=== PATIENT | male | born 1965 | race Caucasian/White ===

== ENCOUNTER 2017-06-09 15:10 | Emergency (ER) | payer OTHER ==
[~2017-06-09] VITALS: Ht 188 cm; Wt 94.0 kg
[2017-06-09] MEDS ORDERED: HALO1 PO (15:32)
[2017-06-09] MEDS ORDERED: PROZ10 PO (15:32)
[2017-06-09 15:38] LABS: BASOPHILS % (AUTO) 0.6 % (0.0-2.0); EOSINOPHILS % (AUTO) 3.7 % (1.0-6.0); HEMATOCRIT 49.1 % (41-53); HEMOGLOBIN 17.1 g/dL (13.5-17.5); LYMPHOCYTES % (AUTO) 35.5 % (22.0-44.0); MEAN CORPUSCULAR HEMOGLOBIN 32.6 pg (26.0-34.0); MEAN CORPUSCULAR HGB CONC 34.9 G/dL (31.0-37.0); MEAN CORPUSCULAR VOLUME 93 fL (80-100); MONOCYTES # (AUTO) 0.4 K/uL (0.1-1.0); MONOCYTES % (AUTO) 7.2 % (2.0-9.0); PLATELET COUNT (AUTO) 227 K/uL (150-450); RED BLOOD CELL COUNT(AUTO) 5.26 MIL/uL (4.50-5.90); RED CELL DISTRIBUTION WIDTH 12.6 % (11.5-14.5); WHITE BLOOD COUNT (AUTO) 5.7 K/uL (4.5-11.0)
[2017-06-09 15:47] LABS: ANION GAP 8 mmol/L (8-16); CALCIUM, TOTAL 9.1 mg/dL (8.8-10.5); CARBON DIOXIDE 28 mmol/L (22-29); CHLORIDE 101 mmol/L (98-107); CREATININE 0.74 mg/dL (0.60-1.30); GLOMERULAR FILTR. RATE CALC > 60 mL/min (>60); POTASSIUM 3.8 mmol/L (3.5-5.1); SODIUM SERUM 137 mmol/L (136-145); UREA NITROGEN, BLOOD 6 mg/dL (7-18)
[2017-06-09 15:51] LABS: ALANINE AMINOTRANSFERASE 22 U/L (12-78); ALBUMIN 3.9 g/dL (3.4-5.0); ASPARTATE AMINOTRANSFERASE 12 U/L (15-37); TOTAL PROTEIN, SERUM 7.2 g/dL (6.4-8.2)
[2017-06-09] MEDS ORDERED: HALOPERIDOL 5 MG TABLET PO ONE (17:00)
[2017-06-09 17:01] VITALS: BP 116/94
[2017-06-10 12:12] LABS: GLUCOSE,POINT OF CARE 150 MG/DL (70-110)
== END 2017-06-09 17:22 | disposition home or self-care (01) ==
LOC: EMS 15:11
DX: F20.0 Paranoid schizophrenia (principal)
CPT/HCPCS: 36415; 80053; 80307; 82962; 85025; 99284; G0480

== ENCOUNTER 2017-07-31 13:44 | Emergency (ER) | payer OTHER ==
[~2017-07-31] VITALS: Ht 188 cm; Wt 95.0 kg
[~2017-07-31 13:44] MED LIST: HALO1 PO; PROZ10 PO
[2017-07-31] MEDS ORDERED: TRAZ-144 PO (13:58)
[2017-07-31] MEDS ORDERED: BENZ1TAB10 PO (13:58)
[2017-07-31] MEDS ORDERED: CIPROFLOXACIN 400 MG/D5% WATER 200 ML IV ONE (14:15)
[2017-07-31] MEDS ORDERED: KETOROLAC TROMETHAMINE 30 MG/ML VIAL IVP ONE (14:15)
[2017-07-31] MEDS ORDERED: CEFTAROLINE 600 MG/D5W 250 ML IV ONE (14:15)
[2017-07-31 14:36] LABS: BASOPHILS % (AUTO) 0.3 % (0.0-2.0); EOSINOPHILS % (AUTO) 3.3 % (1.0-6.0); HEMOGLOBIN 14.6 g/dL (13.5-17.5); LYMPHOCYTES # (AUTO) 1.6 K/uL (1.0-4.8); LYMPHOCYTES % (AUTO) 19.5 % (22.0-44.0); MEAN CORPUSCULAR HEMOGLOBIN 33.2 pg (26.0-34.0); MEAN CORPUSCULAR HGB CONC 34.8 G/dL (31.0-37.0); MEAN CORPUSCULAR VOLUME 95 fL (80-100); MONOCYTES # (AUTO) 0.7 K/uL (0.1-1.0); MONOCYTES % (AUTO) 8.4 % (2.0-9.0); NEUTROPHILS # (AUTO) 5.5 K/uL (1.8-7.7); NEUTROPHILS % (AUTO) 68.5 % (40.0-70.0); PLATELET COUNT (AUTO) 209 K/uL (150-450); RED BLOOD CELL COUNT(AUTO) 4.41 MIL/uL (4.50-5.90); RED CELL DISTRIBUTION WIDTH 12.9 % (11.5-14.5)
[2017-07-31 14:38] LABS: ANION GAP 3 mmol/L (8-16); CALCIUM, TOTAL 8.2 mg/dL (8.8-10.5); CARBON DIOXIDE 32 mmol/L (22-29); CHLORIDE 103 mmol/L (98-107); CREATININE 0.84 mg/dL (0.60-1.30); GLOMERULAR FILTR. RATE CALC > 60 mL/min (>60); POTASSIUM 3.8 mmol/L (3.5-5.1); SODIUM SERUM 138 mmol/L (136-145); UREA NITROGEN, BLOOD 13 mg/dL (7-18)
[2017-07-31 14:44] LABS: ALANINE AMINOTRANSFERASE 47 U/L (12-78); ALBUMIN 3.4 g/dL (3.4-5.0); ASPARTATE AMINOTRANSFERASE 25 U/L (15-37); BILIRUBIN,TOTAL 0.4 mg/dL (0.1-1.0); TOTAL PROTEIN, SERUM 6.7 g/dL (6.4-8.2)
[2017-07-31] MEDS ORDERED: SODIUM CHLORIDE 0.9% 1,000 ML IV ONE (16:00)
[2017-07-31] MEDS ORDERED: MUPIROCIN CALCIUM 2% 22 GM OINTMENT TP ONE (16:45)
[2017-07-31] MEDS ORDERED: PERTUSS(ACELL),DIPH,TET VAC/PF 0.5 ML VIAL IM ONE (16:45)
[2017-07-31 16:52] VITALS: BP 146/97
== END 2017-07-31 17:08 | disposition home or self-care (01) ==
LOC: EMS 13:45 → EEVIPCON 13:45 → EMS 17:08
DX: S90.822A Blister (nonthermal), left foot, initial encounter (principal); E11.621 Type 2 diabetes mellitus with foot ulcer; L97.529 Non-pressure chronic ulcer of other part of left foot with unspecified severity; L03.116 Cellulitis of left lower limb; F72 Severe intellectual disabilities; X58.XXXA Exposure to other specified factors, initial encounter; Y93.89 Activity, other specified; Y92.89 Other specified places as the place of occurrence of the external cause; Y99.8 Other external cause status
CPT/HCPCS: 36415; 80053; 80307; 82962; 85025; 90471; 90715; 96365; 96367; 96375; 99284; G0480; J0712; J0744; J1885; J7030

== ENCOUNTER 2017-08-04 02:42 | Inpatient (IN) | payer MEDICAID, OTHER ==
[~2017-08-04] VITALS: Ht 188 cm; Wt 94.3 kg
[~2017-08-04 02:42] MED LIST changes: +BENZ1TAB10 PO; +TRAZ-144 PO
[2017-08-04] MEDS ORDERED: INFLUENZA VIRUS VACCINE QVS 2017-18 (3YR+)/PF 60 MCG/0.5 ML SYRINGE IM ONE (05:45)
[2017-08-04] MEDS ORDERED: PNEUMOCOCCAL VACCINE POLYVALENT 0.5 ML VIAL [PPSV23] IM ONE (05:45)
[2017-08-04] MEDS ORDERED: QUEtiapine FUMARATE 100 MG TABLET PO PRN (05:45)
[2017-08-04 06:04] VITALS: BP 149/98
[2017-08-04] MEDS ORDERED: GLUCAGON,HUMAN RECOMBINANT 1 MG VIAL IM PRN (08:45)
[2017-08-04] MEDS ORDERED: FLUO-191 PO (08:55)
[2017-08-04] MEDS ORDERED: HALO5 PO (08:55)
[2017-08-04] MEDS ORDERED: HALOPERIDOL 10 MG TABLET PO PRN (09:00)
[2017-08-04] MEDS ORDERED: INSNOV SQ (09:03)
[2017-08-04] MEDS ORDERED: INSLAN SQ (09:03)
[2017-08-04] MEDS: BENZTROPINE MESYLATE 1 MG TABLET PO SCH ×2 (09:25→20:44)
[2017-08-04] MEDS: FLUoxetine HCL 20 MG CAPSULE PO SCH (09:25)
[2017-08-04] MEDS: HALOPERIDOL 5 MG TABLET PO SCH ×2 (09:26→20:44)
[2017-08-04 09:43] LABS: GLUCOSE,POINT OF CARE 322 MG/DL (70-110)
[2017-08-04] MEDS ORDERED: ACETAMINOPHEN 325 MG TABLET PO PRN (10:00)
[2017-08-04 10:14] VITALS: BP 138/96
[2017-08-04] MEDS: IBUPROFEN 800 MG TABLET PO PRN (10:14)
[2017-08-04] MEDS: INSULIN ASPART 100 UNITS/ML SQ PRN ×2 (11:44→20:49)
[2017-08-04 12:25] VITALS: BP 132/88
[2017-08-04 14:59] LABS: GLUCOSE COMMENT 1 Received Meds; GLUCOSE,POINT OF CARE 320 MG/DL (70-110)
[2017-08-04] MEDS ORDERED: HALOPERIDOL LACTATE 5 MG/ML VIAL IM ONE (16:45)
[2017-08-04] MEDS ORDERED: DiphenhydrAMINE HCL 50 MG/ML VIAL IM ONE (16:45)
[2017-08-04] MEDS ORDERED: LORazepam 2 MG/ML VIAL IM ONE (16:45)
[2017-08-04 17:55] VITALS: BP 132/76
[2017-08-04 21:47] LABS: GLUCOSE COMMENT 1 Received Meds; GLUCOSE,POINT OF CARE 254 MG/DL (70-110)
[2017-08-05] MEDS: IBUPROFEN 800 MG TABLET PO PRN (03:54)
[2017-08-05 04:00] VITALS: BP 139/90
[2017-08-05 06:13] LABS: GLUCOSE,POINT OF CARE 280 MG/DL (70-110)
[2017-08-05] MEDS: INSULIN ASPART 100 UNITS/ML SQ PRN ×4 (06:28→20:59)
[2017-08-05] MEDS: FLUoxetine HCL 20 MG CAPSULE PO SCH (08:33)
[2017-08-05] MEDS: HALOPERIDOL 5 MG TABLET PO SCH ×2 (08:33→20:54)
[2017-08-05] MEDS: BENZTROPINE MESYLATE 1 MG TABLET PO SCH ×2 (08:33→20:53)
[2017-08-05] MEDS: LORazepam 1 MG TABLET PO PRN ×2 (10:28→17:18)
[2017-08-05 11:38] LABS: GLUCOSE,POINT OF CARE 86 MG/DL (70-110)
[2017-08-05 15:12] VITALS: BP 134/82
[2017-08-05 16:00] VITALS: BP 136/80
[2017-08-05] MEDS: MetFORMIN HCL 500 MG TABLET PO SCH (17:18)
[2017-08-05] MEDS: HALOPERIDOL 5 MG TABLET PO PRN (17:18)
[2017-08-05 17:37] LABS: GLUCOSE COMMENT 1 Received Meds; GLUCOSE,POINT OF CARE 241 MG/DL (70-110)
[2017-08-05] MEDS: ZOLPIDEM TARTRATE 10 MG TABLET PO PRN (20:54)
[2017-08-05 21:02] LABS: GLUCOSE,POINT OF CARE 233 MG/DL (70-110)
[2017-08-06 06:27] LABS: GLUCOSE,POINT OF CARE 248 MG/DL (70-110)
[2017-08-06] MEDS: MetFORMIN HCL 500 MG TABLET PO SCH ×2 (06:30→17:34)
[2017-08-06] MEDS: INSULIN ASPART 100 UNITS/ML SQ PRN ×4 (06:33→21:00)
[2017-08-06 08:16] VITALS: BP 158/89
[2017-08-06] MEDS: LORazepam 1 MG TABLET PO PRN ×2 (10:00→14:06)
[2017-08-06] MEDS: HALOPERIDOL 5 MG TABLET PO SCH ×2 (10:00→21:28)
[2017-08-06] MEDS: BENZTROPINE MESYLATE 1 MG TABLET PO SCH ×2 (10:00→21:28)
[2017-08-06] MEDS: FLUoxetine HCL 20 MG CAPSULE PO SCH (10:00)
[2017-08-06 11:38] LABS: GLUCOSE,POINT OF CARE 171 MG/DL (70-110)
[2017-08-06] MEDS: IBUPROFEN 800 MG TABLET PO PRN (13:07)
[2017-08-06] MEDS: HALOPERIDOL 5 MG TABLET PO PRN (14:06)
[2017-08-06 16:00] VITALS: BP 136/86
[2017-08-06 16:53] LABS: GLUCOSE COMMENT 1 Received Meds; GLUCOSE,POINT OF CARE 280 MG/DL (70-110)
[2017-08-06 20:28] LABS: GLUCOSE,POINT OF CARE 165 MG/DL (70-110)
[2017-08-06] MEDS: ZOLPIDEM TARTRATE 10 MG TABLET PO PRN (21:28)
[2017-08-07 03:23] VITALS: BP 145/94
[2017-08-07 06:23] LABS: GLUCOSE,POINT OF CARE 222 MG/DL (70-110)
[2017-08-07] MEDS: MetFORMIN HCL 500 MG TABLET PO SCH ×2 (06:31→16:49)
[2017-08-07] MEDS: INSULIN ASPART 100 UNITS/ML SQ PRN ×4 (06:39→20:41)
[2017-08-07 08:21] VITALS: BP 132/82
[2017-08-07] MEDS: BENZTROPINE MESYLATE 1 MG TABLET PO SCH ×2 (08:38→20:40)
[2017-08-07] MEDS: FLUoxetine HCL 20 MG CAPSULE PO SCH (08:39)
[2017-08-07] MEDS: HALOPERIDOL 5 MG TABLET PO SCH (08:39)
[2017-08-07] MEDS: IBUPROFEN 800 MG TABLET PO PRN ×2 (08:42→19:43)
[2017-08-07 13:20] LABS: GLUCOSE,POINT OF CARE 163 MG/DL (70-110)
[2017-08-07 16:00] VITALS: BP 137/87
[2017-08-07] MEDS: LORazepam 1 MG TABLET PO PRN (16:49)
[2017-08-07] MEDS: HALOPERIDOL 5 MG TABLET PO PRN (16:50)
[2017-08-07] MEDS: HALOPERIDOL 10 MG TABLET PO SCH (20:40)
[2017-08-07] MEDS: ZOLPIDEM TARTRATE 10 MG TABLET PO PRN (20:40)
[2017-08-08 01:20] VITALS: BP 132/75
[2017-08-08 01:48] LABS: GLUCOSE COMMENT 1 Received Meds; GLUCOSE,POINT OF CARE 232 MG/DL (70-110)
[2017-08-08 01:53] LABS: GLUCOSE COMMENT 1 Received Meds; GLUCOSE,POINT OF CARE 162 MG/DL (70-110)
[2017-08-08] MEDS: MetFORMIN HCL 500 MG TABLET PO SCH ×2 (06:51→17:20)
[2017-08-08] MEDS: INSULIN ASPART 100 UNITS/ML SQ PRN ×3 (06:53→21:13)
[2017-08-08 08:22] VITALS: BP 138/82
[2017-08-08] MEDS: HALOPERIDOL 5 MG TABLET PO SCH (08:47)
[2017-08-08] MEDS: BENZTROPINE MESYLATE 1 MG TABLET PO SCH ×2 (08:47→21:10)
[2017-08-08] MEDS: FLUoxetine HCL 20 MG CAPSULE PO SCH (08:47)
[2017-08-08] MEDS: LORazepam 1 MG TABLET PO PRN ×2 (08:47→17:20)
[2017-08-08 09:20] LABS: GLUCOSE,POINT OF CARE 220 MG/DL (70-110)
[2017-08-08 11:17] LABS: GLUCOSE,POINT OF CARE 143 MG/DL (70-110)
[2017-08-08 16:00] VITALS: BP 139/87
[2017-08-08 17:03] LABS: GLUCOSE COMMENT 1 Received Meds; GLUCOSE,POINT OF CARE 275 MG/DL (70-110)
[2017-08-08] MEDS: HALOPERIDOL 5 MG TABLET PO PRN (17:20)
[2017-08-08] MEDS: IBUPROFEN 800 MG TABLET PO PRN (17:21)
[2017-08-08 20:12] LABS: GLUCOSE COMMENT 1 Received Meds; GLUCOSE,POINT OF CARE 165 MG/DL (70-110)
[2017-08-08] MEDS: HALOPERIDOL 10 MG TABLET PO SCH (21:10)
[2017-08-08] MEDS: ZOLPIDEM TARTRATE 10 MG TABLET PO PRN (21:11)
[2017-08-09 02:30] VITALS: BP 115/88
[2017-08-09] MEDS: IBUPROFEN 800 MG TABLET PO PRN (02:38)
[2017-08-09 06:08] LABS: GLUCOSE,POINT OF CARE 214 MG/DL (70-110)
[2017-08-09] MEDS: MetFORMIN HCL 500 MG TABLET PO SCH ×2 (06:33→17:15)
[2017-08-09] MEDS: INSULIN ASPART 100 UNITS/ML SQ PRN ×3 (06:36→17:17)
[2017-08-09 08:24] VITALS: BP 128/84
[2017-08-09] MEDS: HALOPERIDOL 5 MG TABLET PO SCH (08:39)
[2017-08-09] MEDS: BENZTROPINE MESYLATE 1 MG TABLET PO SCH ×2 (08:39→20:39)
[2017-08-09] MEDS: FLUoxetine HCL 20 MG CAPSULE PO SCH (08:39)
[2017-08-09 11:02] LABS: GLUCOSE COMMENT 1 Received Meds; GLUCOSE,POINT OF CARE 181 MG/DL (70-110)
[2017-08-09] MEDS: LORazepam 1 MG TABLET PO PRN (13:34)
[2017-08-09 16:00] VITALS: BP 140/86
[2017-08-09 17:02] LABS: GLUCOSE,POINT OF CARE 249 MG/DL (70-110)
[2017-08-09 20:27] LABS: GLUCOSE,POINT OF CARE 138 MG/DL (70-110)
[2017-08-09] MEDS: ZOLPIDEM TARTRATE 10 MG TABLET PO PRN (20:39)
[2017-08-09] MEDS: HALOPERIDOL 10 MG TABLET PO SCH (20:39)
[2017-08-09] MEDS: MAGNESIUM SULFATE 454 GM BOX TP SCH (20:40)
[2017-08-10 00:13] VITALS: BP 116/72
[2017-08-10 06:12] LABS: GLUCOSE,POINT OF CARE 193 MG/DL (70-110)
[2017-08-10] MEDS: MetFORMIN HCL 500 MG TABLET PO SCH ×2 (06:43→16:53)
[2017-08-10] MEDS: INSULIN ASPART 100 UNITS/ML SQ PRN ×4 (06:46→20:35)
[2017-08-10 08:35] VITALS: BP 135/83
[2017-08-10] MEDS ORDERED: MAGNESIUM SULFATE 454 GM BOX TP SCH (09:00)
[2017-08-10] MEDS: HALOPERIDOL 5 MG TABLET PO SCH (09:48)
[2017-08-10] MEDS: MAGNESIUM SULFATE 454 GM BOX TP SCH (09:48)
[2017-08-10] MEDS: BENZTROPINE MESYLATE 1 MG TABLET PO SCH ×2 (09:48→20:31)
[2017-08-10] MEDS: FLUoxetine HCL 20 MG CAPSULE PO SCH (09:48)
[2017-08-10 11:38] LABS: GLUCOSE,POINT OF CARE 190 MG/DL (70-110)
[2017-08-10 16:37] VITALS: BP 128/87
[2017-08-10 17:42] LABS: GLUCOSE,POINT OF CARE 170 MG/DL (70-110)
[2017-08-10] MEDS: ZOLPIDEM TARTRATE 10 MG TABLET PO PRN (20:30)
[2017-08-10] MEDS: IBUPROFEN 800 MG TABLET PO PRN (20:31)
[2017-08-10] MEDS: HALOPERIDOL 10 MG TABLET PO SCH (20:31)
[2017-08-10 21:12] LABS: GLUCOSE,POINT OF CARE 154 MG/DL (70-110)
[2017-08-11 06:23] LABS: GLUCOSE,POINT OF CARE 197 MG/DL (70-110)
[2017-08-11] MEDS: MetFORMIN HCL 500 MG TABLET PO SCH ×2 (06:23→17:15)
[2017-08-11] MEDS: INSULIN ASPART 100 UNITS/ML SQ PRN ×4 (06:25→21:00)
[2017-08-11 06:43] VITALS: BP 133/88
[2017-08-11 08:26] VITALS: BP 134/98
[2017-08-11] MEDS: IBUPROFEN 800 MG TABLET PO PRN ×2 (09:59→21:25)
[2017-08-11] MEDS: MAGNESIUM SULFATE 454 GM BOX TP SCH (09:59)
[2017-08-11] MEDS: FLUoxetine HCL 20 MG CAPSULE PO SCH (09:59)
[2017-08-11] MEDS: HALOPERIDOL 5 MG TABLET PO SCH (09:59)
[2017-08-11] MEDS: BENZTROPINE MESYLATE 1 MG TABLET PO SCH ×2 (09:59→21:25)
[2017-08-11 11:27] LABS: GLUCOSE,POINT OF CARE 143 MG/DL (70-110)
[2017-08-11 16:14] VITALS: BP 135/79
[2017-08-11] MEDS: HALOPERIDOL 5 MG TABLET PO PRN (17:15)
[2017-08-11] MEDS: LORazepam 1 MG TABLET PO PRN (17:15)
[2017-08-11 17:28] LABS: GLUCOSE COMMENT 1 Received Meds; GLUCOSE,POINT OF CARE 255 MG/DL (70-110)
[2017-08-11 20:27] LABS: GLUCOSE COMMENT 1 Received Meds; GLUCOSE,POINT OF CARE 198 MG/DL (70-110)
[2017-08-11] MEDS: ZOLPIDEM TARTRATE 10 MG TABLET PO PRN (21:25)
[2017-08-11] MEDS: HALOPERIDOL 10 MG TABLET PO SCH (21:25)
[2017-08-12 01:57] VITALS: BP 133/82
[2017-08-12 06:43] LABS: GLUCOSE,POINT OF CARE 196 MG/DL (70-110)
[2017-08-12] MEDS: IBUPROFEN 800 MG TABLET PO PRN (06:45)
[2017-08-12] MEDS: MetFORMIN HCL 500 MG TABLET PO SCH ×2 (06:47→17:25)
[2017-08-12] MEDS: INSULIN ASPART 100 UNITS/ML SQ PRN ×3 (06:50→17:26)
[2017-08-12 08:16] VITALS: BP 135/83
[2017-08-12] MEDS: FLUoxetine HCL 20 MG CAPSULE PO SCH (09:57)
[2017-08-12] MEDS: LORazepam 1 MG TABLET PO PRN ×2 (09:57→17:25)
[2017-08-12] MEDS: MAGNESIUM SULFATE 454 GM BOX TP SCH (09:58)
[2017-08-12] MEDS: BENZTROPINE MESYLATE 1 MG TABLET PO SCH ×2 (09:58→20:27)
[2017-08-12] MEDS: HALOPERIDOL 5 MG TABLET PO SCH (09:58)
[2017-08-12 11:59] LABS: GLUCOSE,POINT OF CARE 155 MG/DL (70-110)
[2017-08-12 16:00] VITALS: BP 138/82
[2017-08-12] MEDS: HALOPERIDOL 5 MG TABLET PO PRN (17:25)
[2017-08-12 17:53] LABS: GLUCOSE COMMENT 1 Received Meds; GLUCOSE,POINT OF CARE 225 MG/DL (70-110)
[2017-08-12] MEDS: HALOPERIDOL 10 MG TABLET PO SCH (20:27)
[2017-08-12] MEDS: ZOLPIDEM TARTRATE 10 MG TABLET PO PRN (20:27)
[2017-08-12 22:23] LABS: GLUCOSE,POINT OF CARE 136 MG/DL (70-110)
[2017-08-13 04:00] VITALS: BP 143/80
[2017-08-13] MEDS: IBUPROFEN 800 MG TABLET PO PRN ×3 (04:08→18:41)
[2017-08-13] MEDS: INSULIN ASPART 100 UNITS/ML SQ PRN ×3 (06:30→20:15)
[2017-08-13] MEDS: MetFORMIN HCL 500 MG TABLET PO SCH ×2 (06:36→16:34)
[2017-08-13 06:37] LABS: GLUCOSE,POINT OF CARE 178 MG/DL (70-110)
[2017-08-13 08:19] LABS: BASOPHILS # (AUTO) 0.02 K/uL (0.00-0.20); BASOPHILS % (AUTO) 0.4 % (0.0-2.0); EOSINOPHILS % (AUTO) 3.91 % (1.0-6.0); HEMATOCRIT 48.7 % (41-53); HEMOGLOBIN 16.6 g/dL (13.5-17.5); LYMPHOCYTES # (AUTO) 1.4 K/uL (1.0-4.8); LYMPHOCYTES % (AUTO) 27.2 % (22.0-44.0); MEAN CORPUSCULAR HEMOGLOBIN 32.8 pg (26.0-34.0); MEAN CORPUSCULAR HGB CONC 34.1 G/dL (31.0-37.0); MEAN CORPUSCULAR VOLUME 96 fL (80-100); MONOCYTES # (AUTO) 0.4 K/uL (0.1-1.0); MONOCYTES % (AUTO) 7.8 % (2.0-9.0); NEUTROPHILS # (AUTO) 3.1 K/uL (1.8-7.7); NEUTROPHILS % (AUTO) 60.8 % (40.0-70.0); PLATELET COUNT (AUTO) 220 K/uL (150-450); RED BLOOD CELL COUNT(AUTO) 5.05 MIL/uL (4.50-5.90); RED CELL DISTRIBUTION WIDTH 12.9 % (11.5-14.5); WHITE BLOOD COUNT (AUTO) 5.1 K/uL (4.5-11.0)
[2017-08-13 08:45] VITALS: BP 138/84
[2017-08-13] MEDS: FLUoxetine HCL 20 MG CAPSULE PO SCH (08:49)
[2017-08-13] MEDS: MAGNESIUM SULFATE 454 GM BOX TP SCH (08:49)
[2017-08-13] MEDS: LORazepam 1 MG TABLET PO PRN ×2 (08:49→16:34)
[2017-08-13] MEDS: HALOPERIDOL 5 MG TABLET PO SCH (08:49)
[2017-08-13] MEDS: BENZTROPINE MESYLATE 1 MG TABLET PO SCH ×2 (08:49→20:14)
[2017-08-13 09:08] LABS: ALANINE AMINOTRANSFERASE 20 U/L (12-78); ALBUMIN 3.8 g/dL (3.4-5.0); ANION GAP 4 mmol/L (8-16); ASPARTATE AMINOTRANSFERASE 9 U/L (15-37); BILIRUBIN,TOTAL 0.6 mg/dL (0.1-1.0); CALCIUM, TOTAL 8.8 mg/dL (8.8-10.5); CARBON DIOXIDE 33 mmol/L (22-29); CHLORIDE 102 mmol/L (98-107); GLOMERULAR FILTR. RATE CALC > 60 mL/min (>60); POTASSIUM 4.1 mmol/L (3.5-5.1); SODIUM SERUM 139 mmol/L (136-145); TOTAL PROTEIN, SERUM 6.5 g/dL (6.4-8.2); UREA NITROGEN, BLOOD 17 mg/dL (7-18)
[2017-08-13] MEDS: HALOPERIDOL 5 MG TABLET PO PRN (16:34)
[2017-08-13 16:54] VITALS: BP 131/85
[2017-08-13 17:08] LABS: GLUCOSE COMMENT 1 Received Meds; GLUCOSE,POINT OF CARE 216 MG/DL (70-110)
[2017-08-13] MEDS: ZOLPIDEM TARTRATE 10 MG TABLET PO PRN (20:14)
[2017-08-13] MEDS: HALOPERIDOL 10 MG TABLET PO SCH (20:14)
[2017-08-13 21:37] LABS: GLUCOSE COMMENT 1 Received Meds; GLUCOSE,POINT OF CARE 159 MG/DL (70-110)
[2017-08-14 05:53] VITALS: BP 125/86
[2017-08-14] MEDS: INSULIN ASPART 100 UNITS/ML SQ PRN ×4 (06:41→20:39)
[2017-08-14 06:44] LABS: GLUCOSE,POINT OF CARE 156 MG/DL (70-110)
[2017-08-14] MEDS: MetFORMIN HCL 500 MG TABLET PO SCH ×2 (06:55→16:53)
[2017-08-14 08:35] VITALS: BP 129/80
[2017-08-14] MEDS: FLUoxetine HCL 20 MG CAPSULE PO SCH (08:57)
[2017-08-14] MEDS: BENZTROPINE MESYLATE 1 MG TABLET PO SCH ×2 (08:57→20:38)
[2017-08-14] MEDS: HALOPERIDOL 5 MG TABLET PO SCH (08:57)
[2017-08-14] MEDS: LORazepam 1 MG TABLET PO PRN ×3 (08:58→21:00)
[2017-08-14] MEDS: MAGNESIUM SULFATE 454 GM BOX TP SCH (08:58)
[2017-08-14 11:13] LABS: GLUCOSE COMMENT 1 Received Meds; GLUCOSE,POINT OF CARE 150 MG/DL (70-110)
[2017-08-14 16:00] VITALS: BP 123/81
[2017-08-14] MEDS: HALOPERIDOL 5 MG TABLET PO PRN (16:55)
[2017-08-14 17:22] LABS: GLUCOSE COMMENT 1 Received Meds; GLUCOSE,POINT OF CARE 187 MG/DL (70-110)
[2017-08-14] MEDS: GABAPENTIN 100 MG CAPSULE PO SCH (20:34)
[2017-08-14] MEDS: HALOPERIDOL 10 MG TABLET PO SCH (20:38)
[2017-08-14] MEDS: ZOLPIDEM TARTRATE 10 MG TABLET PO PRN (21:00)
[2017-08-15 05:17] VITALS: BP 119/82
[2017-08-15 05:58] LABS: GLUCOSE COMMENT 1 Received Meds; GLUCOSE,POINT OF CARE 171 MG/DL (70-110)
[2017-08-15] MEDS: MetFORMIN HCL 500 MG TABLET PO SCH (06:26)
[2017-08-15] MEDS: INSULIN ASPART 100 UNITS/ML SQ PRN ×2 (06:29→12:14)
[2017-08-15 08:19] VITALS: BP 137/87
[2017-08-15] MEDS: BENZTROPINE MESYLATE 1 MG TABLET PO SCH (09:15)
[2017-08-15] MEDS: HALOPERIDOL 5 MG TABLET PO SCH (09:15)
[2017-08-15] MEDS: FLUoxetine HCL 20 MG CAPSULE PO SCH (09:15)
[2017-08-15] MEDS: GABAPENTIN 100 MG CAPSULE PO SCH (09:15)
[2017-08-15] MEDS: LORazepam 1 MG TABLET PO PRN (09:15)
[2017-08-15 11:47] LABS: GLUCOSE,POINT OF CARE 196 MG/DL (70-110)
[2017-08-15 12:18] LABS: GLUCOSE,POINT OF CARE 197 MG/DL (70-110)
[2017-08-15] MEDS ORDERED: METF500T4 PO (13:08)
[2017-08-15] MEDS ORDERED: HALO10 PO (13:10)
== END 2017-08-15 14:00 | disposition home or self-care (01) | DRG 750 ==
LOC: B2S 04:00 → EDSTATUS 05:39 → B3A 08-05 08:32
DX: F20.0 Paranoid schizophrenia (principal); E11.42 Type 2 diabetes mellitus with diabetic polyneuropathy; E11.65 Type 2 diabetes mellitus with hyperglycemia; G47.00 Insomnia, unspecified; I10 Essential (primary) hypertension; K21.9 Gastro-esophageal reflux disease without esophagitis; K59.00 Constipation, unspecified; M79.671 Pain in right foot; M79.672 Pain in left foot; M79.89 Other specified soft tissue disorders; R62.50 Unspecified lack of expected normal physiological development in childhood; Z59.0 Homelessness; Z79.899 Other long term (current) drug therapy; Z79.4 Long term (current) use of insulin; Z28.21 Immunization not carried out because of patient refusal
CPT/HCPCS: 82962; J1200; J1630; J2060

== ENCOUNTER 2017-08-21 16:48 | Inpatient (IN) | payer MEDICAID, OTHER ==
[~2017-08-21] VITALS: Ht 188 cm; Wt 89.2 kg
[~2017-08-21 16:48] MED LIST changes: +FLUO-191 PO; -HALO1 PO; +HALO10 PO; +HALO5 PO; +METF500T4 PO; -PROZ10 PO; -TRAZ-144 PO
[2017-08-21 17:07] LABS: GLUCOSE,POINT OF CARE 265 MG/DL (70-110)
[2017-08-21 18:21] LABS: BASOPHILS # (AUTO) 0.04 K/uL (0.00-0.20); BASOPHILS % (AUTO) 0.6 % (0.0-2.0); EOSINOPHILS # (AUTO) 0.08 K/uL (0.00-0.70); EOSINOPHILS % (AUTO) 1.37 % (1.0-6.0); HEMATOCRIT 44.1 % (41-53); HEMOGLOBIN 15.2 g/dL (13.5-17.5); LYMPHOCYTES # (AUTO) 1.4 K/uL (1.0-4.8); LYMPHOCYTES % (AUTO) 23.9 % (22.0-44.0); MEAN CORPUSCULAR HEMOGLOBIN 32.8 pg (26.0-34.0); MEAN CORPUSCULAR HGB CONC 34.5 G/dL (31.0-37.0); MEAN CORPUSCULAR VOLUME 95 fL (80-100); MONOCYTES # (AUTO) 0.5 K/uL (0.1-1.0); MONOCYTES % (AUTO) 9.4 % (2.0-9.0); NEUTROPHILS # (AUTO) 3.7 K/uL (1.8-7.7); NEUTROPHILS % (AUTO) 64.7 % (40.0-70.0); PLATELET COUNT (AUTO) 204 K/uL (150-450); RED BLOOD CELL COUNT(AUTO) 4.63 MIL/uL (4.50-5.90); RED CELL DISTRIBUTION WIDTH 12.6 % (11.5-14.5); WHITE BLOOD COUNT (AUTO) 5.7 K/uL (4.5-11.0)
[2017-08-21 18:41] LABS: ANION GAP 12 mmol/L (8-16); CALCIUM, TOTAL 8.6 mg/dL (8.8-10.5); CARBON DIOXIDE 26 mmol/L (22-29); CHLORIDE 101 mmol/L (98-107); CREATININE 1.05 mg/dL (0.60-1.30); GLOMERULAR FILTR. RATE CALC > 60 mL/min (>60); POTASSIUM 3.1 mmol/L (3.5-5.1); SODIUM SERUM 139 mmol/L (136-145); UREA NITROGEN, BLOOD 12 mg/dL (7-18)
[2017-08-21 18:46] LABS: ALANINE AMINOTRANSFERASE 16 U/L (12-78); ALBUMIN 3.5 g/dL (3.4-5.0); ASPARTATE AMINOTRANSFERASE 14 U/L (15-37); BILIRUBIN,TOTAL 0.8 mg/dL (0.1-1.0); TOTAL PROTEIN, SERUM 6.7 g/dL (6.4-8.2)
[2017-08-21] MEDS ORDERED: POTASSIUM CHLORIDE 20 MEQ ER TABLET PO ONE (20:00)
[2017-08-21] MEDS: HALOPERIDOL 10 MG TABLET PO SCH (20:29)
[2017-08-21 21:16] LABS: CHOL/HDL RATIO 2.4 (4.2-7.3); THYROID STIMULATING HORMONE 0.84 uIU/mL (0.36-3.74)
[2017-08-21] MEDS: LORazepam 2 MG TABLET PO PRN (23:07)
[2017-08-21] MEDS: ZOLPIDEM TARTRATE 10 MG TABLET PO PRN (23:08)
[2017-08-22 00:40] VITALS: BP 118/72
[2017-08-22 00:43] LABS: GLUCOSE,POINT OF CARE 211 MG/DL (70-110)
[2017-08-22] MEDS ORDERED: INFLUENZA VIRUS VACCINE QVS 2017-18 (3YR+)/PF 60 MCG/0.5 ML SYRINGE IM ONE (01:15)
[2017-08-22] MEDS ORDERED: PETROLATUM,WHITE 71 GM JELLY TP PRN (07:30)
[2017-08-22] MEDS ORDERED: ACETAMINOPHEN 325 MG TABLET PO PRN (07:30)
[2017-08-22] MEDS ORDERED: ONDANSETRON HCL 4 MG TABLET PO PRN (07:30)
[2017-08-22] MEDS ORDERED: MAGNESIUM HYDROXIDE SUSPENSION 30 ML UDCUP PO PRN (07:30)
[2017-08-22] MEDS ORDERED: CloNIDine HCL 0.1 MG TABLET PO PRN (07:30)
[2017-08-22] MEDS ORDERED: ALBUTEROL SULFATE HFA 90 MCG/PUFF 8 GM INHALER IH PRN (07:30)
[2017-08-22] MEDS ORDERED: MAG HYDROX/AL HYDROX/SIMETH ES 30 ML SUSPENSION UDCUP PO PRN (07:30)
[2017-08-22] MEDS ORDERED: LOPERAMIDE HCL 2 MG CAPSULE PO PRN (07:30)
[2017-08-22] MEDS ORDERED: BENZOCAINE/MENTHOL LOZENGE MM PRN (07:30)
[2017-08-22] MEDS ORDERED: BACITRACIN 28.4 GM OINTMENT TP PRN (07:30)
[2017-08-22 08:14] VITALS: BP 138/70
[2017-08-22] MEDS: FLUoxetine HCL 20 MG CAPSULE PO SCH (08:59)
[2017-08-22] MEDS: HALOPERIDOL 5 MG TABLET PO SCH (08:59)
[2017-08-22] MEDS: LISINOPRIL 10 MG TABLET PO SCH (09:03)
[2017-08-22 16:14] VITALS: BP 116/69
[2017-08-22] MEDS: MetFORMIN HCL 500 MG TABLET PO SCH (16:54)
[2017-08-22] MEDS: LORazepam 2 MG TABLET PO PRN (18:09)
[2017-08-22] MEDS: HALOPERIDOL 10 MG TABLET PO SCH (20:05)
[2017-08-22] MEDS: BENZTROPINE MESYLATE 1 MG TABLET PO SCH (20:05)
[2017-08-22] MEDS: ZOLPIDEM TARTRATE 10 MG TABLET PO PRN (20:34)
[2017-08-23 06:30] VITALS: BP 128/73
[2017-08-23] MEDS: MetFORMIN HCL 500 MG TABLET PO SCH ×2 (06:36→16:44)
[2017-08-23] MEDS: FLUoxetine HCL 20 MG CAPSULE PO SCH (08:10)
[2017-08-23] MEDS: LORazepam 2 MG TABLET PO PRN ×2 (08:10→16:45)
[2017-08-23] MEDS: HALOPERIDOL 5 MG TABLET PO SCH (08:11)
[2017-08-23] MEDS: BENZTROPINE MESYLATE 1 MG TABLET PO SCH ×2 (08:11→20:25)
[2017-08-23] MEDS: LISINOPRIL 10 MG TABLET PO SCH (08:11)
[2017-08-23 08:13] VITALS: BP 142/88
[2017-08-23 16:00] VITALS: BP 120/80
[2017-08-23] MEDS: HALOPERIDOL 5 MG TABLET PO PRN (16:45)
[2017-08-23 16:48] LABS: GLUCOSE,POINT OF CARE 131 MG/DL (70-110)
[2017-08-23] MEDS ORDERED: GLUCAGON,HUMAN RECOMBINANT 1 MG VIAL IM PRN (17:00)
[2017-08-23] MEDS: ZOLPIDEM TARTRATE 10 MG TABLET PO PRN (20:25)
[2017-08-23] MEDS: HALOPERIDOL 10 MG TABLET PO SCH (20:25)
[2017-08-23] MEDS: INSULIN ASPART 100 UNITS/ML SQ PRN (20:26)
[2017-08-23 20:28] LABS: GLUCOSE COMMENT 1 Received Meds; GLUCOSE,POINT OF CARE 168 MG/DL (70-110)
[2017-08-24 04:16] VITALS: BP 122/81
[2017-08-24 06:28] LABS: GLUCOSE,POINT OF CARE 145 MG/DL (70-110)
[2017-08-24] MEDS: MetFORMIN HCL 500 MG TABLET PO SCH ×2 (06:41→16:49)
[2017-08-24] MEDS: INSULIN ASPART 100 UNITS/ML SQ PRN ×4 (06:43→21:28)
[2017-08-24 08:05] VITALS: BP 102/67
[2017-08-24] MEDS: BENZTROPINE MESYLATE 1 MG TABLET PO SCH ×2 (08:39→20:47)
[2017-08-24] MEDS: FLUoxetine HCL 20 MG CAPSULE PO SCH (08:39)
[2017-08-24] MEDS: LISINOPRIL 10 MG TABLET PO SCH (08:39)
[2017-08-24] MEDS: LORazepam 2 MG TABLET PO PRN ×3 (08:39→23:59)
[2017-08-24] MEDS: HALOPERIDOL 5 MG TABLET PO SCH (08:39)
[2017-08-24 11:43] LABS: GLUCOSE,POINT OF CARE 170 MG/DL (70-110)
[2017-08-24 16:10] VITALS: BP 125/75
[2017-08-24 17:22] LABS: GLUCOSE,POINT OF CARE 175 MG/DL (70-110)
[2017-08-24] MEDS: ZOLPIDEM TARTRATE 10 MG TABLET PO PRN (20:47)
[2017-08-24] MEDS: HALOPERIDOL 10 MG TABLET PO SCH (20:47)
[2017-08-24 21:02] LABS: GLUCOSE,POINT OF CARE 192 MG/DL (70-110)
[2017-08-24] MEDS: HALOPERIDOL 5 MG TABLET PO PRN (23:59)
[2017-08-25 01:32] VITALS: BP 121/74
[2017-08-25 06:28] LABS: GLUCOSE,POINT OF CARE 179 MG/DL (70-110)
[2017-08-25] MEDS: MetFORMIN HCL 500 MG TABLET PO SCH ×2 (06:36→16:49)
[2017-08-25] MEDS: INSULIN ASPART 100 UNITS/ML SQ PRN ×3 (06:38→20:18)
[2017-08-25] MEDS: BENZTROPINE MESYLATE 1 MG TABLET PO SCH ×2 (08:43→20:11)
[2017-08-25] MEDS: FLUoxetine HCL 20 MG CAPSULE PO SCH (08:44)
[2017-08-25] MEDS: LISINOPRIL 10 MG TABLET PO SCH (08:44)
[2017-08-25] MEDS: HALOPERIDOL 5 MG TABLET PO SCH (08:44)
[2017-08-25] MEDS: LORazepam 2 MG TABLET PO PRN ×3 (08:44→22:06)
[2017-08-25 08:45] VITALS: BP 123/82
[2017-08-25 11:08] LABS: GLUCOSE,POINT OF CARE 144 MG/DL (70-110)
[2017-08-25 16:24] VITALS: BP 126/77
[2017-08-25 17:03] LABS: GLUCOSE,POINT OF CARE 139 MG/DL (70-110)
[2017-08-25] MEDS: HALOPERIDOL 10 MG TABLET PO SCH (20:11)
[2017-08-25] MEDS: ZOLPIDEM TARTRATE 10 MG TABLET PO PRN (20:11)
[2017-08-25 20:22] LABS: GLUCOSE,POINT OF CARE 144 MG/DL (70-110)
[2017-08-26 05:48] VITALS: BP 124/81
[2017-08-26] MEDS: INSULIN ASPART 100 UNITS/ML SQ PRN ×3 (06:25→21:17)
[2017-08-26] MEDS: MetFORMIN HCL 500 MG TABLET PO SCH ×2 (06:25→16:57)
[2017-08-26 06:28] LABS: GLUCOSE,POINT OF CARE 183 MG/DL (70-110)
[2017-08-26 08:12] VITALS: BP 128/82
[2017-08-26] MEDS: BENZTROPINE MESYLATE 1 MG TABLET PO SCH ×2 (08:21→21:15)
[2017-08-26] MEDS: FLUoxetine HCL 20 MG CAPSULE PO SCH (08:21)
[2017-08-26] MEDS: LISINOPRIL 10 MG TABLET PO SCH (08:21)
[2017-08-26] MEDS: HALOPERIDOL 5 MG TABLET PO SCH (08:21)
[2017-08-26] MEDS: IBUPROFEN 600 MG TABLET PO PRN (08:21)
[2017-08-26 09:21] VITALS: BP 122/82
[2017-08-26 11:13] LABS: GLUCOSE,POINT OF CARE 116 MG/DL (70-110)
[2017-08-26] MEDS: LORazepam 2 MG TABLET PO PRN ×3 (12:55→21:15)
[2017-08-26 16:00] VITALS: BP 118/73
[2017-08-26] MEDS: HALOPERIDOL 5 MG TABLET PO PRN (16:58)
[2017-08-26 17:17] LABS: GLUCOSE COMMENT 1 Received Meds; GLUCOSE,POINT OF CARE 163 MG/DL (70-110)
[2017-08-26] MEDS: ZOLPIDEM TARTRATE 10 MG TABLET PO PRN (21:15)
[2017-08-26] MEDS: HALOPERIDOL 10 MG TABLET PO SCH (21:15)
[2017-08-26 21:37] LABS: GLUCOSE COMMENT 1 Received Meds; GLUCOSE,POINT OF CARE 148 MG/DL (70-110)
[2017-08-27 05:10] VITALS: BP 107/68
[2017-08-27 06:03] LABS: GLUCOSE,POINT OF CARE 154 MG/DL (70-110)
[2017-08-27] MEDS: INSULIN ASPART 100 UNITS/ML SQ PRN ×3 (06:08→20:58)
[2017-08-27] MEDS: MetFORMIN HCL 500 MG TABLET PO SCH ×2 (06:09→16:57)
[2017-08-27] MEDS: IBUPROFEN 600 MG TABLET PO PRN (06:16)
[2017-08-27 08:10] VITALS: BP 127/65
[2017-08-27] MEDS: FLUoxetine HCL 20 MG CAPSULE PO SCH (08:43)
[2017-08-27] MEDS: HALOPERIDOL 5 MG TABLET PO SCH (08:43)
[2017-08-27] MEDS: LISINOPRIL 10 MG TABLET PO SCH (08:44)
[2017-08-27] MEDS: BENZTROPINE MESYLATE 1 MG TABLET PO SCH ×2 (08:44→20:57)
[2017-08-27] MEDS: LORazepam 2 MG TABLET PO PRN ×3 (08:44→20:57)
[2017-08-27 11:43] LABS: GLUCOSE,POINT OF CARE 137 MG/DL (70-110)
[2017-08-27 16:00] VITALS: BP 126/75
[2017-08-27] MEDS: HALOPERIDOL 5 MG TABLET PO PRN (16:57)
[2017-08-27 17:12] LABS: GLUCOSE COMMENT 1 Received Meds; GLUCOSE,POINT OF CARE 196 MG/DL (70-110)
[2017-08-27 20:54] LABS: GLUCOSE,POINT OF CARE 166 MG/DL (70-110)
[2017-08-27] MEDS: ZOLPIDEM TARTRATE 10 MG TABLET PO PRN (20:57)
[2017-08-27] MEDS: HALOPERIDOL 10 MG TABLET PO SCH (20:57)
[2017-08-28] MEDS: MetFORMIN HCL 500 MG TABLET PO SCH (06:08)
[2017-08-28] MEDS: INSULIN ASPART 100 UNITS/ML SQ PRN (06:12)
[2017-08-28 06:13] LABS: GLUCOSE,POINT OF CARE 165 MG/DL (70-110)
[2017-08-28 06:30] VITALS: BP 100/72
[2017-08-28 08:08] VITALS: BP 137/81
[2017-08-28] MEDS: LISINOPRIL 10 MG TABLET PO SCH (08:19)
[2017-08-28] MEDS: BENZTROPINE MESYLATE 1 MG TABLET PO SCH (08:19)
[2017-08-28] MEDS: HALOPERIDOL 5 MG TABLET PO SCH (08:19)
[2017-08-28] MEDS: FLUoxetine HCL 20 MG CAPSULE PO SCH (08:19)
[2017-08-28] MEDS: IBUPROFEN 600 MG TABLET PO PRN (08:20)
[2017-08-28] MEDS ORDERED: LISI-661 PO (08:24)
[2017-08-28 11:17] LABS: GLUCOSE,POINT OF CARE 129 MG/DL (70-110)
== END 2017-08-28 13:20 | disposition home or self-care (01) | DRG 750 ==
LOC: EMS 16:50 → EEVIPCON 16:50 → B3A 23:26
DX: F20.0 Paranoid schizophrenia (principal); E11.42 Type 2 diabetes mellitus with diabetic polyneuropathy; R45.851 Suicidal ideations; E11.65 Type 2 diabetes mellitus with hyperglycemia; I10 Essential (primary) hypertension; K21.9 Gastro-esophageal reflux disease without esophagitis; K59.00 Constipation, unspecified; E87.6 Hypokalemia; E55.9 Vitamin D deficiency, unspecified; G31.84 Mild cognitive impairment of uncertain or unknown etiology; F32.9 Major depressive disorder, single episode, unspecified; Z79.899 Other long term (current) drug therapy; Z28.21 Immunization not carried out because of patient refusal
CPT/HCPCS: 82306; 82962; 84132; 84439; 84443; 87081; 99285; G0480

== ENCOUNTER 2017-09-12 16:07 | Inpatient (IN) | payer MEDICAID ==
[~2017-09-12] VITALS: Ht 188 cm; Wt 90.8 kg
[~2017-09-12 16:07] MED LIST changes: +LISI-661 PO
[2017-09-12 16:14] VITALS: BP 130/73
[2017-09-12] MEDS ORDERED: HALOPERIDOL 5 MG TABLET PO PRN (16:30)
[2017-09-12 17:12] LABS: GLUCOSE,POINT OF CARE 270 MG/DL (70-110)
[2017-09-12] MEDS: BENZTROPINE MESYLATE 1 MG TABLET PO SCH (17:24)
[2017-09-12] MEDS ORDERED: PNEUMOCOCCAL VACCINE POLYVALENT 0.5 ML VIAL [PPSV23] IM ONE (18:00)
[2017-09-12] MEDS ORDERED: INFLUENZA VIRUS VACCINE QVS 2017-18 (3YR+)/PF 60 MCG/0.5 ML SYRINGE IM ONE (18:00)
[2017-09-12 19:09] VITALS: BP 118/80
[2017-09-12] MEDS ORDERED: GLUCAGON,HUMAN RECOMBINANT 1 MG VIAL IM PRN (20:00)
[2017-09-12] MEDS: HALOPERIDOL 10 MG TABLET PO SCH (20:57)
[2017-09-12] MEDS: INSULIN ASPART 100 UNITS/ML SQ PRN (20:59)
[2017-09-12 21:07] LABS: GLUCOSE,POINT OF CARE 270 MG/DL (70-110)
[2017-09-13 06:41] VITALS: BP 136/76
[2017-09-13 07:03] LABS: GLUCOSE,POINT OF CARE 191 MG/DL (70-110)
[2017-09-13] MEDS: INSULIN ASPART 100 UNITS/ML SQ PRN ×4 (07:10→20:25)
[2017-09-13 08:15] VITALS: BP 126/72
[2017-09-13 08:40] LABS: BASOPHILS % (AUTO) 0.3 % (0.0-2.0); EOSINOPHILS % (AUTO) 4.2 % (1.0-6.0); HEMATOCRIT 41.5 % (41-53); HEMOGLOBIN 14.4 g/dL (13.5-17.5); LYMPHOCYTES # (AUTO) 1.4 K/uL (1.0-4.8); LYMPHOCYTES % (AUTO) 26.5 % (22.0-44.0); MEAN CORPUSCULAR HGB CONC 34.8 G/dL (31.0-37.0); MEAN CORPUSCULAR VOLUME 95 fL (80-100); MONOCYTES # (AUTO) 0.5 K/uL (0.1-1.0); MONOCYTES % (AUTO) 9.4 % (2.0-9.0); NEUTROPHILS # (AUTO) 3.1 K/uL (1.8-7.7); NEUTROPHILS % (AUTO) 59.6 % (40.0-70.0); PLATELET COUNT (AUTO) 195 K/uL (150-450); RED BLOOD CELL COUNT(AUTO) 4.37 MIL/uL (4.50-5.90); RED CELL DISTRIBUTION WIDTH 12.6 % (11.5-14.5); WHITE BLOOD COUNT (AUTO) 5.2 K/uL (4.5-11.0)
[2017-09-13] MEDS ORDERED: PETROLATUM,WHITE 71 GM JELLY TP PRN (08:45)
[2017-09-13] MEDS ORDERED: BACITRACIN 28.4 GM OINTMENT TP PRN (08:45)
[2017-09-13] MEDS ORDERED: MAG HYDROX/AL HYDROX/SIMETH ES 30 ML SUSPENSION UDCUP PO PRN (08:45)
[2017-09-13] MEDS ORDERED: CloNIDine HCL 0.1 MG TABLET PO PRN (08:45)
[2017-09-13] MEDS ORDERED: ACETAMINOPHEN 325 MG TABLET PO PRN (08:45)
[2017-09-13] MEDS ORDERED: MAGNESIUM HYDROXIDE SUSPENSION 30 ML UDCUP PO PRN (08:45)
[2017-09-13] MEDS ORDERED: IBUPROFEN 600 MG TABLET PO PRN (08:45)
[2017-09-13] MEDS ORDERED: BENZOCAINE/MENTHOL LOZENGE MM PRN (08:45)
[2017-09-13] MEDS ORDERED: LOPERAMIDE HCL 2 MG CAPSULE PO PRN (08:45)
[2017-09-13] MEDS ORDERED: ALBUTEROL SULFATE HFA 90 MCG/PUFF 8 GM INHALER IH PRN (08:45)
[2017-09-13] MEDS ORDERED: ONDANSETRON HCL 4 MG TABLET PO PRN (08:45)
[2017-09-13 08:53] LABS: HEMOGLOBIN A1C 7.6 % (4.5-6.2)
[2017-09-13] MEDS: FLUoxetine HCL 20 MG CAPSULE PO SCH (09:04)
[2017-09-13] MEDS: HALOPERIDOL 5 MG TABLET PO SCH (09:04)
[2017-09-13] MEDS: BENZTROPINE MESYLATE 1 MG TABLET PO SCH ×2 (09:04→17:02)
[2017-09-13] MEDS: BACITRACIN 28.4 GM OINTMENT TP SCH ×2 (09:05→17:03)
[2017-09-13 09:33] LABS: ALANINE AMINOTRANSFERASE 20 U/L (12-78); ALBUMIN 3.1 g/dL (3.4-5.0); ANION GAP 4 mmol/L (8-16); ASPARTATE AMINOTRANSFERASE 10 U/L (15-37); BILIRUBIN,TOTAL 0.9 mg/dL (0.1-1.0); CALCIUM, TOTAL 8.6 mg/dL (8.8-10.5); CARBON DIOXIDE 32 mmol/L (22-29); CHLORIDE 105 mmol/L (98-107); CHOL/HDL RATIO 2.8 (4.2-7.3); CREATININE 0.54 mg/dL (0.60-1.30); GLOMERULAR FILTR. RATE CALC > 60 mL/min (>60); POTASSIUM 3.4 mmol/L (3.5-5.1); SODIUM SERUM 141 mmol/L (136-145); THYROID STIMULATING HORMONE 1.44 uIU/mL (0.36-3.74); TOTAL PROTEIN, SERUM 5.7 g/dL (6.4-8.2); UREA NITROGEN, BLOOD 8 mg/dL (7-18)
[2017-09-13 09:34] LABS: APPEARANCE,URINE CLEAR (CLEAR); GLUCOSE, URINE (UA) >=1000 mg/dL (NEGATIVE); KETONES,URINE NEGATIVE (NEGATIVE); LEUKOCYTE ESTERASE ,URINE NEGATIVE (NEGATIVE); OCCULT BLOOD,URINE NEGATIVE (NEGATIVE); PROTEIN,URINE NEGATIVE (NEGATIVE)
[2017-09-13] MEDS: CHOLECALCIFEROL (VIT D3) 1,000 UNITS TABLET PO SCH (09:47)
[2017-09-13] MEDS: GABAPENTIN 300 MG CAPSULE PO SCH ×3 (09:47→17:02)
[2017-09-13] MEDS: LISINOPRIL 10 MG TABLET PO SCH (09:48)
[2017-09-13 10:42] LABS: ADD UA MICROSCOPIC YES
[2017-09-13 10:44] LABS: RBC,URINE None Seen /HPF (0-2); WBC,URINE None Seen /HPF (0-5)
[2017-09-13 11:17] LABS: GLUCOSE,POINT OF CARE 179 MG/DL (70-110)
[2017-09-13] MEDS: MAGNESIUM SULFATE 454 GM BOX TP SCH (13:06)
[2017-09-13] MEDS: TERBINAFINE HCL 1% 30 GM CREAM TP SCH (13:07)
[2017-09-13 16:38] VITALS: BP 120/70
[2017-09-13] MEDS: MetFORMIN HCL 500 MG TABLET PO SCH (17:02)
[2017-09-13 17:12] LABS: GLUCOSE,POINT OF CARE 147 MG/DL (70-110)
[2017-09-13] MEDS: HALOPERIDOL 10 MG TABLET PO SCH (20:23)
[2017-09-13 20:33] LABS: GLUCOSE,POINT OF CARE 215 MG/DL (70-110)
[2017-09-14 06:16] VITALS: BP 139/79
[2017-09-14] MEDS: MetFORMIN HCL 500 MG TABLET PO SCH ×2 (07:01→16:21)
[2017-09-14] MEDS: INSULIN ASPART 100 UNITS/ML SQ PRN ×4 (07:05→20:22)
[2017-09-14 07:12] LABS: GLUCOSE,POINT OF CARE 184 MG/DL (70-110)
[2017-09-14 09:03] VITALS: BP 119/76
[2017-09-14] MEDS: LISINOPRIL 10 MG TABLET PO SCH (09:38)
[2017-09-14] MEDS: CHOLECALCIFEROL (VIT D3) 1,000 UNITS TABLET PO SCH (09:38)
[2017-09-14] MEDS: HALOPERIDOL 5 MG TABLET PO SCH (09:38)
[2017-09-14] MEDS: BENZTROPINE MESYLATE 1 MG TABLET PO SCH ×2 (09:38→16:21)
[2017-09-14] MEDS: LORazepam 2 MG TABLET PO PRN ×2 (09:38→16:21)
[2017-09-14] MEDS: FLUoxetine HCL 20 MG CAPSULE PO SCH (09:38)
[2017-09-14] MEDS: GABAPENTIN 300 MG CAPSULE PO SCH ×3 (09:38→16:21)
[2017-09-14] MEDS: MAGNESIUM SULFATE 454 GM BOX TP SCH (09:39)
[2017-09-14] MEDS: BACITRACIN 28.4 GM OINTMENT TP SCH ×2 (09:39→17:01)
[2017-09-14] MEDS: TERBINAFINE HCL 1% 30 GM CREAM TP SCH (09:39)
[2017-09-14 11:28] LABS: GLUCOSE,POINT OF CARE 199 MG/DL (70-110)
[2017-09-14 16:09] VITALS: BP 131/69
[2017-09-14 16:47] LABS: GLUCOSE COMMENT 1 Received Meds; GLUCOSE,POINT OF CARE 230 MG/DL (70-110)
[2017-09-14] MEDS: HALOPERIDOL 10 MG TABLET PO SCH (20:15)
[2017-09-14 20:27] LABS: GLUCOSE,POINT OF CARE 257 MG/DL (70-110)
[2017-09-15 04:21] VITALS: BP 138/77
[2017-09-15 06:22] LABS: GLUCOSE,POINT OF CARE 189 MG/DL (70-110)
[2017-09-15] MEDS: MetFORMIN HCL 500 MG TABLET PO SCH ×2 (06:35→16:24)
[2017-09-15] MEDS: INSULIN ASPART 100 UNITS/ML SQ PRN ×4 (07:00→21:02)
[2017-09-15 08:37] VITALS: BP 121/89
[2017-09-15] MEDS: BENZTROPINE MESYLATE 1 MG TABLET PO SCH ×2 (08:53→16:24)
[2017-09-15] MEDS: MAGNESIUM SULFATE 454 GM BOX TP SCH (08:53)
[2017-09-15] MEDS: BACITRACIN 28.4 GM OINTMENT TP SCH ×2 (08:53→16:26)
[2017-09-15] MEDS: GABAPENTIN 300 MG CAPSULE PO SCH ×3 (08:53→16:24)
[2017-09-15] MEDS: FLUoxetine HCL 20 MG CAPSULE PO SCH (08:53)
[2017-09-15] MEDS: CHOLECALCIFEROL (VIT D3) 1,000 UNITS TABLET PO SCH (08:53)
[2017-09-15] MEDS: HALOPERIDOL 5 MG TABLET PO SCH (08:53)
[2017-09-15] MEDS: LISINOPRIL 10 MG TABLET PO SCH (08:53)
[2017-09-15] MEDS: TERBINAFINE HCL 1% 30 GM CREAM TP SCH (08:54)
[2017-09-15] MEDS: LORazepam 2 MG TABLET PO PRN (12:30)
[2017-09-15 14:37] LABS: GLUCOSE,POINT OF CARE 216 MG/DL (70-110)
[2017-09-15 16:35] VITALS: BP 122/73
[2017-09-15 16:54] LABS: GLUCOSE,POINT OF CARE 186 MG/DL (70-110)
[2017-09-15 20:42] LABS: GLUCOSE,POINT OF CARE 191 MG/DL (70-110)
[2017-09-15] MEDS: HALOPERIDOL 10 MG TABLET PO SCH (21:01)
[2017-09-16 01:49] VITALS: BP 105/67
[2017-09-16] MEDS: MetFORMIN HCL 500 MG TABLET PO SCH ×2 (07:10→16:16)
[2017-09-16 07:37] LABS: GLUCOSE,POINT OF CARE 240 MG/DL (70-110)
[2017-09-16] MEDS: INSULIN ASPART 100 UNITS/ML SQ PRN ×3 (07:38→21:28)
[2017-09-16] MEDS: BENZTROPINE MESYLATE 1 MG TABLET PO SCH ×2 (08:08→16:16)
[2017-09-16] MEDS: GABAPENTIN 300 MG CAPSULE PO SCH ×3 (08:08→16:16)
[2017-09-16] MEDS: HALOPERIDOL 5 MG TABLET PO SCH (08:08)
[2017-09-16] MEDS: LISINOPRIL 10 MG TABLET PO SCH (08:08)
[2017-09-16] MEDS: CHOLECALCIFEROL (VIT D3) 1,000 UNITS TABLET PO SCH (08:08)
[2017-09-16] MEDS: FLUoxetine HCL 20 MG CAPSULE PO SCH (08:08)
[2017-09-16 08:30] VITALS: BP 127/75
[2017-09-16] MEDS: MAGNESIUM SULFATE 454 GM BOX TP SCH (09:02)
[2017-09-16] MEDS: TERBINAFINE HCL 1% 30 GM CREAM TP SCH (09:02)
[2017-09-16] MEDS: BACITRACIN 28.4 GM OINTMENT TP SCH ×2 (09:03→16:17)
[2017-09-16 11:03] LABS: GLUCOSE,POINT OF CARE 138 MG/DL (70-110)
[2017-09-16 16:04] VITALS: BP 129/66
[2017-09-16 16:43] LABS: GLUCOSE,POINT OF CARE 159 MG/DL (70-110)
[2017-09-16 20:17] LABS: GLUCOSE,POINT OF CARE 211 MG/DL (70-110)
[2017-09-16] MEDS: HALOPERIDOL 10 MG TABLET PO SCH (21:11)
[2017-09-17 00:01] VITALS: BP 124/78
[2017-09-17] MEDS: INSULIN ASPART 100 UNITS/ML SQ PRN ×3 (06:37→21:19)
[2017-09-17 06:48] LABS: GLUCOSE,POINT OF CARE 192 MG/DL (70-110)
[2017-09-17] MEDS: MetFORMIN HCL 500 MG TABLET PO SCH ×2 (07:03→16:44)
[2017-09-17 08:11] VITALS: BP 120/68
[2017-09-17] MEDS: LISINOPRIL 10 MG TABLET PO SCH (08:17)
[2017-09-17] MEDS: FLUoxetine HCL 20 MG CAPSULE PO SCH (08:17)
[2017-09-17] MEDS: HALOPERIDOL 5 MG TABLET PO SCH (08:17)
[2017-09-17] MEDS: GABAPENTIN 300 MG CAPSULE PO SCH ×3 (08:17→16:44)
[2017-09-17] MEDS: BENZTROPINE MESYLATE 1 MG TABLET PO SCH ×2 (08:17→16:44)
[2017-09-17] MEDS: CHOLECALCIFEROL (VIT D3) 1,000 UNITS TABLET PO SCH (08:17)
[2017-09-17] MEDS: TERBINAFINE HCL 1% 30 GM CREAM TP SCH (08:18)
[2017-09-17] MEDS: MAGNESIUM SULFATE 454 GM BOX TP SCH (08:18)
[2017-09-17] MEDS: BACITRACIN 28.4 GM OINTMENT TP SCH ×2 (08:18→16:44)
[2017-09-17 11:12] LABS: GLUCOSE,POINT OF CARE 132 MG/DL (70-110)
[2017-09-17 13:00] VITALS: BP 116/68
[2017-09-17 16:15] VITALS: BP 106/65
[2017-09-17 16:43] LABS: GLUCOSE,POINT OF CARE 273 MG/DL (70-110)
[2017-09-17] MEDS: HALOPERIDOL 10 MG TABLET PO SCH (20:26)
[2017-09-17 21:55] LABS: GLUCOSE,POINT OF CARE 192 MG/DL (70-110)
[2017-09-17] MEDS: ZOLPIDEM TARTRATE 10 MG TABLET PO PRN (21:56)
[2017-09-18 04:43] VITALS: BP 109/74
[2017-09-18] MEDS: INSULIN ASPART 100 UNITS/ML SQ PRN ×4 (06:45→20:12)
[2017-09-18] MEDS: MetFORMIN HCL 500 MG TABLET PO SCH ×2 (06:52→16:59)
[2017-09-18 07:42] LABS: GLUCOSE,POINT OF CARE 182 MG/DL (70-110)
[2017-09-18 08:30] VITALS: BP 135/78
[2017-09-18] MEDS: HALOPERIDOL 5 MG TABLET PO SCH (09:12)
[2017-09-18] MEDS: CHOLECALCIFEROL (VIT D3) 1,000 UNITS TABLET PO SCH (09:13)
[2017-09-18] MEDS: LISINOPRIL 10 MG TABLET PO SCH (09:13)
[2017-09-18] MEDS: GABAPENTIN 300 MG CAPSULE PO SCH ×3 (09:13→16:59)
[2017-09-18] MEDS: FLUoxetine HCL 20 MG CAPSULE PO SCH (09:13)
[2017-09-18] MEDS: BENZTROPINE MESYLATE 1 MG TABLET PO SCH ×2 (09:13→16:59)
[2017-09-18] MEDS: BACITRACIN 28.4 GM OINTMENT TP SCH ×2 (09:14→16:59)
[2017-09-18] MEDS: MAGNESIUM SULFATE 454 GM BOX TP SCH (09:14)
[2017-09-18] MEDS: TERBINAFINE HCL 1% 30 GM CREAM TP SCH (09:14)
[2017-09-18 11:03] LABS: GLUCOSE,POINT OF CARE 156 MG/DL (70-110)
[2017-09-18 16:11] VITALS: BP 101/63
[2017-09-18 17:08] LABS: GLUCOSE,POINT OF CARE 168 MG/DL (70-110)
[2017-09-18] MEDS: HALOPERIDOL 10 MG TABLET PO SCH (20:11)
[2017-09-18 20:17] LABS: GLUCOSE,POINT OF CARE 203 MG/DL (70-110)
[2017-09-19 02:15] VITALS: BP 130/72
[2017-09-19 06:08] LABS: GLUCOSE,POINT OF CARE 199 MG/DL (70-110)
[2017-09-19] MEDS: INSULIN ASPART 100 UNITS/ML SQ PRN ×4 (06:08→20:30)
[2017-09-19] MEDS: MetFORMIN HCL 500 MG TABLET PO SCH ×2 (06:41→16:49)
[2017-09-19] MEDS: CHOLECALCIFEROL (VIT D3) 1,000 UNITS TABLET PO SCH (08:13)
[2017-09-19] MEDS: HALOPERIDOL 5 MG TABLET PO SCH (08:13)
[2017-09-19] MEDS: GABAPENTIN 300 MG CAPSULE PO SCH ×3 (08:13→16:49)
[2017-09-19] MEDS: LISINOPRIL 10 MG TABLET PO SCH (08:13)
[2017-09-19] MEDS: BENZTROPINE MESYLATE 1 MG TABLET PO SCH ×2 (08:13→16:49)
[2017-09-19] MEDS: FLUoxetine HCL 20 MG CAPSULE PO SCH (08:13)
[2017-09-19] MEDS: TERBINAFINE HCL 1% 30 GM CREAM TP SCH (08:14)
[2017-09-19] MEDS: BACITRACIN 28.4 GM OINTMENT TP SCH ×2 (08:14→16:49)
[2017-09-19 08:39] VITALS: BP 129/77
[2017-09-19 11:20] LABS: GLUCOSE COMMENT 1 Received Meds; GLUCOSE,POINT OF CARE 145 MG/DL (70-110)
[2017-09-19 16:55] LABS: GLUCOSE,POINT OF CARE 220 MG/DL (70-110)
[2017-09-19 17:25] VITALS: BP 100/65
[2017-09-19] MEDS: HALOPERIDOL 10 MG TABLET PO SCH (20:30)
[2017-09-19 21:20] LABS: GLUCOSE,POINT OF CARE 247 MG/DL (70-110)
[2017-09-19] MEDS: ZOLPIDEM TARTRATE 10 MG TABLET PO PRN (22:43)
[2017-09-20 01:05] VITALS: BP 119/78
[2017-09-20 06:38] LABS: GLUCOSE,POINT OF CARE 170 MG/DL (70-110)
[2017-09-20] MEDS: INSULIN ASPART 100 UNITS/ML SQ PRN ×2 (06:38→11:04)
[2017-09-20] MEDS: MetFORMIN HCL 500 MG TABLET PO SCH (07:11)
[2017-09-20] MEDS: GABAPENTIN 300 MG CAPSULE PO SCH ×2 (08:38→12:31)
[2017-09-20] MEDS: HALOPERIDOL 5 MG TABLET PO SCH (08:38)
[2017-09-20] MEDS: CHOLECALCIFEROL (VIT D3) 1,000 UNITS TABLET PO SCH (08:38)
[2017-09-20] MEDS: FLUoxetine HCL 20 MG CAPSULE PO SCH (08:38)
[2017-09-20] MEDS: BENZTROPINE MESYLATE 1 MG TABLET PO SCH (08:38)
[2017-09-20] MEDS: LISINOPRIL 10 MG TABLET PO SCH (08:38)
[2017-09-20 08:42] VITALS: BP 121/76
[2017-09-20] MEDS: TERBINAFINE HCL 1% 30 GM CREAM TP SCH (09:06)
[2017-09-20] MEDS: BACITRACIN 28.4 GM OINTMENT TP SCH (09:06)
[2017-09-20 11:03] LABS: GLUCOSE COMMENT 1 Received Meds; GLUCOSE,POINT OF CARE 164 MG/DL (70-110)
== END 2017-09-20 14:00 | disposition home or self-care (01) | DRG 750 ==
LOC: B2S 16:23
DX: F25.1 Schizoaffective disorder, depressive type (principal); E11.42 Type 2 diabetes mellitus with diabetic polyneuropathy; R45.851 Suicidal ideations; I10 Essential (primary) hypertension; K59.00 Constipation, unspecified; E55.9 Vitamin D deficiency, unspecified; E11.65 Type 2 diabetes mellitus with hyperglycemia; B35.3 Tinea pedis; G47.00 Insomnia, unspecified; Z59.0 Homelessness
CPT/HCPCS: 80307; 82962; 83036; 84132; 84439; 84443; 87081

== ENCOUNTER 2018-07-13 15:00 | Emergency (ER) | payer MEDICAID, OTHER ==
[~2018-07-13] VITALS: Ht 188 cm; Wt 95.4 kg
[~2018-07-13 15:00] MED LIST changes: -HALO5 PO; +HALO5TAB2 PO; +METF-960 PO; -METF500T4 PO
[2018-07-13] MEDS ORDERED: PROZ10 PO (15:25)
[2018-07-13 15:27] VITALS: BP 120/94
[2018-07-13 15:44] LABS: GLUCOSE,POINT OF CARE 343 MG/DL (70-110)
[2018-07-13 16:18] LABS: AMPHET/METH SCREEN,URINE NEGATIVE (NEGATIVE); BARBITURATE SCREEN, URINE NEGATIVE (NEGATIVE); BENZODIAZEPINES SCREEN,URINE NEGATIVE (NEGATIVE); CANNABINOID SCREEN,URINE NEGATIVE (NEGATIVE); COCAINE SCREEN,URINE NEGATIVE (NEGATIVE); METHADONE SCREEN, URINE NEGATIVE (NEGATIVE); OPIATE SCREEN,URINE NEGATIVE (NEGATIVE)
[2018-07-13 16:20] LABS: BASOPHILS % (AUTO) 0.5 % (0.0-2.0); HEMATOCRIT 49.7 % (41-53); HEMOGLOBIN 17.6 g/dL (13.5-17.5); LYMPHOCYTES # (AUTO) 1.6 K/uL (1.0-4.8); LYMPHOCYTES % (AUTO) 26.5 % (22.0-44.0); MEAN CORPUSCULAR HEMOGLOBIN 33.1 pg (26.0-34.0); MEAN CORPUSCULAR HGB CONC 35.4 G/dL (31.0-37.0); MEAN CORPUSCULAR VOLUME 93 fL (80-100); MONOCYTES # (AUTO) 0.4 K/uL (0.1-1.0); MONOCYTES % (AUTO) 6.5 % (2.0-9.0); NEUTROPHILS # (AUTO) 3.8 K/uL (1.8-7.7); NEUTROPHILS % (AUTO) 61.5 % (40.0-70.0); PLATELET COUNT (AUTO) 208 K/uL (150-450); RED BLOOD CELL COUNT(AUTO) 5.32 MIL/uL (4.50-5.90); RED CELL DISTRIBUTION WIDTH 13.3 % (11.5-14.5)
[2018-07-13 16:23] LABS: PHENCYCLIDINE SCREEN,URINE NEGATIVE (NEGATIVE)
[2018-07-13 16:30] LABS: ANION GAP 9 mmol/L (8-16); CALCIUM, TOTAL 8.7 mg/dL (8.8-10.5); CARBON DIOXIDE 27 mmol/L (22-29); CHLORIDE 101 mmol/L (98-107); GLOMERULAR FILTR. RATE CALC > 60 mL/min (>60); GLUCOSE,RANDOM 301 mg/dL (70-110); POTASSIUM 4.2 mmol/L (3.5-5.1); SODIUM SERUM 137 mmol/L (136-145); UREA NITROGEN, BLOOD 11 mg/dL (7-18)
[2018-07-13 16:35] LABS: ALANINE AMINOTRANSFERASE 38 U/L (12-78); ALBUMIN 3.5 g/dL (3.4-5.0); ALKALINE PHOSPHATASE 96 U/L (46-116); ASPARTATE AMINOTRANSFERASE 19 U/L (15-37); BILIRUBIN,TOTAL 0.8 mg/dL (0.1-1.0); TOTAL PROTEIN, SERUM 7.1 g/dL (6.4-8.2)
== END 2018-07-13 17:27 | disposition home or self-care (01) ==
LOC: EMS 15:01
DX: F20.9 Schizophrenia, unspecified (principal); E11.65 Type 2 diabetes mellitus with hyperglycemia; Z59.0 Homelessness; Z79.84 Long term (current) use of oral hypoglycemic drugs
CPT/HCPCS: 36415; 80053; 80307; 82962; 85025; 99284; G0480

== ENCOUNTER 2018-11-09 20:41 | Emergency (ER) | payer OTHER ==
[~2018-11-09] VITALS: Ht 190.5 cm; Wt 113.6 kg
[~2018-11-09 20:41] MED LIST changes: -HALO10 PO; +PROZ10 PO
[2018-11-09 22:34] LABS: BASOPHILS % (AUTO) 0.4 % (0.0-2.0); EOSINOPHILS % (AUTO) 2.4 % (1.0-6.0); HEMATOCRIT 46.1 % (41-53); HEMOGLOBIN 16.3 g/dL (13.5-17.5); LYMPHOCYTES # (AUTO) 1.3 K/uL (1.0-4.8); LYMPHOCYTES % (AUTO) 14.4 % (22.0-44.0); MEAN CORPUSCULAR HEMOGLOBIN 32.2 pg (26.0-34.0); MEAN CORPUSCULAR HGB CONC 35.3 G/dL (31.0-37.0); MEAN CORPUSCULAR VOLUME 92 fL (80-100); MONOCYTES # (AUTO) 0.5 K/uL (0.1-1.0); MONOCYTES % (AUTO) 5.7 % (2.0-9.0); NEUTROPHILS # (AUTO) 6.8 K/uL (1.8-7.7); NEUTROPHILS % (AUTO) 77.1 % (40.0-70.0); PLATELET COUNT (AUTO) 214 K/uL (150-450); RED BLOOD CELL COUNT(AUTO) 5.04 MIL/uL (4.50-5.90); RED CELL DISTRIBUTION WIDTH 12.8 % (11.5-14.5)
[2018-11-09 22:45] LABS: ANION GAP 7 mmol/L (8-16); CALCIUM, TOTAL 9.4 mg/dL (8.8-10.5); CARBON DIOXIDE 31 mmol/L (22-29); CHLORIDE 100 mmol/L (98-107); CREATININE 0.87 mg/dL (0.60-1.30); GLOMERULAR FILTR. RATE CALC > 60 mL/min (>60); GLUCOSE,RANDOM 190 mg/dL (70-110); POTASSIUM 4.6 mmol/L (3.5-5.1); SODIUM SERUM 138 mmol/L (136-145); UREA NITROGEN, BLOOD 8 mg/dL (7-18)
[2018-11-09 22:53] LABS: ALANINE AMINOTRANSFERASE 21 U/L (12-78); ALBUMIN 3.8 g/dL (3.4-5.0); ALKALINE PHOSPHATASE 89 U/L (46-116); ASPARTATE AMINOTRANSFERASE 12 U/L (15-37); BILIRUBIN,TOTAL 1.1 mg/dL (0.1-1.0); TOTAL PROTEIN, SERUM 7.1 g/dL (6.4-8.2)
[2018-11-10 07:31] VITALS: BP 124/75
[2018-11-10 07:34] LABS: GLUCOSE,POINT OF CARE 168 MG/DL (70-110)
[2018-11-10 08:31] LABS: AMPHET/METH SCREEN,URINE NEGATIVE (NEGATIVE); BARBITURATE SCREEN, URINE NEGATIVE (NEGATIVE); BENZODIAZEPINES SCREEN,URINE NEGATIVE (NEGATIVE); CANNABINOID SCREEN,URINE NEGATIVE (NEGATIVE); COCAINE SCREEN,URINE NEGATIVE (NEGATIVE); METHADONE SCREEN, URINE NEGATIVE (NEGATIVE); OPIATE SCREEN,URINE NEGATIVE (NEGATIVE)
[2018-11-10 08:32] LABS: PHENCYCLIDINE SCREEN,URINE NEGATIVE (NEGATIVE)
[2018-11-10 08:41] LABS: GLUCOSE, URINE (UA) NEGATIVE (NEGATIVE); KETONES,URINE TRACE mg/dL (NEGATIVE); LEUKOCYTE ESTERASE ,URINE TRACE (NEGATIVE); NITRATE,URINE NEGATIVE (NEGATIVE); OCCULT BLOOD,URINE NEGATIVE (NEGATIVE); PROTEIN,URINE TRACE (NEGATIVE); UROBILINOGEN,URINE 0.2 mg/dL (<=1.0)
[2018-11-10 08:42] LABS: APPEARANCE,URINE SLIGHTLY CLOUDY (CLEAR); BILIRUBIN,URINE PRELIM. POSITIVE (NEGATIVE)
[2018-11-10 08:55] LABS: BACTERIA,URINE Few /HPF (None Seen); RBC,URINE 0-2 /HPF (0-2); WBC,URINE 0-2 /HPF (0-5)
== END 2018-11-10 09:23 | disposition home or self-care (01) ==
LOC: EMS 20:42
DX: F32.9 Major depressive disorder, single episode, unspecified (principal); F20.9 Schizophrenia, unspecified; E11.9 Type 2 diabetes mellitus without complications
CPT/HCPCS: 36415; 80053; 80307; 81001; 82962; 85025; 99285; G0480

== ENCOUNTER 2019-05-19 12:38 | Emergency (ER) | payer OTHER ==
[~2019-05-19] VITALS: Ht 190.5 cm; Wt 97.7 kg
[~2019-05-19 12:38] MED LIST changes: -PROZ10 PO
[2019-05-19] MEDS ORDERED: LISINOPRIL 10 MG TABLET PO ONE (13:45)
[2019-05-19 14:23] VITALS: BP 153/108
== END 2019-05-19 14:30 | disposition home or self-care (01) ==
LOC: EMS 12:38
DX: F20.9 Schizophrenia, unspecified (principal); I10 Essential (primary) hypertension; E11.9 Type 2 diabetes mellitus without complications; Z59.0 Homelessness; Z79.899 Other long term (current) drug therapy; Z79.84 Long term (current) use of oral hypoglycemic drugs

== ENCOUNTER 2019-09-03 17:58 | Emergency (ER) | payer OTHER ==
[~2019-09-03] VITALS: Ht 190.5 cm; Wt 90.9 kg
[2019-09-03 19:29] LABS: GLUCOSE,POINT OF CARE 218 MG/DL (70-110)
[2019-09-03 20:11] LABS: BASOPHILS % (AUTO) 0.7 % (0.0-2.0); EOSINOPHILS % (AUTO) 4.9 % (1.0-6.0); HEMOGLOBIN 15.1 g/dL (13.5-17.5); LYMPHOCYTES # (AUTO) 1.7 K/uL (1.0-4.8); LYMPHOCYTES % (AUTO) 26.8 % (22.0-44.0); MEAN CORPUSCULAR HGB CONC 34.2 G/dL (31.0-37.0); MEAN CORPUSCULAR VOLUME 93 fL (80-100); MONOCYTES # (AUTO) 0.5 K/uL (0.1-1.0); MONOCYTES % (AUTO) 8.7 % (2.0-9.0); NEUTROPHILS # (AUTO) 3.6 K/uL (1.8-7.7); NEUTROPHILS % (AUTO) 58.9 % (40.0-70.0); PLATELET COUNT (AUTO) 235 K/uL (150-450); RED BLOOD CELL COUNT(AUTO) 4.71 MIL/uL (4.50-5.90); RED CELL DISTRIBUTION WIDTH 12.7 % (11.5-14.5)
[2019-09-03 20:26] LABS: ANION GAP 8 mmol/L (8-16); CALCIUM, TOTAL 8.4 mg/dL (8.8-10.5); CARBON DIOXIDE 29 mmol/L (22-29); CHLORIDE 101 mmol/L (98-107); CREATININE 0.64 mg/dL (0.60-1.30); GLOMERULAR FILTR. RATE CALC > 60 mL/min (>60); GLUCOSE,RANDOM 223 mg/dL (70-110); POTASSIUM 3.5 mmol/L (3.5-5.1); SODIUM SERUM 138 mmol/L (136-145); UREA NITROGEN, BLOOD 11 mg/dL (7-18)
[2019-09-03 20:35] LABS: ALANINE AMINOTRANSFERASE 22 U/L (12-78); ALBUMIN 3.4 g/dL (3.4-5.0); ALKALINE PHOSPHATASE 91 U/L (46-116); ASPARTATE AMINOTRANSFERASE 17 U/L (15-37); BILIRUBIN,TOTAL 1.1 mg/dL (0.1-1.0); TOTAL PROTEIN, SERUM 6.8 g/dL (6.4-8.2)
[2019-09-03 20:46] LABS: AMPHET/METH SCREEN,URINE NEGATIVE (NEGATIVE); BARBITURATE SCREEN, URINE NEGATIVE (NEGATIVE); BENZODIAZEPINES SCREEN,URINE NEGATIVE (NEGATIVE); CANNABINOID SCREEN,URINE NEGATIVE (NEGATIVE); COCAINE SCREEN,URINE NEGATIVE (NEGATIVE); METHADONE SCREEN, URINE NEGATIVE (NEGATIVE); OPIATE SCREEN,URINE NEGATIVE (NEGATIVE)
[2019-09-03 20:47] LABS: PHENCYCLIDINE SCREEN,URINE NEGATIVE (NEGATIVE)
[2019-09-03 21:45] VITALS: BP 132/80
== END 2019-09-03 22:13 | disposition home or self-care (01) ==
LOC: EMS 17:59
DX: F20.9 Schizophrenia, unspecified (principal); E11.9 Type 2 diabetes mellitus without complications; I10 Essential (primary) hypertension; Z59.0 Homelessness; Z79.84 Long term (current) use of oral hypoglycemic drugs; Z79.899 Other long term (current) drug therapy
CPT/HCPCS: 36415; 80053; 80307; 82962; 85025; 99285; G0480

== ENCOUNTER 2019-09-16 09:01 | Emergency (ER) | payer OTHER ==
[~2019-09-16] VITALS: Ht 190.5 cm; Wt 90.9 kg
[2019-09-16 09:59] LABS: AMPHET/METH SCREEN,URINE NEGATIVE (NEGATIVE); BARBITURATE SCREEN, URINE NEGATIVE (NEGATIVE); BENZODIAZEPINES SCREEN,URINE NEGATIVE (NEGATIVE); CANNABINOID SCREEN,URINE NEGATIVE (NEGATIVE); COCAINE SCREEN,URINE NEGATIVE (NEGATIVE); METHADONE SCREEN, URINE NEGATIVE (NEGATIVE); OPIATE SCREEN,URINE NEGATIVE (NEGATIVE)
[2019-09-16 10:05] LABS: PHENCYCLIDINE SCREEN,URINE NEGATIVE (NEGATIVE)
[2019-09-16 13:23] VITALS: BP 143/85
== END 2019-09-16 14:39 | disposition home or self-care (01) ==
LOC: EMS 09:02
DX: R45.851 Suicidal ideations (principal); E11.9 Type 2 diabetes mellitus without complications; I10 Essential (primary) hypertension; F20.9 Schizophrenia, unspecified; Z59.0 Homelessness; Z79.84 Long term (current) use of oral hypoglycemic drugs; Z79.899 Other long term (current) drug therapy

== ENCOUNTER 2020-01-11 17:22 | Inpatient (IN) | payer MEDICAID, OTHER ==
[~2020-01-11] VITALS: Ht 190.5 cm; Wt 91.2 kg
[~2020-01-11 17:22] MED LIST changes: -FLUO-191 PO; +GLIP5 PO; +RISP3 PO
[2020-01-11 18:18] LABS: GLUCOSE,POINT OF CARE 328 MG/DL (70-110)
[2020-01-11 18:20] LABS: BASOPHILS % (AUTO) 0.6 % (0.0-2.0); EOSINOPHILS % (AUTO) 4.3 % (1.0-6.0); HEMATOCRIT 51.4 % (41-53); HEMOGLOBIN 17.7 g/dL (13.5-17.5); LYMPHOCYTES % (AUTO) 22.6 % (22.0-44.0); MEAN CORPUSCULAR HEMOGLOBIN 31.8 pg (26.0-34.0); MEAN CORPUSCULAR HGB CONC 34.5 G/dL (31.0-37.0); MEAN CORPUSCULAR VOLUME 92 fL (80-100); MONOCYTES # (AUTO) 0.8 K/uL (0.1-1.0); MONOCYTES % (AUTO) 9.1 % (2.0-9.0); NEUTROPHILS # (AUTO) 5.6 K/uL (1.8-7.7); NEUTROPHILS % (AUTO) 63.4 % (40.0-70.0); PLATELET COUNT (AUTO) 242 K/uL (150-450); RED BLOOD CELL COUNT(AUTO) 5.58 MIL/uL (4.50-5.90); RED CELL DISTRIBUTION WIDTH 13.9 % (11.5-14.5)
[2020-01-11 18:28] LABS: ANION GAP 7 mmol/L (8-16); CALCIUM, TOTAL 8.8 mg/dL (8.8-10.5); CARBON DIOXIDE 30 mmol/L (22-29); CHLORIDE 96 mmol/L (98-107); GLOMERULAR FILTR. RATE CALC > 60 mL/min (>60); GLUCOSE,RANDOM 316 mg/dL (70-110); POTASSIUM 3.8 mmol/L (3.5-5.1); SODIUM SERUM 133 mmol/L (136-145); UREA NITROGEN, BLOOD 16 mg/dL (7-18)
[2020-01-11] MEDS ORDERED: HALOPERIDOL 5 MG TABLET PO PRN (18:30)
[2020-01-11] MEDS ORDERED: ZOLPIDEM TARTRATE 10 MG TABLET PO PRN (18:30)
[2020-01-11 18:34] LABS: ALANINE AMINOTRANSFERASE 22 U/L (12-78); ALBUMIN 4.1 g/dL (3.4-5.0); ALKALINE PHOSPHATASE 146 U/L (46-116); ASPARTATE AMINOTRANSFERASE 8 U/L (15-37); BILIRUBIN,TOTAL 0.7 mg/dL (0.1-1.0); TOTAL PROTEIN, SERUM 8.2 g/dL (6.4-8.2)
[2020-01-11] MEDS ORDERED: SEMA0.25 SQ (18:34)
[2020-01-11] MEDS ORDERED: SIMV-46 PO (18:34)
[2020-01-11 18:49] LABS: AMPHET/METH SCREEN,URINE NEGATIVE (NEGATIVE); BARBITURATE SCREEN, URINE NEGATIVE (NEGATIVE); BENZODIAZEPINES SCREEN,URINE NEGATIVE (NEGATIVE); CANNABINOID SCREEN,URINE NEGATIVE (NEGATIVE); COCAINE SCREEN,URINE NEGATIVE (NEGATIVE); METHADONE SCREEN, URINE NEGATIVE (NEGATIVE); OPIATE SCREEN,URINE NEGATIVE (NEGATIVE)
[2020-01-11 18:56] LABS: PHENCYCLIDINE SCREEN,URINE NEGATIVE (NEGATIVE)
[2020-01-11] MEDS ORDERED: INSULIN REGULAR, HUMAN 100 UNITS/ML SQ ONE ×2 (20:30)
[2020-01-11] MEDS: LORazepam 2 MG TABLET PO PRN (20:47)
[2020-01-11 20:59] LABS: GLUCOSE,POINT OF CARE 374 MG/DL (70-110)
[2020-01-11 21:47] VITALS: BP 132/101
[2020-01-11 22:13] VITALS: BP 132/101
[2020-01-11] MEDS ORDERED: DEXTROSE 50%-WATER 25 GM/50 ML SYRINGE IVP PRN (23:15)
[2020-01-12 04:53] VITALS: BP 163/119
[2020-01-12] MEDS: LORazepam 2 MG TABLET PO PRN ×2 (04:58→21:01)
[2020-01-12 05:35] LABS: GLUCOMETER DEV NAME(LOC) 3E.I 2; GLUCOSE,POINT OF CARE 343 MG/DL (70-110)
[2020-01-12] MEDS: GlipiZIDE 5 MG TABLET PO SCH (06:55)
[2020-01-12] MEDS: MetFORMIN HCL 500 MG TABLET PO SCH (06:55)
[2020-01-12] MEDS: INSULIN LISPRO 100 UNITS/ML SQ PRN ×2 (07:06→17:24)
[2020-01-12] MEDS: LISINOPRIL 10 MG TABLET PO SCH (08:22)
[2020-01-12 08:45] LABS: CHOL/HDL RATIO 4.1 (4.2-7.3); FREE T4 (FREE THYROXINE) 1.23 ng/dL (0.76-1.46); THYROID STIMULATING HORMONE 2.24 uIU/mL (0.36-3.74)
[2020-01-12 10:38] VITALS: BP 152/102
[2020-01-12] MEDS ORDERED: ONDANSETRON HCL 4 MG TABLET PO PRN (12:15)
[2020-01-12] MEDS ORDERED: ONDANSETRON HCL 4 MG/2 ML VIAL IM ONE (13:15)
[2020-01-12] MEDS ORDERED: PETROLATUM,WHITE 28 GM JELLY TP PRN (15:30)
[2020-01-12] MEDS ORDERED: LOPERAMIDE HCL 2 MG CAPSULE PO PRN (15:30)
[2020-01-12] MEDS ORDERED: ALBUTEROL SULFATE HFA 90 MCG/PUFF 8 GM INHALER IH PRN (15:30)
[2020-01-12] MEDS ORDERED: IBUPROFEN 400 MG TABLET PO PRN (15:30)
[2020-01-12] MEDS ORDERED: MAGNESIUM HYDROXIDE SUSPENSION 30 ML UDCUP PO PRN (15:30)
[2020-01-12] MEDS ORDERED: GuaiFENesin/D-METHORPHAN [SUGAR-FREE] 200-20MG/10 ML SYRUP UDCUP PO PRN (15:30)
[2020-01-12] MEDS ORDERED: ACETAMINOPHEN 325 MG TABLET PO PRN (15:30)
[2020-01-12] MEDS ORDERED: MAG HYDROX/AL HYDROX/SIMETH ES 30 ML SUSPENSION UDCUP PO PRN (15:30)
[2020-01-12] MEDS ORDERED: NICOTINE 14 MG/24 HOUR PATCH TD PRN (15:30)
[2020-01-12] MEDS ORDERED: CloNIDine HCL 0.1 MG TABLET PO PRN (15:30)
[2020-01-12] MEDS ORDERED: DOCUSATE SODIUM 100 MG CAPSULE PO PRN (15:30)
[2020-01-12] MEDS: RisperiDONE 3 MG TABLET PO SCH (16:14)
[2020-01-12] MEDS: BENZTROPINE MESYLATE 1 MG TABLET PO SCH (16:14)
[2020-01-12 16:23] LABS: GLUCOMETER DEV NAME(LOC) 3E.I 2; GLUCOSE,POINT OF CARE 319 MG/DL (70-110)
[2020-01-12 16:42] VITALS: BP 146/94
[2020-01-12 21:01] VITALS: BP 140/86
[2020-01-12] MEDS: HALOPERIDOL 5 MG TABLET PO SCH (21:01)
[2020-01-12] MEDS ORDERED: INFLUENZA VIRUS VACCINE QVS 2019-20 (3YR+)/PF 60 MCG/0.5 ML SYRINGE IM ONE (22:30)
[2020-01-13 05:40] LABS: GLUCOMETER DEV NAME(LOC) 3E.I 2; GLUCOSE,POINT OF CARE 295 MG/DL (70-110)
[2020-01-13] MEDS: MetFORMIN HCL 500 MG TABLET PO SCH (07:00)
[2020-01-13] MEDS: GlipiZIDE 5 MG TABLET PO SCH (07:00)
[2020-01-13] MEDS: INSULIN LISPRO 100 UNITS/ML SQ PRN ×2 (07:02→20:05)
[2020-01-13] MEDS: LISINOPRIL 10 MG TABLET PO SCH (09:41)
[2020-01-13] MEDS: BENZTROPINE MESYLATE 1 MG TABLET PO SCH ×2 (09:41→16:16)
[2020-01-13] MEDS: RisperiDONE 3 MG TABLET PO SCH ×2 (09:41→16:16)
[2020-01-13] MEDS: ONDANSETRON HCL 4 MG TABLET PO PRN (09:47)
[2020-01-13 12:09] VITALS: BP 120/75
[2020-01-13 16:32] VITALS: BP 127/68
[2020-01-13 20:32] LABS: GLUCOMETER DEV NAME(LOC) 3E.I 2; GLUCOSE,POINT OF CARE 294 MG/DL (70-110)
[2020-01-13] MEDS: HALOPERIDOL 5 MG TABLET PO SCH (20:32)
[2020-01-14 05:41] LABS: GLUCOMETER DEV NAME(LOC) 3E.I 2; GLUCOSE,POINT OF CARE 234 MG/DL (70-110)
[2020-01-14] MEDS: GlipiZIDE 5 MG TABLET PO SCH (06:34)
[2020-01-14] MEDS: MetFORMIN HCL 500 MG TABLET PO SCH (06:34)
[2020-01-14] MEDS: INSULIN LISPRO 100 UNITS/ML SQ PRN ×2 (06:36→17:23)
[2020-01-14 08:30] VITALS: BP 130/88
[2020-01-14] MEDS: BENZTROPINE MESYLATE 1 MG TABLET PO SCH ×2 (09:47→17:16)
[2020-01-14] MEDS: RisperiDONE 3 MG TABLET PO SCH ×2 (09:47→17:16)
[2020-01-14] MEDS: LISINOPRIL 10 MG TABLET PO SCH (09:47)
[2020-01-14 16:25] LABS: GLUCOMETER DEV NAME(LOC) 3E.I 2; GLUCOSE,POINT OF CARE 255 MG/DL (70-110)
[2020-01-14 20:34] VITALS: BP 123/83
[2020-01-14] MEDS: HALOPERIDOL 5 MG TABLET PO SCH (20:44)
[2020-01-15 00:39] VITALS: BP 136/93
[2020-01-15 05:45] LABS: GLUCOMETER DEV NAME(LOC) 3E.I 2; GLUCOSE,POINT OF CARE 232 MG/DL (70-110)
[2020-01-15] MEDS: GlipiZIDE 5 MG TABLET PO SCH (06:46)
[2020-01-15] MEDS: MetFORMIN HCL 500 MG TABLET PO SCH (06:50)
[2020-01-15] MEDS: INSULIN LISPRO 100 UNITS/ML SQ PRN ×2 (06:51→17:43)
[2020-01-15 08:40] VITALS: BP 125/86
[2020-01-15] MEDS: BENZTROPINE MESYLATE 1 MG TABLET PO SCH ×2 (08:57→16:23)
[2020-01-15] MEDS: LISINOPRIL 10 MG TABLET PO SCH (08:57)
[2020-01-15] MEDS: RisperiDONE 3 MG TABLET PO SCH ×2 (08:57→16:23)
[2020-01-15 16:55] LABS: GLUCOMETER DEV NAME(LOC) 3E.I 2; GLUCOSE,POINT OF CARE 240 MG/DL (70-110)
[2020-01-15 17:20] VITALS: BP 136/98
[2020-01-15] MEDS: ONDANSETRON HCL 4 MG TABLET PO PRN (20:08)
[2020-01-15] MEDS: HALOPERIDOL 5 MG TABLET PO SCH (20:55)
[2020-01-15 21:47] VITALS: BP 139/97
[2020-01-16 04:37] VITALS: BP 124/84
[2020-01-16 05:31] LABS: GLUCOMETER DEV NAME(LOC) 3E.I 2; GLUCOSE,POINT OF CARE 266 MG/DL (70-110)
[2020-01-16] MEDS: INSULIN LISPRO 100 UNITS/ML SQ PRN ×2 (06:41→17:05)
[2020-01-16] MEDS: GlipiZIDE 5 MG TABLET PO SCH (06:41)
[2020-01-16] MEDS: MetFORMIN HCL 500 MG TABLET PO SCH (06:41)
[2020-01-16 08:20] VITALS: BP 119/81
[2020-01-16] MEDS: RisperiDONE 3 MG TABLET PO SCH ×2 (08:53→16:54)
[2020-01-16] MEDS: LISINOPRIL 10 MG TABLET PO SCH (08:53)
[2020-01-16] MEDS: BENZTROPINE MESYLATE 1 MG TABLET PO SCH ×2 (08:53→16:54)
[2020-01-16 16:00] VITALS: BP 106/73
[2020-01-16 17:15] LABS: GLUCOMETER DEV NAME(LOC) 3E.I 2; GLUCOSE,POINT OF CARE 196 MG/DL (70-110)
[2020-01-16] MEDS: HALOPERIDOL 5 MG TABLET PO SCH (20:27)
[2020-01-17 05:38] LABS: GLUCOMETER DEV NAME(LOC) 3E.I 2; GLUCOSE,POINT OF CARE 193 MG/DL (70-110)
[2020-01-17] MEDS: MetFORMIN HCL 500 MG TABLET PO SCH (06:53)
[2020-01-17] MEDS: GlipiZIDE 5 MG TABLET PO SCH (06:53)
[2020-01-17] MEDS: INSULIN LISPRO 100 UNITS/ML SQ PRN ×2 (06:57→17:30)
[2020-01-17 08:20] VITALS: BP 134/91
[2020-01-17] MEDS: LISINOPRIL 10 MG TABLET PO SCH (08:56)
[2020-01-17] MEDS: BENZTROPINE MESYLATE 1 MG TABLET PO SCH ×2 (08:56→16:22)
[2020-01-17] MEDS: RisperiDONE 3 MG TABLET PO SCH ×2 (08:56→16:22)
[2020-01-17 16:10] LABS: GLUCOMETER DEV NAME(LOC) 3E.I 2; GLUCOSE,POINT OF CARE 155 MG/DL (70-110)
[2020-01-17 17:00] VITALS: BP 113/66
[2020-01-17] MEDS: HALOPERIDOL 5 MG TABLET PO SCH (20:08)
[2020-01-17] MEDS: ONDANSETRON HCL 4 MG TABLET PO PRN (20:08)
[2020-01-18 05:47] LABS: GLUCOMETER DEV NAME(LOC) 3E.I 2; GLUCOSE,POINT OF CARE 275 MG/DL (70-110)
[2020-01-18 06:44] VITALS: BP 109/67
[2020-01-18] MEDS: MetFORMIN HCL 500 MG TABLET PO SCH (06:55)
[2020-01-18] MEDS: GlipiZIDE 5 MG TABLET PO SCH (06:55)
[2020-01-18] MEDS: INSULIN LISPRO 100 UNITS/ML SQ PRN ×2 (06:58→17:31)
[2020-01-18 08:00] VITALS: BP 95/70
[2020-01-18] MEDS: BENZTROPINE MESYLATE 1 MG TABLET PO SCH ×2 (09:08→16:42)
[2020-01-18] MEDS: RisperiDONE 3 MG TABLET PO SCH ×2 (09:08→16:42)
[2020-01-18] MEDS: LISINOPRIL 10 MG TABLET PO SCH (09:09)
[2020-01-18 16:58] LABS: GLUCOMETER DEV NAME(LOC) 3E.I 2; GLUCOSE,POINT OF CARE 174 MG/DL (70-110)
[2020-01-18 18:46] VITALS: BP 134/91
[2020-01-18] MEDS: HALOPERIDOL 5 MG TABLET PO SCH (20:34)
[2020-01-19 05:30] LABS: GLUCOMETER DEV NAME(LOC) 3E.I 2; GLUCOSE,POINT OF CARE 208 MG/DL (70-110)
[2020-01-19] MEDS: GlipiZIDE 5 MG TABLET PO SCH (06:42)
[2020-01-19] MEDS: MetFORMIN HCL 500 MG TABLET PO SCH (06:42)
[2020-01-19] MEDS: INSULIN LISPRO 100 UNITS/ML SQ PRN (06:46)
[2020-01-19] MEDS: ONDANSETRON HCL 4 MG TABLET PO PRN (06:47)
[2020-01-19 08:00] VITALS: BP 119/86
[2020-01-19] MEDS: LISINOPRIL 10 MG TABLET PO SCH (08:47)
[2020-01-19] MEDS: BENZTROPINE MESYLATE 1 MG TABLET PO SCH (08:47)
[2020-01-19] MEDS: RisperiDONE 3 MG TABLET PO SCH (08:47)
== END 2020-01-19 12:48 | disposition home or self-care (01) | DRG 885 ==
LOC: EMS 17:22 → 3EI 19:00
PROVIDERS: ADMIT Psychiatry & Neurology Child & Adolescent Psychiatry; ATTEND Psychiatry & Neurology Child & Adolescent Psychiatry
DX: F20.0 Paranoid schizophrenia (principal); E11.65 Type 2 diabetes mellitus with hyperglycemia; R45.851 Suicidal ideations; E87.1 Hypo-osmolality and hyponatremia; Z28.21 Immunization not carried out because of patient refusal; E78.5 Hyperlipidemia, unspecified; I10 Essential (primary) hypertension; F32.9 Major depressive disorder, single episode, unspecified; Z79.899 Other long term (current) drug therapy; F41.9 Anxiety disorder, unspecified; Z59.0 Homelessness
CPT/HCPCS: 84439; 84443; G0480; J1815; J2405; Q0162

== ENCOUNTER 2021-02-02 21:41 | Emergency (ER) | payer MEDICAID, OTHER ==
[~2021-02-02] VITALS: Ht 185.4 cm; Wt 102.3 kg
[~2021-02-02 21:41] MED LIST changes: -LISI-661 PO; +LISI-893 PO; -RISP3 PO; +RISP3TAB35 PO
[2021-02-02 21:49] VITALS: BP 150/104
[2021-02-02] MEDS ORDERED: PROZ10 PO (21:58)
[2021-02-02 22:08] LABS: GLUCOSE,POINT OF CARE 375 MG/DL (70-110)
[2021-02-02 22:43] LABS: EOSINOPHILS % (AUTO) 4.2 % (1.0-6.0); HEMOGLOBIN 15.2 g/dL (13.5-17.5); LYMPHOCYTES # (AUTO) 1.9 K/uL (1.0-4.8); MEAN CORPUSCULAR HEMOGLOBIN 32.7 pg (26.0-34.0); MEAN CORPUSCULAR HGB CONC 35.3 G/dL (31.0-37.0); MEAN CORPUSCULAR VOLUME 93 fL (80-100); MONOCYTES # (AUTO) 0.6 K/uL (0.1-1.0); MONOCYTES % (AUTO) 9.1 % (2.0-9.0); NEUTROPHILS # (AUTO) 3.5 K/uL (1.8-7.7); NEUTROPHILS % (AUTO) 55.7 % (40.0-70.0); PLATELET COUNT (AUTO) 232 K/uL (150-450); RED BLOOD CELL COUNT(AUTO) 4.63 MIL/uL (4.50-5.90); RED CELL DISTRIBUTION WIDTH 12.8 % (11.5-14.5)
[2021-02-02] MEDS ORDERED: LORazepam 2 MG TABLET PO ONE (22:45)
[2021-02-02 22:56] LABS: ANION GAP 14 mmol/L (8-16); CALCIUM, TOTAL 8.9 mg/dL (8.8-10.5); CARBON DIOXIDE 27 mmol/L (22-29); CHLORIDE 100 mmol/L (98-107); GLOMERULAR FILTR. RATE CALC > 60 mL/min (>60); GLUCOSE,RANDOM 307 mg/dL (70-110); POTASSIUM 3.8 mmol/L (3.5-5.1); SODIUM SERUM 141 mmol/L (136-145); UREA NITROGEN, BLOOD 12 mg/dL (7-18)
[2021-02-02 22:59] LABS: BARBITURATE SCREEN, URINE NEGATIVE (NEGATIVE); METHADONE SCREEN, URINE NEGATIVE (NEGATIVE)
[2021-02-02 23:02] LABS: ALANINE AMINOTRANSFERASE 25 U/L (12-78); ALBUMIN 3.3 g/dL (3.4-5.0); ALKALINE PHOSPHATASE 107 U/L (46-116); ASPARTATE AMINOTRANSFERASE 9 U/L (15-37); BILIRUBIN,TOTAL 0.3 mg/dL (0.1-1.0); TOTAL PROTEIN, SERUM 6.9 g/dL (6.4-8.2)
[2021-02-02 23:09] LABS: AMPHET/METH SCREEN,URINE NEGATIVE (NEGATIVE); BENZODIAZEPINES SCREEN,URINE NEGATIVE (NEGATIVE); CANNABINOID SCREEN,URINE NEGATIVE (NEGATIVE); COCAINE SCREEN,URINE NEGATIVE (NEGATIVE); OPIATE SCREEN,URINE NEGATIVE (NEGATIVE)
[2021-02-02 23:12] LABS: PHENCYCLIDINE SCREEN,URINE NEGATIVE (NEGATIVE)
[2021-02-02 23:13] LABS: SALICYLATE < 0.2 mg/dL (2.8-20.0)
[2021-02-02] MEDS ORDERED: MetFORMIN HCL 500 MG TABLET PO ONE (23:45)
== END 2021-02-03 00:03 | disposition home or self-care (01) ==
LOC: EMS 21:41
DX: F32.9 Major depressive disorder, single episode, unspecified (principal); E11.65 Type 2 diabetes mellitus with hyperglycemia; I10 Essential (primary) hypertension; F20.9 Schizophrenia, unspecified; Z59.0 Homelessness; Z79.899 Other long term (current) drug therapy; Z79.84 Long term (current) use of oral hypoglycemic drugs
CPT/HCPCS: 36415; 80053; 80307; 82962; 85025; 99284; G0480; G0481

== ENCOUNTER 2021-02-20 11:09 | Inpatient (IN) | payer MEDICAID, OTHER ==
[~2021-02-20] VITALS: Ht 190.5 cm; Wt 102.9 kg
[~2021-02-20 11:09] MED LIST changes: +PROZ10 PO
[2021-02-20 14:03] LABS: COVID AG,FIA SOURCE NASOPHARYNGEAL
[2021-02-20] MEDS ORDERED: ACETAMINOPHEN 325 MG TABLET PO PRN (14:15)
[2021-02-20] MEDS ORDERED: OLANZapine 5 MG RAPDIS TABLET PO PRN (14:15)
[2021-02-20] MEDS ORDERED: PROMETHAZINE HCL 25 MG TABLET PO PRN (14:15)
[2021-02-20] MEDS ORDERED: MAG HYDROX/AL HYDROX/SIMETH ES 30 ML SUSPENSION UDCUP PO PRN (14:15)
[2021-02-20] MEDS ORDERED: LORazepam 2 MG TABLET PO PRN (14:15)
[2021-02-20] MEDS ORDERED: HydrOXYzine PAMOATE 50 MG CAPSULE PO PRN (14:15)
[2021-02-20] MEDS ORDERED: MAGNESIUM HYDROXIDE SUSPENSION 30 ML UDCUP PO PRN (14:15)
[2021-02-20] MEDS ORDERED: GuaiFENesin/D-METHORPHAN [SUGAR-FREE] 200-20MG/10 ML SYRUP UDCUP PO PRN (14:15)
[2021-02-20] MEDS ORDERED: ZOLPIDEM TARTRATE 10 MG TABLET PO PRN ×2 (14:15)
[2021-02-20] MEDS ORDERED: TUBERCULIN, PURIFIED PROTEIN DERIVATIVE 5 TU/0.1 ML SYRINGE ID ONE (14:15)
[2021-02-20] MEDS ORDERED: LOPERAMIDE HCL 2 MG CAPSULE PO PRN (14:15)
[2021-02-20 16:35] VITALS: BP 159/97
[2021-02-20 17:28] LABS: GLUCOMETER DEV NAME(LOC) 3E.I 2; GLUCOSE,POINT OF CARE 333 MG/DL (70-110)
[2021-02-20] MEDS ORDERED: DEXTROSE 50%-WATER 25 GM/50 ML SYRINGE IVP PRN (17:45)
[2021-02-20 20:54] LABS: GLUCOMETER DEV NAME(LOC) 3E.I 2; GLUCOSE,POINT OF CARE 296 MG/DL (70-110)
[2021-02-20] MEDS ORDERED: OLANZapine 5 MG RAPDIS TABLET PO SCH (21:00)
[2021-02-20] MEDS: SERTRALINE HCL 50 MG TABLET PO SCH (21:19)
[2021-02-20] MEDS: MELATONIN 5 MG TABLET PO SCH (21:19)
[2021-02-20] MEDS: THIAMINE 100 MG TABLET PO SCH (21:19)
[2021-02-20] MEDS: INSULIN LISPRO 100 UNITS/ML SQ PRN (21:23)
[2021-02-20] MEDS: PNEUMOCOCCAL VACCINE POLYVALENT 0.5 ML VIAL [PPSV23] IM. ONE (23:00)
[2021-02-21 00:46] VITALS: BP 125/81
[2021-02-21 05:33] LABS: GLUCOMETER DEV NAME(LOC) 3E.I 2; GLUCOSE,POINT OF CARE 284 MG/DL (70-110)
[2021-02-21 06:31] LABS: HEMOGLOBIN A1C 8.5 % (3.8-5.6)
[2021-02-21 06:53] LABS: CHOL/HDL RATIO 5.1 (4.2-7.3); FREE T4 (FREE THYROXINE) 1.14 ng/dL (0.76-1.46); THYROID STIMULATING HORMONE 1.14 uIU/mL (0.36-3.74)
[2021-02-21] MEDS: INSULIN LISPRO 100 UNITS/ML SQ PRN ×5 (06:59→21:02)
[2021-02-21 08:46] VITALS: BP 118/82
[2021-02-21] MEDS ORDERED: FLUoxetine HCL 20 MG CAPSULE PO SCH (09:00)
[2021-02-21] MEDS: NALTREXONE HCL 50 MG TABLET PO SCH (09:28)
[2021-02-21] MEDS: OMEGA-3/DHA/EPA/FISH OIL 1,000 MG CAPSULE PO SCH (09:28)
[2021-02-21] MEDS: MULTIVITAMINS WITH MINERALS, THERAPEUTIC TABLET PO SCH (09:28)
[2021-02-21] MEDS: THIAMINE 100 MG TABLET PO SCH ×2 (09:28→17:01)
[2021-02-21] MEDS: FOLIC ACID 1 MG TABLET PO SCH (09:29)
[2021-02-21] MEDS: PNEUMOCOCCAL VACCINE POLYVALENT 0.5 ML VIAL [PPSV23] IM. ONE (10:54)
[2021-02-21 11:47] LABS: GLUCOMETER DEV NAME(LOC) 3E.I 2; GLUCOSE,POINT OF CARE 344 MG/DL (70-110)
[2021-02-21 17:17] LABS: GLUCOMETER DEV NAME(LOC) 3E.I 2; GLUCOSE,POINT OF CARE 248 MG/DL (70-110)
[2021-02-21] MEDS ORDERED: MetFORMIN HCL 500 MG TABLET PO SCH (17:30)
[2021-02-21] MEDS: MELATONIN 5 MG TABLET PO SCH (20:40)
[2021-02-21] MEDS: SERTRALINE HCL 50 MG TABLET PO SCH (20:41)
[2021-02-21] MEDS: OLANZapine 10 MG RAPDIS TABLET PO SCH (20:41)
[2021-02-21 21:29] LABS: GLUCOMETER DEV NAME(LOC) 3E.I 2; GLUCOSE,POINT OF CARE 319 MG/DL (70-110)
[2021-02-22 05:37] LABS: GLUCOMETER DEV NAME(LOC) 3E.I 2; GLUCOSE,POINT OF CARE 289 MG/DL (70-110)
[2021-02-22] MEDS: GlipiZIDE 5 MG TABLET PO SCH (08:06)
[2021-02-22] MEDS: MetFORMIN HCL 500 MG TABLET PO SCH ×2 (08:06→17:22)
[2021-02-22] MEDS: LISINOPRIL 10 MG TABLET PO SCH (08:07)
[2021-02-22] MEDS: THIAMINE 100 MG TABLET PO SCH ×2 (08:07→17:21)
[2021-02-22] MEDS: MULTIVITAMINS WITH MINERALS, THERAPEUTIC TABLET PO SCH (08:07)
[2021-02-22] MEDS: NALTREXONE HCL 50 MG TABLET PO SCH (08:07)
[2021-02-22] MEDS: FOLIC ACID 1 MG TABLET PO SCH (08:07)
[2021-02-22] MEDS: OMEGA-3/DHA/EPA/FISH OIL 1,000 MG CAPSULE PO SCH (08:09)
[2021-02-22] MEDS: INSULIN LISPRO 100 UNITS/ML SQ PRN ×5 (08:16→20:42)
[2021-02-22 09:27] VITALS: BP 144/98
[2021-02-22 10:48] VITALS: BP 144/98
[2021-02-22 11:58] LABS: GLUCOMETER DEV NAME(LOC) 3E.I 2; GLUCOSE,POINT OF CARE 225 MG/DL (70-110)
[2021-02-22 16:52] VITALS: BP 136/74
[2021-02-22 17:25] LABS: GLUCOMETER DEV NAME(LOC) 3E.I 2; GLUCOSE,POINT OF CARE 221 MG/DL (70-110)
[2021-02-22] MEDS: MELATONIN 5 MG TABLET PO SCH (20:36)
[2021-02-22] MEDS: OLANZapine 10 MG RAPDIS TABLET PO SCH (20:36)
[2021-02-22] MEDS: SERTRALINE HCL 100 MG TABLET PO SCH (20:36)
[2021-02-22 21:26] LABS: GLUCOMETER DEV NAME(LOC) 3E.I 2; GLUCOSE,POINT OF CARE 218 MG/DL (70-110)
[2021-02-23 00:35] VITALS: BP 112/77
[2021-02-23 04:28] LABS: GLUCOMETER DEV NAME(LOC) 3E.I 2; GLUCOSE,POINT OF CARE 255 MG/DL (70-110)
[2021-02-23 05:50] LABS: GLUCOMETER DEV NAME(LOC) 3E.I 2; GLUCOSE,POINT OF CARE 265 MG/DL (70-110)
[2021-02-23] MEDS: MetFORMIN HCL 500 MG TABLET PO SCH ×2 (07:07→17:03)
[2021-02-23] MEDS: GlipiZIDE 5 MG TABLET PO SCH (07:08)
[2021-02-23] MEDS: INSULIN LISPRO 100 UNITS/ML SQ PRN ×4 (07:09→20:59)
[2021-02-23] MEDS: OMEGA-3/DHA/EPA/FISH OIL 1,000 MG CAPSULE PO SCH (08:53)
[2021-02-23] MEDS: LISINOPRIL 10 MG TABLET PO SCH (08:54)
[2021-02-23] MEDS: THIAMINE 100 MG TABLET PO SCH ×2 (08:54→17:03)
[2021-02-23] MEDS: FOLIC ACID 1 MG TABLET PO SCH (08:54)
[2021-02-23] MEDS: MULTIVITAMINS WITH MINERALS, THERAPEUTIC TABLET PO SCH (08:54)
[2021-02-23] MEDS: NALTREXONE HCL 50 MG TABLET PO SCH (08:54)
[2021-02-23 10:28] VITALS: BP 112/75
[2021-02-23 11:52] LABS: GLUCOMETER DEV NAME(LOC) 3E.I 2; GLUCOSE,POINT OF CARE 234 MG/DL (70-110)
[2021-02-23 16:00] VITALS: BP 126/85
[2021-02-23 17:13] LABS: GLUCOMETER DEV NAME(LOC) 3E.I 2; GLUCOSE,POINT OF CARE 174 MG/DL (70-110)
[2021-02-23] MEDS ORDERED: OMEG-135 PO (20:47)
[2021-02-23] MEDS ORDERED: OLAN10TA22 PO (20:47)
[2021-02-23] MEDS ORDERED: MELA5TAB3 PO (20:47)
[2021-02-23] MEDS ORDERED: NALT50TA PO (20:47)
[2021-02-23] MEDS ORDERED: SERT-440 PO (20:47)
[2021-02-23] MEDS: SERTRALINE HCL 100 MG TABLET PO SCH (20:54)
[2021-02-23] MEDS: OLANZapine 10 MG RAPDIS TABLET PO SCH (20:54)
[2021-02-23] MEDS: MELATONIN 5 MG TABLET PO SCH (20:54)
[2021-02-23 21:09] LABS: GLUCOMETER DEV NAME(LOC) 3E.I 2; GLUCOSE,POINT OF CARE 231 MG/DL (70-110)
[2021-02-24 05:42] LABS: GLUCOMETER DEV NAME(LOC) 3E.I 2; GLUCOSE,POINT OF CARE 235 MG/DL (70-110)
[2021-02-24] MEDS: MetFORMIN HCL 500 MG TABLET PO SCH (06:44)
[2021-02-24] MEDS: GlipiZIDE 5 MG TABLET PO SCH (06:44)
[2021-02-24] MEDS: INSULIN LISPRO 100 UNITS/ML SQ PRN ×2 (06:45→11:15)
[2021-02-24] MEDS: LISINOPRIL 10 MG TABLET PO SCH (09:49)
[2021-02-24] MEDS: MULTIVITAMINS WITH MINERALS, THERAPEUTIC TABLET PO SCH (09:49)
[2021-02-24] MEDS: THIAMINE 100 MG TABLET PO SCH (09:49)
[2021-02-24] MEDS: FOLIC ACID 1 MG TABLET PO SCH (09:49)
[2021-02-24] MEDS: OMEGA-3/DHA/EPA/FISH OIL 1,000 MG CAPSULE PO SCH (09:49)
[2021-02-24] MEDS: NALTREXONE HCL 50 MG TABLET PO SCH (09:49)
[2021-02-24 11:19] LABS: GLUCOMETER DEV NAME(LOC) 3E.I 2; GLUCOSE,POINT OF CARE 207 MG/DL (70-110)
[2021-02-24] MEDS ORDERED: FOLI-130 PO (11:22)
[2021-02-24] MEDS ORDERED: MULT-1239 PO (11:22)
[2021-02-24] MEDS ORDERED: THIA100T80 PO (11:22)
== END 2021-02-24 14:10 | disposition home or self-care (01) | DRG 750 ==
LOC: EMS 11:09 → 3EI 16:08
PROVIDERS: ADMIT Psychiatry & Neurology Psychiatry; ATTEND Psychiatry & Neurology Psychiatry
DX: F25.9 Schizoaffective disorder, unspecified (principal); E11.9 Type 2 diabetes mellitus without complications; R45.851 Suicidal ideations; E78.5 Hyperlipidemia, unspecified; F17.210 Nicotine dependence, cigarettes, uncomplicated; I10 Essential (primary) hypertension; Z20.822 Contact with and (suspected) exposure to COVID-19; Z28.21 Immunization not carried out because of patient refusal; J44.9 Chronic obstructive pulmonary disease, unspecified; F10.10 Alcohol abuse, uncomplicated; Z55.9 Problems related to education and literacy, unspecified; Z59.0 Homelessness; Z65.3 Problems related to other legal circumstances
CPT/HCPCS: 80061; 82962; 83036; 84439; 84443; 86592; 87426; 90732; 93005; 99285; A9575

== ENCOUNTER 2022-09-05 18:28 | Emergency (ER) | payer MEDICAID, OTHER ==
[~2022-09-05] VITALS: Ht 185.4 cm; Wt 98.2 kg
[~2022-09-05 18:28] MED LIST changes: -BENZ1TAB10 PO; +FOLI-130 PO; -GLIP5 PO; +GLIP5TAB12 PO; -HALO5TAB2 PO; +MELA5TAB40 PO; +METF-1211 PO; -METF-960 PO; +MULT-1239 PO; +NALT50TA PO; +OLAN10TA22 PO; +OMEG-135 PO; -PROZ10 PO; -RISP3TAB35 PO; +SERT-440 PO; +THIA100T80 PO
[2022-09-05] MEDS ORDERED: SIMV-259 PO (18:37)
[2022-09-05] MEDS ORDERED: [UNRECOGNIZED DRUG - OTHER] MISC (18:37)
[2022-09-05] MEDS ORDERED: HYDR25TA2 PO (18:37)
[2022-09-05] MEDS ORDERED: LISI20TA24 PO (18:37)
[2022-09-05] MEDS ORDERED: HALO5TAB23 PO (18:37)
[2022-09-05 19:00] LABS: COVID AG,FIA SOURCE NASOPHARYNGEAL
[2022-09-05 19:00] LABS: BASOPHILS % (AUTO) 0.4 % (0.0-2.0); EOSINOPHILS % (AUTO) 2.8 % (1.0-6.0); HEMATOCRIT 44.6 % (41-53); HEMOGLOBIN 15.5 g/dL (13.5-17.5); LYMPHOCYTES # (AUTO) 1.4 K/uL (1.0-4.8); LYMPHOCYTES % (AUTO) 14.7 % (22.0-44.0); MEAN CORPUSCULAR HEMOGLOBIN 31.7 pg (26.0-34.0); MEAN CORPUSCULAR HGB CONC 34.7 G/dL (31.0-37.0); MEAN CORPUSCULAR VOLUME 92 fL (80-100); MONOCYTES # (AUTO) 0.8 K/uL (0.1-1.0); MONOCYTES % (AUTO) 7.9 % (2.0-9.0); NEUTROPHILS # (AUTO) 7.1 K/uL (1.8-7.7); NEUTROPHILS % (AUTO) 74.2 % (40.0-70.0); PLATELET COUNT (AUTO) 206 K/uL (150-450); RED BLOOD CELL COUNT(AUTO) 4.88 MIL/uL (4.50-5.90); RED CELL DISTRIBUTION WIDTH 13.6 % (11.5-14.5)
[2022-09-05 19:05] LABS: ANION GAP 3 mmol/L (8-16); CALCIUM, TOTAL 9.1 mg/dL (8.8-10.5); CARBON DIOXIDE 31 mmol/L (22-29); CHLORIDE 98 mmol/L (98-107); CREATININE 0.82 mg/dL (0.60-1.30); GLOMERULAR FILTR. RATE CALC > 60 mL/min (>60); GLUCOSE,RANDOM 154 mg/dL (70-110); POTASSIUM 3.8 mmol/L (3.5-5.1); SODIUM SERUM 132 mmol/L (136-145); UREA NITROGEN, BLOOD 12 mg/dL (7-18)
[2022-09-05 19:10] LABS: ALANINE AMINOTRANSFERASE 13 U/L (12-78); ALBUMIN 3.3 g/dL (3.4-5.0); ALKALINE PHOSPHATASE 85 U/L (46-116); ASPARTATE AMINOTRANSFERASE 9 U/L (15-37); BILIRUBIN,TOTAL 0.6 mg/dL (0.1-1.0); TOTAL PROTEIN, SERUM 7.1 g/dL (6.4-8.2)
[2022-09-05] MEDS ORDERED: ACETAMINOPHEN 500 MG TABLET PO ONE (19:30)
[2022-09-05] MEDS ORDERED: DOXYCYCLINE HYCLATE 100 MG TABLET PO ONE (19:30)
[2022-09-05 20:01] LABS: AMPHET/METH SCREEN,URINE NEGATIVE (NEGATIVE); BARBITURATE SCREEN, URINE NEGATIVE (NEGATIVE); BENZODIAZEPINES SCREEN,URINE NEGATIVE (NEGATIVE); CANNABINOID SCREEN,URINE NEGATIVE (NEGATIVE); COCAINE SCREEN,URINE NEGATIVE (NEGATIVE); METHADONE SCREEN, URINE NEGATIVE (NEGATIVE); OPIATE SCREEN,URINE NEGATIVE (NEGATIVE); PHENCYCLIDINE SCREEN,URINE NEGATIVE (NEGATIVE)
[2022-09-05] MEDS ORDERED: DOXY-354 PO (20:44)
[2022-09-05 20:45] VITALS: BP 132/85
== END 2022-09-05 21:00 | disposition home or self-care (01) ==
LOC: EMS 18:28
DX: F20.9 Schizophrenia, unspecified (principal); L03.221 Cellulitis of neck; E11.9 Type 2 diabetes mellitus without complications; I10 Essential (primary) hypertension; Z59.00 Homelessness unspecified; Z20.822 Contact with and (suspected) exposure to COVID-19
CPT/HCPCS: 99284; 87426; 80053; 82962; 85025; 36415; 80307; G0480

== ENCOUNTER 2023-01-18 15:34 | Inpatient (IN) | payer OTHER ==
[~2023-01-18] VITALS: Ht 185.4 cm; Wt 92.5 kg
[~2023-01-18 15:34] MED LIST changes: +DOXY-354 PO; -FOLI-130 PO; -GLIP5TAB12 PO; +HALO5TAB23 PO; +HYDR25TA2 PO; -LISI-893 PO; +LISI20TA24 PO; -MELA5TAB40 PO; -MULT-1239 PO; -NALT50TA PO; -OLAN10TA22 PO; -OMEG-135 PO; +SIMV-259 PO; -THIA100T80 PO; +[UNRECOGNIZED DRUG - OTHER] MISC
[2023-01-18 16:41] LABS: BASOPHILS % (AUTO) 0.8 % (0.0-2.0); EOSINOPHILS % (AUTO) 3.9 % (1.0-6.0); HEMATOCRIT 43.1 % (41-53); HEMOGLOBIN 15.1 g/dL (13.5-17.5); LYMPHOCYTES # (AUTO) 1.2 K/uL (1.0-4.8); LYMPHOCYTES % (AUTO) 20.6 % (22.0-44.0); MEAN CORPUSCULAR HEMOGLOBIN 31.9 pg (26.0-34.0); MEAN CORPUSCULAR HGB CONC 34.9 G/dL (31.0-37.0); MEAN CORPUSCULAR VOLUME 91 fL (80-100); MONOCYTES # (AUTO) 0.4 K/uL (0.1-1.0); MONOCYTES % (AUTO) 7.3 % (2.0-9.0); NEUTROPHILS # (AUTO) 3.8 K/uL (1.8-7.7); NEUTROPHILS % (AUTO) 67.4 % (40.0-70.0); PLATELET COUNT (AUTO) 197 K/uL (150-450); RED BLOOD CELL COUNT(AUTO) 4.71 MIL/uL (4.50-5.90); RED CELL DISTRIBUTION WIDTH 13.5 % (11.5-14.5)
[2023-01-18 16:45] LABS: ANION GAP 7 mmol/L (8-16); CALCIUM, TOTAL 8.7 mg/dL (8.8-10.5); CARBON DIOXIDE 27 mmol/L (22-29); CHLORIDE 103 mmol/L (98-107); CREATININE 0.67 mg/dL (0.60-1.30); GLOMERULAR FILTR. RATE CALC > 60 mL/min (>60); GLUCOSE,RANDOM 169 mg/dL (70-110); POTASSIUM 3.4 mmol/L (3.5-5.1); SODIUM SERUM 137 mmol/L (136-145); UREA NITROGEN, BLOOD 14 mg/dL (7-18)
[2023-01-18 16:51] LABS: ALANINE AMINOTRANSFERASE 28 U/L (12-78); ALBUMIN 3.3 g/dL (3.4-5.0); ALKALINE PHOSPHATASE 84 U/L (46-116); ASPARTATE AMINOTRANSFERASE 17 U/L (15-37); BILIRUBIN,TOTAL 0.3 mg/dL (0.1-1.0); TOTAL PROTEIN, SERUM 6.6 g/dL (6.4-8.2)
[2023-01-18] MEDS ORDERED: LORazepam 2 MG/ML VIAL IM ONE (20:15)
[2023-01-18] MEDS ORDERED: HALOPERIDOL LACTATE 5 MG/ML VIAL IM ONE (20:15)
[2023-01-18] MEDS ORDERED: DiphenhydrAMINE HCL 50 MG/ML VIAL IM ONE (20:15)
[2023-01-18 21:12] LABS: AMPHET/METH SCREEN,URINE NEGATIVE (NEGATIVE); BARBITURATE SCREEN, URINE NEGATIVE (NEGATIVE); BENZODIAZEPINES SCREEN,URINE NEGATIVE (NEGATIVE); CANNABINOID SCREEN,URINE NEGATIVE (NEGATIVE); COCAINE SCREEN,URINE NEGATIVE (NEGATIVE); METHADONE SCREEN, URINE NEGATIVE (NEGATIVE); OPIATE SCREEN,URINE NEGATIVE (NEGATIVE); PHENCYCLIDINE SCREEN,URINE NEGATIVE (NEGATIVE)
[2023-01-18 21:28] LABS: COVID AG,FIA SOURCE NASOPHARYNGEAL
[2023-01-18] MEDS ORDERED: 0.9% SODIUM CHLORIDE 10 ML SYRINGE IVP PRN (22:15)
[2023-01-18] MEDS ORDERED: ACETAMINOPHEN 325 MG TABLET PO PRN ×2 (22:15→22:30)
[2023-01-18] MEDS ORDERED: ONDANSETRON HCL 4 MG/2 ML VIAL IVP PRN ×2 (22:15→22:30)
[2023-01-18] MEDS ORDERED: VANCOMYCIN HCL 1.5 GM in DEXTROSE 5%-WATER 250 ML IV ONE (22:45)
[2023-01-18] MEDS ORDERED: POTASSIUM CHLORIDE 20 MEQ ER TABLET PO ONE (22:45)
[2023-01-18] MEDS: HEPARIN SODIUM,PORCINE 5,000 UNITS/ML VIAL SQ SCH ×2 (22:58→23:11)
[2023-01-19] MEDS ORDERED: SERT-162 PO (00:21)
[2023-01-19] MEDS ORDERED: GABA-1181 PO (00:27)
[2023-01-19] MEDS ORDERED: HALO100V36 IM (00:27)
[2023-01-19] MEDS ORDERED: PIOG30TA10 PO (00:27)
[2023-01-19] MEDS ORDERED: OXCA300T70 PO (00:31)
[2023-01-19] MEDS ORDERED: HALO5TAB23 PO (00:31)
[2023-01-19] MEDS ORDERED: VANC250C13 IV (00:42)
[2023-01-19 05:25] LABS: ALANINE AMINOTRANSFERASE 25 U/L (12-78); ALBUMIN 3.3 g/dL (3.4-5.0); ALKALINE PHOSPHATASE 84 U/L (46-116); ANION GAP 5 mmol/L (8-16); ASPARTATE AMINOTRANSFERASE 24 U/L (15-37); BILIRUBIN,TOTAL 0.5 mg/dL (0.1-1.0); CALCIUM, TOTAL 8.7 mg/dL (8.8-10.5); CARBON DIOXIDE 28 mmol/L (22-29); CHLORIDE 106 mmol/L (98-107); CREATININE 0.73 mg/dL (0.60-1.30); GLOMERULAR FILTR. RATE CALC > 60 mL/min (>60); GLUCOSE,RANDOM 150 mg/dL (70-110); POTASSIUM 3.7 mmol/L (3.5-5.1); SODIUM SERUM 139 mmol/L (136-145); TOTAL PROTEIN, SERUM 6.6 g/dL (6.4-8.2); UREA NITROGEN, BLOOD 12 mg/dL (7-18)
[2023-01-19 05:27] LABS: BASOPHILS % (AUTO) 0.9 % (0.0-2.0); EOSINOPHILS % (AUTO) 7.9 % (1.0-6.0); HEMATOCRIT 44.2 % (41-53); HEMOGLOBIN 15.5 g/dL (13.5-17.5); LYMPHOCYTES # (AUTO) 1.4 K/uL (1.0-4.8); LYMPHOCYTES % (AUTO) 30.9 % (22.0-44.0); MEAN CORPUSCULAR HEMOGLOBIN 32.9 pg (26.0-34.0); MEAN CORPUSCULAR HGB CONC 35.1 G/dL (31.0-37.0); MEAN CORPUSCULAR VOLUME 94 fL (80-100); MONOCYTES # (AUTO) 0.5 K/uL (0.1-1.0); NEUTROPHILS # (AUTO) 2.3 K/uL (1.8-7.7); NEUTROPHILS % (AUTO) 49.3 % (40.0-70.0); PLATELET COUNT (AUTO) 131 K/uL (150-450); RED BLOOD CELL COUNT(AUTO) 4.72 MIL/uL (4.50-5.90); RED CELL DISTRIBUTION WIDTH 13.4 % (11.5-14.5)
[2023-01-19] MEDS ORDERED: DEXTROSE 50%-WATER 25 GM/50 ML SYRINGE IVP PRN (06:30)
[2023-01-19] MEDS ORDERED: VANCOMYCIN HCL 1250 MG IV SCH (06:30)
[2023-01-19] MEDS ORDERED: HALOPERIDOL 5 MG TABLET PO PRN (06:30)
[2023-01-19] MEDS: HEPARIN SODIUM,PORCINE 5,000 UNITS/ML VIAL SQ SCH ×2 (07:22→15:12)
[2023-01-19] MEDS ORDERED: VANCOMYCIN HCL 1.25 GM in DEXTROSE 5%-WATER 250 ML IV SCH (08:00)
[2023-01-19] MEDS: VANCOMYCIN HCL 1.5 GM in DEXTROSE 5%-WATER 250 ML IV SCH ×2 (08:29→20:35)
[2023-01-19] MEDS: GABAPENTIN 300 MG CAPSULE PO SCH ×3 (08:40→21:15)
[2023-01-19] MEDS: DOXYCYCLINE HYCLATE 100 MG TABLET PO SCH ×2 (08:41→21:14)
[2023-01-19] MEDS: OXcarbazepine 300 MG TABLET PO SCH (08:41)
[2023-01-19] MEDS: SERTRALINE HCL 100 MG TABLET PO SCH (08:42)
[2023-01-19] MEDS: LISINOPRIL 5 MG TABLET PO SCH (08:42)
[2023-01-19] MEDS: PIOGLITAZONE HCL 30 MG TABLET PO SCH (08:43)
[2023-01-19] MEDS: HYDROCHLOROTHIAZIDE 25 MG TABLET PO SCH (08:47)
[2023-01-19] MEDS ORDERED: HALOPERIDOL 5 MG TABLET PO SCH (09:00)
[2023-01-19] MEDS ORDERED: DULA3PEN SQ (11:29)
[2023-01-19] MEDS ORDERED: EMPA25TA3 PO (11:29)
[2023-01-19] MEDS ORDERED: SIMV-261 PO (11:29)
[2023-01-19] MEDS ORDERED: VANC1.2524 IV (11:29)
[2023-01-19] MEDS ORDERED: LISI40TA9 PO (11:29)
[2023-01-19] MEDS ORDERED: HALOPERIDOL LACTATE 5 MG/ML VIAL IM ONE (14:00)
[2023-01-19] MEDS ORDERED: DiphenhydrAMINE HCL 50 MG/ML VIAL IM ONE (14:00)
[2023-01-19] MEDS ORDERED: LORazepam 2 MG/ML VIAL IM ONE (14:00)
[2023-01-19] MEDS ORDERED: RINGERS SOLUTION,LACTATED 1,000 ML IV ONE (20:15)
[2023-01-19] MEDS ORDERED: SODIUM CHLORIDE 0.9% 500 ML IV ONE (20:22)
[2023-01-19 20:31] VITALS: BP 145/84
[2023-01-19] MEDS: HALOPERIDOL 5 MG TABLET PO SCH (21:15)
[2023-01-19] MEDS: SIMVASTATIN 40 MG TABLET PO SCH (21:15)
[2023-01-19] MEDS: INSULIN LISPRO 100 UNITS/ML SQ PRN (21:23)
[2023-01-20] MEDS: HEPARIN SODIUM,PORCINE 5,000 UNITS/ML VIAL SQ SCH ×4 (00:13→23:56)
[2023-01-20 02:36] LABS: GLUCOMETER DEV NAME(LOC) 6N.1; GLUCOSE,POINT OF CARE 244 MG/DL (70-110)
[2023-01-20 05:35] VITALS: BP 147/87
[2023-01-20] MEDS: INSULIN LISPRO 100 UNITS/ML SQ PRN ×4 (05:37→20:31)
[2023-01-20 06:57] LABS: ANION GAP 6 mmol/L (8-16); CALCIUM, TOTAL 9.1 mg/dL (8.8-10.5); CARBON DIOXIDE 31 mmol/L (22-29); CHLORIDE 100 mmol/L (98-107); CREATININE 0.85 mg/dL (0.60-1.30); GLOMERULAR FILTR. RATE CALC > 60 mL/min (>60); GLUCOSE,RANDOM 210 mg/dL (70-110); POTASSIUM 4.4 mmol/L (3.5-5.1); SODIUM SERUM 137 mmol/L (136-145); UREA NITROGEN, BLOOD 11 mg/dL (7-18); VANCOMYCIN,RANDOM 14.5 mcg/mL (25.0-50.0)
[2023-01-20 08:30] VITALS: BP 127/82
[2023-01-20] MEDS: DOXYCYCLINE HYCLATE 100 MG TABLET PO SCH ×2 (08:34→20:26)
[2023-01-20] MEDS ORDERED: SODIUM CHLORIDE 0.9% 500 ML IV ONE (08:34)
[2023-01-20] MEDS: GABAPENTIN 300 MG CAPSULE PO SCH ×3 (08:36→20:26)
[2023-01-20] MEDS: HALOPERIDOL 5 MG TABLET PO SCH ×2 (08:36→20:27)
[2023-01-20] MEDS: OXcarbazepine 300 MG TABLET PO SCH (08:37)
[2023-01-20] MEDS: SERTRALINE HCL 100 MG TABLET PO SCH (08:37)
[2023-01-20] MEDS: LISINOPRIL 5 MG TABLET PO SCH (08:37)
[2023-01-20] MEDS: HYDROCHLOROTHIAZIDE 25 MG TABLET PO SCH (08:38)
[2023-01-20] MEDS: PIOGLITAZONE HCL 30 MG TABLET PO SCH (08:38)
[2023-01-20] MEDS: VANCOMYCIN HCL 1.5 GM in DEXTROSE 5%-WATER 250 ML IV SCH ×2 (08:39→20:26)
[2023-01-20 11:21] LABS: GLUCOMETER DEV NAME(LOC) 6N.1; GLUCOSE,POINT OF CARE 146 MG/DL (70-110)
[2023-01-20] MEDS ORDERED: HALOPERIDOL DECANOATE 100 MG/ML VIAL IM ONE (11:30)
[2023-01-20 11:31] LABS: GLUCOMETER DEV NAME(LOC) 6S.1B; GLUCOSE,POINT OF CARE 203 MG/DL (70-110)
[2023-01-20 16:10] VITALS: BP 117/81
[2023-01-20 17:47] LABS: GLUCOMETER DEV NAME(LOC) 6N.1; GLUCOSE,POINT OF CARE 158 MG/DL (70-110)
[2023-01-20 19:19] VITALS: BP 115/67
[2023-01-20] MEDS: SIMVASTATIN 40 MG TABLET PO SCH (20:27)
[2023-01-21 02:16] LABS: GLUCOMETER DEV NAME(LOC) 6N.1; GLUCOSE,POINT OF CARE 254 MG/DL (70-110)
[2023-01-21 04:53] VITALS: BP 138/81
[2023-01-21] MEDS: INSULIN LISPRO 100 UNITS/ML SQ PRN ×3 (05:53→17:36)
[2023-01-21 07:40] LABS: ANION GAP 6 mmol/L (8-16); CARBON DIOXIDE 29 mmol/L (22-29); CHLORIDE 99 mmol/L (98-107); CREATININE 0.67 mg/dL (0.60-1.30); GLOMERULAR FILTR. RATE CALC > 60 mL/min (>60); GLUCOSE,RANDOM 176 mg/dL (70-110); POTASSIUM 3.7 mmol/L (3.5-5.1); SODIUM SERUM 134 mmol/L (136-145); UREA NITROGEN, BLOOD 10 mg/dL (7-18)
[2023-01-21 07:51] LABS: GLUCOMETER DEV NAME(LOC) 6N.1; GLUCOSE,POINT OF CARE 148 MG/DL (70-110)
[2023-01-21] MEDS: PIOGLITAZONE HCL 30 MG TABLET PO SCH (08:26)
[2023-01-21] MEDS: SERTRALINE HCL 100 MG TABLET PO SCH (08:27)
[2023-01-21] MEDS: HALOPERIDOL 5 MG TABLET PO SCH ×2 (08:27→20:00)
[2023-01-21] MEDS: LISINOPRIL 5 MG TABLET PO SCH (08:27)
[2023-01-21] MEDS: GABAPENTIN 300 MG CAPSULE PO SCH ×3 (08:27→20:01)
[2023-01-21] MEDS: DOXYCYCLINE HYCLATE 100 MG TABLET PO SCH ×2 (08:27→20:00)
[2023-01-21] MEDS: OXcarbazepine 300 MG TABLET PO SCH (08:27)
[2023-01-21] MEDS: HEPARIN SODIUM,PORCINE 5,000 UNITS/ML VIAL SQ SCH ×3 (08:28→23:52)
[2023-01-21] MEDS: HYDROCHLOROTHIAZIDE 25 MG TABLET PO SCH (08:28)
[2023-01-21] MEDS: VANCOMYCIN HCL 1.5 GM in DEXTROSE 5%-WATER 250 ML IV SCH ×2 (08:31→20:00)
[2023-01-21 08:32] VITALS: BP 134/80
[2023-01-21 13:48] VITALS: BP 124/75
[2023-01-21 17:08] VITALS: BP 116/74
[2023-01-21 19:15] VITALS: BP 132/80
[2023-01-21] MEDS: SIMVASTATIN 40 MG TABLET PO SCH (20:00)
[2023-01-21 22:06] LABS: GLUCOMETER DEV NAME(LOC) 6N.1; GLUCOSE,POINT OF CARE 199 MG/DL (70-110)
[2023-01-21 22:07] LABS: GLUCOMETER DEV NAME(LOC) 6N.1; GLUCOSE,POINT OF CARE 160 MG/DL (70-110)
[2023-01-22 04:55] VITALS: BP 109/68
[2023-01-22] MEDS: INSULIN LISPRO 100 UNITS/ML SQ PRN ×4 (05:37→20:10)
[2023-01-22 06:46] LABS: GLUCOMETER DEV NAME(LOC) 6N.1; GLUCOSE,POINT OF CARE 209 MG/DL (70-110)
[2023-01-22 07:29] LABS: ANION GAP 0 mmol/L (8-16); CALCIUM, TOTAL 9.7 mg/dL (8.8-10.5); CARBON DIOXIDE 35 mmol/L (22-29); CHLORIDE 100 mmol/L (98-107); CREATININE 0.83 mg/dL (0.60-1.30); GLOMERULAR FILTR. RATE CALC > 60 mL/min (>60); GLUCOSE,RANDOM 127 mg/dL (70-110); POTASSIUM 4.2 mmol/L (3.5-5.1); SODIUM SERUM 135 mmol/L (136-145); UREA NITROGEN, BLOOD 10 mg/dL (7-18)
[2023-01-22 07:35] VITALS: BP 137/84
[2023-01-22] MEDS: OXcarbazepine 300 MG TABLET PO SCH (08:41)
[2023-01-22] MEDS: LISINOPRIL 5 MG TABLET PO SCH (08:41)
[2023-01-22] MEDS: GABAPENTIN 300 MG CAPSULE PO SCH ×3 (08:41→20:07)
[2023-01-22] MEDS: SERTRALINE HCL 100 MG TABLET PO SCH (08:41)
[2023-01-22] MEDS: HALOPERIDOL 5 MG TABLET PO SCH ×2 (08:42→20:07)
[2023-01-22] MEDS: DOXYCYCLINE HYCLATE 100 MG TABLET PO SCH (08:42)
[2023-01-22] MEDS: HYDROCHLOROTHIAZIDE 25 MG TABLET PO SCH (08:42)
[2023-01-22] MEDS: HEPARIN SODIUM,PORCINE 5,000 UNITS/ML VIAL SQ SCH (08:42)
[2023-01-22] MEDS: VANCOMYCIN HCL 1.5 GM in DEXTROSE 5%-WATER 250 ML IV SCH (08:48)
[2023-01-22] MEDS: PIOGLITAZONE HCL 30 MG TABLET PO SCH (10:20)
[2023-01-22 13:06] LABS: GLUCOMETER DEV NAME(LOC) 6S.1B; GLUCOSE,POINT OF CARE 181 MG/DL (70-110)
[2023-01-22 14:57] VITALS: BP 115/58
[2023-01-22 18:21] LABS: GLUCOMETER DEV NAME(LOC) 6S.1B; GLUCOSE,POINT OF CARE 191 MG/DL (70-110)
[2023-01-22 19:30] VITALS: BP 118/85
[2023-01-22] MEDS: SIMVASTATIN 40 MG TABLET PO SCH (20:07)
[2023-01-22 23:41] LABS: GLUCOMETER DEV NAME(LOC) 6N.1; GLUCOSE,POINT OF CARE 276 MG/DL (70-110)
[2023-01-23 03:50] VITALS: BP 126/88
[2023-01-23] MEDS: INSULIN LISPRO 100 UNITS/ML SQ PRN ×2 (05:47→12:22)
[2023-01-23 07:20] VITALS: BP 119/77
[2023-01-23] MEDS: HALOPERIDOL 5 MG TABLET PO SCH (07:54)
[2023-01-23] MEDS: LISINOPRIL 5 MG TABLET PO SCH (07:54)
[2023-01-23] MEDS: PIOGLITAZONE HCL 30 MG TABLET PO SCH (07:54)
[2023-01-23] MEDS: SERTRALINE HCL 100 MG TABLET PO SCH (07:54)
[2023-01-23] MEDS: HYDROCHLOROTHIAZIDE 25 MG TABLET PO SCH (07:54)
[2023-01-23] MEDS: OXcarbazepine 300 MG TABLET PO SCH (07:55)
[2023-01-23] MEDS: GABAPENTIN 300 MG CAPSULE PO SCH (07:55)
[2023-01-23 08:02] LABS: ANION GAP 4 mmol/L (8-16); CARBON DIOXIDE 30 mmol/L (22-29); CHLORIDE 99 mmol/L (98-107); CREATININE 0.73 mg/dL (0.60-1.30); GLOMERULAR FILTR. RATE CALC > 60 mL/min (>60); GLUCOSE,RANDOM 187 mg/dL (70-110); POTASSIUM 3.8 mmol/L (3.5-5.1); SODIUM SERUM 133 mmol/L (136-145); UREA NITROGEN, BLOOD 11 mg/dL (7-18)
[2023-01-23 09:42] LABS: GLUCOMETER DEV NAME(LOC) 6N.1; GLUCOSE,POINT OF CARE 212 MG/DL (70-110)
[2023-01-23 12:16] LABS: GLUCOMETER DEV NAME(LOC) 6N.1; GLUCOSE,POINT OF CARE 202 MG/DL (70-110)
[2023-02-15] MEDS ORDERED: HALOPERIDOL DECANOATE 100 MG/ML VIAL IM SCH (09:00)
[2023-02-19] MEDS ORDERED: HALOPERIDOL DECANOATE 100 MG/ML VIAL IM SCH (09:00)
== END 2023-01-23 12:35 | disposition home or self-care (01) | DRG 750 ==
LOC: EMS 15:39 → AHU 01-19 10:50 → 6S 01-19 18:08
PROVIDERS: ADMIT Internal Medicine; ATTEND Internal Medicine
DX: F20.9 Schizophrenia, unspecified (principal); D69.6 Thrombocytopenia, unspecified; R45.851 Suicidal ideations; E11.9 Type 2 diabetes mellitus without complications; L03.032 Cellulitis of left toe; I10 Essential (primary) hypertension; Z20.822 Contact with and (suspected) exposure to COVID-19; Z59.00 Homelessness unspecified; Z79.899 Other long term (current) drug therapy; Z78.1 Physical restraint status; Z91.199 Patient's noncompliance with other medical treatment and regimen due to unspecified reason
CPT/HCPCS: 80048; 80053; 80202; 80307; 82962; 85025; 87081; 93005; 99291; G0480; J1200; J1630; J1631; J1644; J2060; J3370; J7040; J7060; J7120

== ENCOUNTER 2023-06-14 19:23 | Inpatient (IN) | payer MEDICAID, OTHER ==
[~2023-06-14] VITALS: Ht 185.4 cm; Wt 96.6 kg
[~2023-06-14 19:23] MED LIST changes: -DOXY-354 PO; +GABA-1181 PO; -HYDR25TA2 PO; -LISI20TA24 PO; +OXCA300T70 PO; +PIOG30TA10 PO; +SERT-162 PO; -SERT-440 PO; -SIMV-259 PO; +SIMV-261 PO; -[UNRECOGNIZED DRUG - OTHER] MISC
[2023-06-14 21:53] LABS: COVID AG,FIA SOURCE NASOPHARYNGEAL
[2023-06-14 22:06] LABS: PH,URINE DRUG SCREEN 6.5 (5.0-8.0)
[2023-06-14 22:12] LABS: AMPHET/METH SCREEN,URINE NEGATIVE (NEGATIVE); BARBITURATE SCREEN, URINE NEGATIVE (NEGATIVE); BENZODIAZEPINES SCREEN,URINE NEGATIVE (NEGATIVE); CANNABINOID SCREEN,URINE NEGATIVE (NEGATIVE); COCAINE SCREEN,URINE NEGATIVE (NEGATIVE); METHADONE SCREEN, URINE NEGATIVE (NEGATIVE); OPIATE SCREEN,URINE NEGATIVE (NEGATIVE); PHENCYCLIDINE SCREEN,URINE NEGATIVE (NEGATIVE)
[2023-06-14 22:16] LABS: SARS-COV2 (COVID) ANTIGEN,FIA Negative (Negative)
[2023-06-14 22:16] LABS: ALCOHOL, URINE DRUG SCREEN NEGATIVE (NEGATIVE)
[2023-06-14 22:18] LABS: BASOPHILS % (AUTO) 0.5 % (0.0-2.0); EOSINOPHILS % (AUTO) 4.6 % (1.0-6.0); HEMOGLOBIN 15.8 g/dL (13.5-17.5); LYMPHOCYTES # (AUTO) 1.7 K/uL (1.0-4.8); LYMPHOCYTES % (AUTO) 23.5 % (22.0-44.0); MEAN CORPUSCULAR HEMOGLOBIN 31.5 pg (26.0-34.0); MEAN CORPUSCULAR HGB CONC 33.7 G/dL (31.0-37.0); MEAN CORPUSCULAR VOLUME 93 fL (80-100); MONOCYTES # (AUTO) 0.7 K/uL (0.1-1.0); MONOCYTES % (AUTO) 8.8 % (2.0-9.0); NEUTROPHILS # (AUTO) 4.6 K/uL (1.8-7.7); NEUTROPHILS % (AUTO) 62.6 % (40.0-70.0); PLATELET COUNT (AUTO) 232 K/uL (150-450); RED BLOOD CELL COUNT(AUTO) 5.03 MIL/uL (4.50-5.90); RED CELL DISTRIBUTION WIDTH 13.3 % (11.5-14.5); WHITE BLOOD COUNT (AUTO) 7.4 K/uL (4.5-11.0)
[2023-06-14 22:27] LABS: ANION GAP 8 mmol/L (8-16); CARBON DIOXIDE 27 mmol/L (22-29); CHLORIDE 100 mmol/L (98-107); CREATININE 0.99 mg/dL (0.60-1.30); GLOMERULAR FILTR. RATE CALC > 60 mL/min (>60); GLUCOSE,RANDOM 171 mg/dL (70-110); POTASSIUM 3.5 mmol/L (3.5-5.1); SODIUM SERUM 135 mmol/L (136-145); UREA NITROGEN, BLOOD 11 mg/dL (7-18)
[2023-06-14 22:33] LABS: ALANINE AMINOTRANSFERASE 14 U/L (12-78); ALBUMIN 3.4 g/dL (3.4-5.0); ALKALINE PHOSPHATASE 91 U/L (46-116); ASPARTATE AMINOTRANSFERASE 13 U/L (15-37); BILIRUBIN,TOTAL 0.7 mg/dL (0.1-1.0); TOTAL PROTEIN, SERUM 6.7 g/dL (6.4-8.2)
[2023-06-14] MEDS ORDERED: LORazepam 2 MG TABLET PO PRN (23:00)
[2023-06-14 23:04] LABS: ALCOHOL, BLOOD (SERUM) < 3 mg/dL (0-10)
[2023-06-15] MEDS ORDERED: DEXTROSE 50%-WATER 25 GM/50 ML SYRINGE IVP PRN (08:45)
[2023-06-15 08:56] LABS: GLUCOMETER DEV NAME(LOC) ER.6; GLUCOSE,POINT OF CARE 389 MG/DL (70-110)
[2023-06-15] MEDS: INSULIN LISPRO 100 UNITS/ML SQ PRN ×2 (09:19→17:25)
[2023-06-15 10:26] LABS: GLUCOMETER DEV NAME(LOC) ER.6; GLUCOSE,POINT OF CARE 265 MG/DL (70-110)
[2023-06-15] MEDS ORDERED: DiphenhydrAMINE HCL 25 MG CAPSULE PO ONE (19:00)
[2023-06-15] MEDS ORDERED: LORazepam 2 MG TABLET PO ONE (19:00)
[2023-06-15] MEDS ORDERED: HALOPERIDOL 5 MG TABLET PO ONE (19:00)
[2023-06-16 00:20] VITALS: BP 94/68; PULSE 66; RESP 18; TEMP 97.3; O2SAT 99
[2023-06-16 01:01] LABS: GLUCOMETER DEV NAME(LOC) BV2S.; GLUCOSE,POINT OF CARE 222 MG/DL (70-110)
[2023-06-16] MEDS ORDERED: BENZOCAINE/MENTHOL LOZENGE PO PRN (07:15)
[2023-06-16] MEDS ORDERED: CloNIDine HCL 0.1 MG TABLET PO PRN (07:15)
[2023-06-16] MEDS ORDERED: GLUCAGON,HUMAN RECOMBINANT 1 MG VIAL IM PRN (07:15)
[2023-06-16] MEDS ORDERED: DOCUSATE SODIUM 100 MG CAPSULE PO PRN (07:15)
[2023-06-16] MEDS ORDERED: PETROLATUM,WHITE 28 GM JELLY TP PRN (07:15)
[2023-06-16] MEDS ORDERED: MAGNESIUM HYDROXIDE SUSPENSION 30 ML UDCUP PO PRN (07:15)
[2023-06-16] MEDS ORDERED: LOPERAMIDE HCL 2 MG CAPSULE PO PRN (07:15)
[2023-06-16] MEDS ORDERED: BACITRACIN 28 GM OINTMENT TP PRN (07:15)
[2023-06-16] MEDS ORDERED: MAG HYDROX/ALUMINUM HYD/SIMETH ES 30 ML SUSPENSION UDCUP PO PRN (07:15)
[2023-06-16] MEDS ORDERED: ALBUTEROL SULFATE HFA 90 MCG/PUFF 8 GM INHALER IH PRN (07:15)
[2023-06-16] MEDS ORDERED: ONDANSETRON HCL 4 MG TABLET PO PRN (07:15)
[2023-06-16] MEDS ORDERED: OMEPRAZOLE 20 MG CAPSULE PO PRN (07:15)
[2023-06-16] MEDS ORDERED: IBUPROFEN 600 MG TABLET PO PRN (07:15)
[2023-06-16] MEDS ORDERED: ACETAMINOPHEN 325 MG TABLET PO PRN (07:15)
[2023-06-16] MEDS: HALOPERIDOL 5 MG TABLET PO PRN ×3 (08:23→20:25)
[2023-06-16] MEDS: GABAPENTIN 300 MG CAPSULE PO SCH ×3 (08:23→16:42)
[2023-06-16 08:27] VITALS: RESP 18
[2023-06-16] MEDS: INSULIN LISPRO 100 UNITS/ML SQ PRN ×3 (11:13→20:24)
[2023-06-16 11:26] LABS: GLUCOMETER DEV NAME(LOC) BV2S.; GLUCOSE,POINT OF CARE 263 MG/DL (70-110)
[2023-06-16] MEDS: LORazepam 1 MG TABLET PO PRN ×2 (13:26→20:25)
[2023-06-16 16:31] LABS: GLUCOMETER DEV NAME(LOC) BV2S.; GLUCOSE,POINT OF CARE 131 MG/DL (70-110)
[2023-06-16] MEDS: MetFORMIN HCL 500 MG TABLET PO SCH (16:42)
[2023-06-16] MEDS: PIOGLITAZONE HCL 30 MG TABLET PO SCH (16:42)
[2023-06-16 20:13] VITALS: BP 103/77; PULSE 81; RESP 17; TEMP 97.3; O2SAT 94
[2023-06-16] MEDS: SIMVASTATIN 40 MG TABLET PO SCH (20:16)
[2023-06-16 22:56] LABS: GLUCOMETER DEV NAME(LOC) BV2S.; GLUCOSE,POINT OF CARE 197 MG/DL (70-110)
[2023-06-17 06:16] LABS: GLUCOMETER DEV NAME(LOC) BV2S.; GLUCOSE,POINT OF CARE 170 MG/DL (70-110)
[2023-06-17] MEDS: MetFORMIN HCL 500 MG TABLET PO SCH ×2 (06:50→17:07)
[2023-06-17] MEDS: INSULIN LISPRO 100 UNITS/ML SQ PRN ×4 (06:52→20:59)
[2023-06-17 09:06] VITALS: BP 122/94; PULSE 87; RESP 20; TEMP 97.1; O2SAT 98
[2023-06-17] MEDS: PIOGLITAZONE HCL 30 MG TABLET PO SCH (09:11)
[2023-06-17] MEDS: GABAPENTIN 300 MG CAPSULE PO SCH ×3 (09:11→17:07)
[2023-06-17] MEDS: LORazepam 1 MG TABLET PO PRN ×2 (10:44→17:20)
[2023-06-17] MEDS: HALOPERIDOL 5 MG TABLET PO PRN ×2 (10:44→17:20)
[2023-06-17 12:26] LABS: GLUCOMETER DEV NAME(LOC) BV2S.; GLUCOSE,POINT OF CARE 196 MG/DL (70-110)
[2023-06-17 16:56] LABS: GLUCOMETER DEV NAME(LOC) BV2S.; GLUCOSE,POINT OF CARE 221 MG/DL (70-110)
[2023-06-17] MEDS: SIMVASTATIN 40 MG TABLET PO SCH (20:24)
[2023-06-17 20:28] VITALS: BP 126/82; PULSE 90; RESP 18; TEMP 97.8; O2SAT 97
[2023-06-17 21:01] LABS: GLUCOMETER DEV NAME(LOC) BV3N.; GLUCOSE,POINT OF CARE 167 MG/DL (70-110)
[2023-06-17 21:01] LABS: GLUCOMETER DEV NAME(LOC) BV3N.; GLUCOSE,POINT OF CARE 133 MG/DL (70-110)
[2023-06-18 05:41] LABS: GLUCOMETER DEV NAME(LOC) BV3N.; GLUCOSE,POINT OF CARE 141 MG/DL (70-110)
[2023-06-18] MEDS: MetFORMIN HCL 500 MG TABLET PO SCH ×2 (06:08→16:47)
[2023-06-18] MEDS: INSULIN LISPRO 100 UNITS/ML SQ PRN ×4 (06:10→20:27)
[2023-06-18] MEDS: PIOGLITAZONE HCL 30 MG TABLET PO SCH (08:06)
[2023-06-18] MEDS: GABAPENTIN 300 MG CAPSULE PO SCH ×3 (08:06→16:47)
[2023-06-18] MEDS: LORazepam 1 MG TABLET PO PRN ×2 (08:06→20:21)
[2023-06-18] MEDS: HALOPERIDOL 5 MG TABLET PO PRN ×2 (08:06→20:21)
[2023-06-18 08:08] VITALS: BP 135/70; PULSE 75; RESP 19; TEMP 98.2; O2SAT 98
[2023-06-18] MEDS ORDERED: DiphenhydrAMINE HCL 50 MG/ML VIAL ONE (10:44)
[2023-06-18] MEDS ORDERED: LORazepam 2 MG/ML VIAL ONE (10:44)
[2023-06-18] MEDS ORDERED: HALOPERIDOL LACTATE 5 MG/ML VIAL ONE (10:44)
[2023-06-18] MEDS ORDERED: HALOPERIDOL LACTATE 5 MG/ML VIAL IM ONE (11:00)
[2023-06-18] MEDS ORDERED: LORazepam 2 MG/ML VIAL IM ONE (11:00)
[2023-06-18] MEDS ORDERED: DiphenhydrAMINE HCL 50 MG/ML VIAL IM ONE (11:00)
[2023-06-18 11:31] LABS: GLUCOMETER DEV NAME(LOC) BV3N.; GLUCOSE,POINT OF CARE 224 MG/DL (70-110)
[2023-06-18] MEDS ORDERED: HALOPERIDOL DECANOATE 100 MG/ML VIAL IM SCH (14:05)
[2023-06-18 17:01] LABS: GLUCOMETER DEV NAME(LOC) BV3N.; GLUCOSE,POINT OF CARE 174 MG/DL (70-110)
[2023-06-18 20:10] VITALS: BP 124/64; PULSE 66; RESP 18; TEMP 97.9; O2SAT 97
[2023-06-18] MEDS: SIMVASTATIN 40 MG TABLET PO SCH (20:21)
[2023-06-18 21:01] LABS: GLUCOMETER DEV NAME(LOC) BV3N.; GLUCOSE,POINT OF CARE 224 MG/DL (70-110)
[2023-06-19] MEDS: LORazepam 1 MG TABLET PO PRN ×3 (05:38→20:44)
[2023-06-19] MEDS: HALOPERIDOL 5 MG TABLET PO PRN ×2 (05:39→16:41)
[2023-06-19 06:12] LABS: GLUCOMETER DEV NAME(LOC) BV3N.; GLUCOSE,POINT OF CARE 241 MG/DL (70-110)
[2023-06-19] MEDS: INSULIN LISPRO 100 UNITS/ML SQ PRN ×3 (06:34→20:29)
[2023-06-19] MEDS: MetFORMIN HCL 500 MG TABLET PO SCH ×2 (06:35→16:40)
[2023-06-19 08:16] VITALS: BP 129/64; PULSE 78; RESP 18; TEMP 97; O2SAT 98
[2023-06-19] MEDS: PIOGLITAZONE HCL 30 MG TABLET PO SCH (08:27)
[2023-06-19] MEDS: GABAPENTIN 300 MG CAPSULE PO SCH ×3 (08:27→16:41)
[2023-06-19] MEDS: HALOPERIDOL DECANOATE 100 MG/ML VIAL IM SCH (08:31)
[2023-06-19 11:51] LABS: GLUCOMETER DEV NAME(LOC) BV3N.; GLUCOSE,POINT OF CARE 132 MG/DL (70-110)
[2023-06-19 17:06] LABS: GLUCOMETER DEV NAME(LOC) BV3N.; GLUCOSE,POINT OF CARE 177 MG/DL (70-110)
[2023-06-19] MEDS: SIMVASTATIN 40 MG TABLET PO SCH (20:35)
[2023-06-19] MEDS: ZOLPIDEM TARTRATE 10 MG TABLET PO PRN (20:44)
[2023-06-19 20:46] LABS: GLUCOMETER DEV NAME(LOC) BV3N.; GLUCOSE,POINT OF CARE 224 MG/DL (70-110)
[2023-06-19 21:14] VITALS: BP 136/72; PULSE 85; RESP 18; TEMP 97.8
[2023-06-20 06:36] LABS: GLUCOMETER DEV NAME(LOC) BV3N.; GLUCOSE,POINT OF CARE 176 MG/DL (70-110)
[2023-06-20] MEDS: MetFORMIN HCL 500 MG TABLET PO SCH ×2 (06:37→17:13)
[2023-06-20] MEDS: INSULIN LISPRO 100 UNITS/ML SQ PRN ×3 (06:40→21:13)
[2023-06-20] MEDS: GABAPENTIN 300 MG CAPSULE PO SCH ×3 (08:15→17:12)
[2023-06-20] MEDS: PIOGLITAZONE HCL 30 MG TABLET PO SCH (08:15)
[2023-06-20 08:33] VITALS: BP 123/82; PULSE 92; RESP 17; TEMP 97.6; O2SAT 96
[2023-06-20 17:06] LABS: GLUCOMETER DEV NAME(LOC) BV3N.; GLUCOSE,POINT OF CARE 210 MG/DL (70-110)
[2023-06-20] MEDS: LORazepam 1 MG TABLET PO PRN ×2 (17:14→21:14)
[2023-06-20] MEDS: HALOPERIDOL 5 MG TABLET PO PRN ×2 (17:14→21:14)
[2023-06-20 20:16] VITALS: BP 130/82; PULSE 87; RESP 18; TEMP 97.8; O2SAT 97
[2023-06-20 20:46] LABS: GLUCOMETER DEV NAME(LOC) BV3N.; GLUCOSE,POINT OF CARE 205 MG/DL (70-110)
[2023-06-20] MEDS: SIMVASTATIN 40 MG TABLET PO SCH (21:10)
[2023-06-20] MEDS: ZOLPIDEM TARTRATE 10 MG TABLET PO PRN (21:14)
[2023-06-21 05:46] LABS: GLUCOMETER DEV NAME(LOC) BV3N.; GLUCOSE,POINT OF CARE 169 MG/DL (70-110)
[2023-06-21] MEDS: MetFORMIN HCL 500 MG TABLET PO SCH ×2 (06:14→16:49)
[2023-06-21] MEDS: INSULIN LISPRO 100 UNITS/ML SQ PRN ×3 (06:16→16:50)
[2023-06-21 08:32] VITALS: BP 123/82; PULSE 82; RESP 18; TEMP 97.3; O2SAT 95
[2023-06-21] MEDS: PIOGLITAZONE HCL 30 MG TABLET PO SCH (08:47)
[2023-06-21] MEDS: GABAPENTIN 300 MG CAPSULE PO SCH ×3 (08:47→16:49)
[2023-06-21] MEDS: HALOPERIDOL 5 MG TABLET PO PRN ×3 (08:48→16:49)
[2023-06-21] MEDS: LORazepam 1 MG TABLET PO PRN ×3 (08:48→16:49)
[2023-06-21 11:47] LABS: GLUCOMETER DEV NAME(LOC) BV3N.; GLUCOSE,POINT OF CARE 215 MG/DL (70-110)
[2023-06-21 20:19] VITALS: BP 110/77; PULSE 80; RESP 19; TEMP 97.7; O2SAT 98
[2023-06-21] MEDS: SIMVASTATIN 40 MG TABLET PO SCH (21:23)
[2023-06-22 03:06] LABS: GLUCOMETER DEV NAME(LOC) BV3N.; GLUCOSE,POINT OF CARE 244 MG/DL (70-110)
[2023-06-22 06:21] LABS: GLUCOMETER DEV NAME(LOC) BV3N.; GLUCOSE,POINT OF CARE 191 MG/DL (70-110)
[2023-06-22] MEDS: MetFORMIN HCL 500 MG TABLET PO SCH ×2 (06:37→17:04)
[2023-06-22] MEDS: INSULIN LISPRO 100 UNITS/ML SQ PRN ×4 (06:42→21:12)
[2023-06-22 08:30] VITALS: BP 140/76; PULSE 89; RESP 20; TEMP 98.2; O2SAT 99
[2023-06-22] MEDS: PIOGLITAZONE HCL 30 MG TABLET PO SCH (09:37)
[2023-06-22] MEDS: HALOPERIDOL 5 MG TABLET PO PRN ×3 (09:37→17:54)
[2023-06-22] MEDS: GABAPENTIN 300 MG CAPSULE PO SCH ×3 (09:37→17:04)
[2023-06-22] MEDS: LORazepam 1 MG TABLET PO PRN ×3 (09:37→17:54)
[2023-06-22 12:25] LABS: GLUCOMETER DEV NAME(LOC) BV3N.; GLUCOSE,POINT OF CARE 190 MG/DL (70-110)
[2023-06-22 17:16] LABS: GLUCOMETER DEV NAME(LOC) BV3N.; GLUCOSE,POINT OF CARE 242 MG/DL (70-110)
[2023-06-22 20:24] VITALS: BP 126/89; PULSE 79; RESP 18; TEMP 98.1; O2SAT 97
[2023-06-22] MEDS: SIMVASTATIN 40 MG TABLET PO SCH (20:37)
[2023-06-22 21:21] LABS: GLUCOMETER DEV NAME(LOC) BV3N.; GLUCOSE,POINT OF CARE 198 MG/DL (70-110)
[2023-06-23] MEDS: MetFORMIN HCL 500 MG TABLET PO SCH ×2 (06:22→16:55)
[2023-06-23 06:26] LABS: GLUCOMETER DEV NAME(LOC) BV3N.; GLUCOSE,POINT OF CARE 166 MG/DL (70-110)
[2023-06-23] MEDS: INSULIN LISPRO 100 UNITS/ML SQ PRN ×4 (06:30→21:11)
[2023-06-23] MEDS: GABAPENTIN 300 MG CAPSULE PO SCH ×3 (08:32→16:55)
[2023-06-23] MEDS: PIOGLITAZONE HCL 30 MG TABLET PO SCH (08:32)
[2023-06-23 11:51] LABS: GLUCOMETER DEV NAME(LOC) BV3N.; GLUCOSE,POINT OF CARE 183 MG/DL (70-110)
[2023-06-23 14:49] VITALS: BP 122/82; PULSE 85; RESP 18; TEMP 97.2; O2SAT 98
[2023-06-23 16:46] LABS: GLUCOMETER DEV NAME(LOC) BV3N.; GLUCOSE,POINT OF CARE 225 MG/DL (70-110)
[2023-06-23 20:10] VITALS: BP 152/84; PULSE 90; RESP 17; TEMP 97.7; O2SAT 98
[2023-06-23] MEDS: SIMVASTATIN 40 MG TABLET PO SCH (20:52)
[2023-06-23 21:16] LABS: GLUCOMETER DEV NAME(LOC) BV3N.; GLUCOSE,POINT OF CARE 190 MG/DL (70-110)
[2023-06-24] MEDS: MetFORMIN HCL 500 MG TABLET PO SCH ×2 (06:05→17:20)
[2023-06-24] MEDS: INSULIN LISPRO 100 UNITS/ML SQ PRN ×4 (06:16→21:46)
[2023-06-24 06:27] LABS: GLUCOMETER DEV NAME(LOC) BV3N.; GLUCOSE,POINT OF CARE 168 MG/DL (70-110)
[2023-06-24 08:17] VITALS: BP 141/89; PULSE 83; RESP 20; TEMP 97; O2SAT 96
[2023-06-24] MEDS: GABAPENTIN 300 MG CAPSULE PO SCH ×3 (08:23→17:19)
[2023-06-24] MEDS: PIOGLITAZONE HCL 30 MG TABLET PO SCH (08:23)
[2023-06-24 11:46] LABS: GLUCOMETER DEV NAME(LOC) BV3N.; GLUCOSE,POINT OF CARE 202 MG/DL (70-110)
[2023-06-24 17:11] LABS: GLUCOMETER DEV NAME(LOC) BV3N.; GLUCOSE,POINT OF CARE 238 MG/DL (70-110)
[2023-06-24] MEDS: HALOPERIDOL 5 MG TABLET PO PRN (17:20)
[2023-06-24] MEDS: LORazepam 1 MG TABLET PO PRN (17:21)
[2023-06-24 20:15] VITALS: BP 142/79; PULSE 83; RESP 20; TEMP 98; O2SAT 97
[2023-06-24] MEDS: SIMVASTATIN 40 MG TABLET PO SCH (21:41)
[2023-06-24] MEDS: ZOLPIDEM TARTRATE 10 MG TABLET PO PRN (21:41)
[2023-06-24 22:01] LABS: GLUCOMETER DEV NAME(LOC) BV3N.; GLUCOSE,POINT OF CARE 234 MG/DL (70-110)
[2023-06-25] MEDS: LORazepam 1 MG TABLET PO PRN ×3 (03:55→21:04)
[2023-06-25 06:42] LABS: GLUCOMETER DEV NAME(LOC) BV3N.; GLUCOSE,POINT OF CARE 175 MG/DL (70-110)
[2023-06-25] MEDS: MetFORMIN HCL 500 MG TABLET PO SCH ×2 (06:52→16:36)
[2023-06-25] MEDS: INSULIN LISPRO 100 UNITS/ML SQ PRN ×3 (06:55→21:07)
[2023-06-25] MEDS: GABAPENTIN 300 MG CAPSULE PO SCH ×3 (08:06→16:36)
[2023-06-25] MEDS: PIOGLITAZONE HCL 30 MG TABLET PO SCH (08:06)
[2023-06-25 08:34] VITALS: BP 120/79; PULSE 91; RESP 17; TEMP 98.2; O2SAT 95
[2023-06-25] MEDS: HALOPERIDOL 5 MG TABLET PO PRN ×2 (16:36→21:04)
[2023-06-25 16:46] LABS: GLUCOMETER DEV NAME(LOC) BV3N.; GLUCOSE,POINT OF CARE 308 MG/DL (70-110)
[2023-06-25 20:46] LABS: GLUCOMETER DEV NAME(LOC) BV3N.; GLUCOSE,POINT OF CARE 209 MG/DL (70-110)
[2023-06-25] MEDS: SIMVASTATIN 40 MG TABLET PO SCH (21:04)
[2023-06-26 02:06] VITALS: BP 109/73; PULSE 82; RESP 17; TEMP 98.2; O2SAT 97
[2023-06-26] MEDS: MetFORMIN HCL 500 MG TABLET PO SCH ×2 (06:46→16:44)
[2023-06-26] MEDS: INSULIN LISPRO 100 UNITS/ML SQ PRN ×3 (06:47→16:47)
[2023-06-26 06:56] LABS: GLUCOMETER DEV NAME(LOC) BV3N.; GLUCOSE,POINT OF CARE 185 MG/DL (70-110)
[2023-06-26] MEDS: GABAPENTIN 300 MG CAPSULE PO SCH ×3 (08:04→16:44)
[2023-06-26] MEDS: PIOGLITAZONE HCL 30 MG TABLET PO SCH (08:04)
[2023-06-26 08:15] VITALS: BP 133/98; PULSE 89; RESP 17; TEMP 97.7; O2SAT 99
[2023-06-26 12:01] LABS: GLUCOMETER DEV NAME(LOC) BV3N.; GLUCOSE,POINT OF CARE 136 MG/DL (70-110)
[2023-06-26] MEDS: LORazepam 1 MG TABLET PO PRN ×2 (16:06→21:11)
[2023-06-26] MEDS: HALOPERIDOL 5 MG TABLET PO PRN ×2 (16:06→21:11)
[2023-06-26 17:47] LABS: GLUCOMETER DEV NAME(LOC) BV3N.; GLUCOSE,POINT OF CARE 250 MG/DL (70-110)
[2023-06-26 20:00] VITALS: BP 136/86; PULSE 87; RESP 18; TEMP 98
[2023-06-26] MEDS: SIMVASTATIN 40 MG TABLET PO SCH (21:10)
[2023-06-27 05:56] LABS: GLUCOMETER DEV NAME(LOC) BV3N.; GLUCOSE,POINT OF CARE 164 MG/DL (70-110)
[2023-06-27] MEDS: MetFORMIN HCL 500 MG TABLET PO SCH ×2 (06:43→16:54)
[2023-06-27] MEDS: INSULIN LISPRO 100 UNITS/ML SQ PRN ×3 (06:49→20:59)
[2023-06-27] MEDS: PIOGLITAZONE HCL 30 MG TABLET PO SCH (08:05)
[2023-06-27] MEDS: GABAPENTIN 300 MG CAPSULE PO SCH ×3 (08:05→16:54)
[2023-06-27 08:22] VITALS: BP 124/84; PULSE 100; RESP 17; TEMP 97.9; O2SAT 97
[2023-06-27] MEDS: HALOPERIDOL 5 MG TABLET PO PRN ×2 (16:54→20:57)
[2023-06-27] MEDS: LORazepam 1 MG TABLET PO PRN ×2 (16:54→20:57)
[2023-06-27 17:11] LABS: GLUCOMETER DEV NAME(LOC) BV3N.; GLUCOSE,POINT OF CARE 273 MG/DL (70-110)
[2023-06-27 20:06] VITALS: BP 123/77; PULSE 82; RESP 18; TEMP 97.8; O2SAT 97
[2023-06-27] MEDS: SIMVASTATIN 40 MG TABLET PO SCH (20:56)
[2023-06-27] MEDS: CARBAMIDE PEROXIDE 6.5% 15 ML OTIC SOLUTION AU SCH (20:56)
[2023-06-27 21:02] LABS: GLUCOMETER DEV NAME(LOC) BV3N.; GLUCOSE,POINT OF CARE 217 MG/DL (70-110)
[2023-06-28 06:26] LABS: GLUCOMETER DEV NAME(LOC) BV3N.; GLUCOSE,POINT OF CARE 188 MG/DL (70-110)
[2023-06-28] MEDS: INSULIN LISPRO 100 UNITS/ML SQ PRN (06:33)
[2023-06-28] MEDS: MetFORMIN HCL 500 MG TABLET PO SCH ×2 (06:35→18:48)
[2023-06-28 08:28] VITALS: BP 136/84; PULSE 77; RESP 18; TEMP 97.2; O2SAT 98
[2023-06-28] MEDS: LORazepam 1 MG TABLET PO PRN (08:55)
[2023-06-28] MEDS: GABAPENTIN 300 MG CAPSULE PO SCH ×3 (08:55→18:48)
[2023-06-28] MEDS: PIOGLITAZONE HCL 30 MG TABLET PO SCH (08:55)
[2023-06-28] MEDS: HALOPERIDOL 5 MG TABLET PO PRN (08:55)
[2023-06-28] MEDS ORDERED: HALOPERIDOL LACTATE 5 MG/ML VIAL ONE (10:53)
[2023-06-28] MEDS ORDERED: LORazepam 2 MG/ML VIAL ONE (10:53)
[2023-06-28] MEDS ORDERED: HALOPERIDOL LACTATE 5 MG/ML VIAL IM ONE ×2 (11:00→19:45)
[2023-06-28] MEDS ORDERED: LORazepam 2 MG/ML VIAL IM ONE ×2 (11:00→19:45)
[2023-06-28] MEDS ORDERED: DiphenhydrAMINE HCL 50 MG/ML VIAL ONE (19:42)
[2023-06-28] MEDS ORDERED: DiphenhydrAMINE HCL 50 MG/ML VIAL IM ONE (19:45)
[2023-06-28] MEDS: CARBAMIDE PEROXIDE 6.5% 15 ML OTIC SOLUTION AU SCH (21:00)
[2023-06-28] MEDS: SIMVASTATIN 40 MG TABLET PO SCH (21:00)
[2023-06-28 21:12] VITALS: BP 139/78; PULSE 78; RESP 18; TEMP 98.2; O2SAT 94
[2023-06-29] MEDS: MetFORMIN HCL 500 MG TABLET PO SCH ×2 (06:46→16:56)
[2023-06-29] MEDS: INSULIN LISPRO 100 UNITS/ML SQ PRN ×2 (06:50→17:05)
[2023-06-29 06:52] LABS: GLUCOMETER DEV NAME(LOC) BV3N.; GLUCOSE,POINT OF CARE 162 MG/DL (70-110)
[2023-06-29 08:18] VITALS: BP 140/81; PULSE 89; RESP 19; TEMP 97.8; O2SAT 98
[2023-06-29] MEDS: PIOGLITAZONE HCL 30 MG TABLET PO SCH (09:57)
[2023-06-29] MEDS: LORazepam 1 MG TABLET PO PRN ×3 (09:57→21:06)
[2023-06-29] MEDS: HALOPERIDOL 5 MG TABLET PO PRN ×3 (09:57→21:06)
[2023-06-29] MEDS: GABAPENTIN 300 MG CAPSULE PO SCH ×3 (09:57→16:55)
[2023-06-29 17:00] LABS: GLUCOMETER DEV NAME(LOC) BV3N.; GLUCOSE,POINT OF CARE 325 MG/DL (70-110)
[2023-06-29 20:10] VITALS: BP 140/86; PULSE 91; RESP 20; TEMP 97.8; O2SAT 97
[2023-06-29] MEDS: SIMVASTATIN 40 MG TABLET PO SCH (21:06)
[2023-06-29] MEDS: CARBAMIDE PEROXIDE 6.5% 15 ML OTIC SOLUTION AU SCH (21:06)
[2023-06-30 06:26] LABS: GLUCOMETER DEV NAME(LOC) BV3N.; GLUCOSE,POINT OF CARE 284 MG/DL (70-110)
[2023-06-30] MEDS: MetFORMIN HCL 500 MG TABLET PO SCH ×2 (06:45→16:18)
[2023-06-30] MEDS: INSULIN LISPRO 100 UNITS/ML SQ PRN ×2 (06:58→16:23)
[2023-06-30] MEDS: LORazepam 1 MG TABLET PO PRN ×3 (08:08→20:39)
[2023-06-30] MEDS: GABAPENTIN 300 MG CAPSULE PO SCH ×3 (08:08→16:18)
[2023-06-30] MEDS: PIOGLITAZONE HCL 30 MG TABLET PO SCH (08:08)
[2023-06-30] MEDS: HALOPERIDOL 5 MG TABLET PO PRN ×3 (08:08→20:39)
[2023-06-30 08:09] VITALS: BP 124/79; PULSE 99; RESP 17; TEMP 98; O2SAT 97
[2023-06-30 16:46] LABS: GLUCOMETER DEV NAME(LOC) BV3N.; GLUCOSE,POINT OF CARE 174 MG/DL (70-110)
[2023-06-30 20:16] VITALS: BP 118/64; PULSE 104; RESP 20; TEMP 98.2; O2SAT 97
[2023-06-30] MEDS: SIMVASTATIN 40 MG TABLET PO SCH (20:38)
[2023-06-30] MEDS: CARBAMIDE PEROXIDE 6.5% 15 ML OTIC SOLUTION AU SCH (20:38)
[2023-07-01] MEDS: MetFORMIN HCL 500 MG TABLET PO SCH ×2 (06:19→16:14)
[2023-07-01 06:21] LABS: GLUCOMETER DEV NAME(LOC) BV3N.; GLUCOSE,POINT OF CARE 262 MG/DL (70-110)
[2023-07-01] MEDS: INSULIN LISPRO 100 UNITS/ML SQ PRN ×3 (06:27→21:07)
[2023-07-01] MEDS: PIOGLITAZONE HCL 30 MG TABLET PO SCH (08:11)
[2023-07-01] MEDS: LORazepam 1 MG TABLET PO PRN ×3 (08:11→21:06)
[2023-07-01] MEDS: HALOPERIDOL 5 MG TABLET PO PRN ×3 (08:11→21:06)
[2023-07-01] MEDS: GABAPENTIN 300 MG CAPSULE PO SCH ×3 (08:11→16:13)
[2023-07-01 08:37] VITALS: BP 122/68; PULSE 88; RESP 16; TEMP 98; O2SAT 98
[2023-07-01] MEDS: SULFAMETHOX/TRIMETH DS 800-160 MG/TABLET PO SCH ×2 (10:40→16:14)
[2023-07-01 17:01] LABS: GLUCOMETER DEV NAME(LOC) BV3N.; GLUCOSE,POINT OF CARE 298 MG/DL (70-110)
[2023-07-01 20:19] VITALS: BP 116/76; PULSE 80; RESP 19; TEMP 98; O2SAT 98
[2023-07-01] MEDS: CARBAMIDE PEROXIDE 6.5% 15 ML OTIC SOLUTION AU SCH (21:05)
[2023-07-01] MEDS: SIMVASTATIN 40 MG TABLET PO SCH (21:06)
[2023-07-01 22:01] LABS: GLUCOMETER DEV NAME(LOC) BV3N.; GLUCOSE,POINT OF CARE 220 MG/DL (70-110)
[2023-07-02 06:35] LABS: GLUCOMETER DEV NAME(LOC) BV3N.; GLUCOSE,POINT OF CARE 177 MG/DL (70-110)
[2023-07-02] MEDS: MetFORMIN HCL 500 MG TABLET PO SCH ×2 (06:35→16:39)
[2023-07-02] MEDS: INSULIN LISPRO 100 UNITS/ML SQ PRN ×3 (06:42→21:04)
[2023-07-02 08:16] VITALS: BP 136/67; PULSE 77; RESP 23; TEMP 98; O2SAT 98
[2023-07-02] MEDS: GABAPENTIN 300 MG CAPSULE PO SCH ×3 (08:39→16:39)
[2023-07-02] MEDS: SULFAMETHOX/TRIMETH DS 800-160 MG/TABLET PO SCH ×2 (08:39→16:39)
[2023-07-02] MEDS: PIOGLITAZONE HCL 30 MG TABLET PO SCH (08:40)
[2023-07-02] MEDS: LORazepam 1 MG TABLET PO PRN ×3 (08:40→20:41)
[2023-07-02] MEDS: HALOPERIDOL 5 MG TABLET PO PRN ×3 (08:40→20:41)
[2023-07-02 16:21] LABS: GLUCOMETER DEV NAME(LOC) POC.BV; POC SARS-COV2 AG, FIA NEGATIVE (NEGATIVE)
[2023-07-02 17:16] LABS: GLUCOMETER DEV NAME(LOC) BV3N.; GLUCOSE,POINT OF CARE 317 MG/DL (70-110)
[2023-07-02 20:19] VITALS: BP 146/82; PULSE 79; RESP 20; TEMP 98.1; O2SAT 96
[2023-07-02] MEDS: SIMVASTATIN 40 MG TABLET PO SCH (20:41)
[2023-07-02 21:10] LABS: GLUCOMETER DEV NAME(LOC) BV3N.; GLUCOSE,POINT OF CARE 160 MG/DL (70-110)
[2023-07-03] VITALS (7 sets, daily range): BP systolic 143–145; BP diastolic 79–89; PULSE 77–86; RESP 18–19; TEMP 97.4–98.3; O2SAT 96–99
[2023-07-03 06:11] LABS: GLUCOMETER DEV NAME(LOC) BV3N.; GLUCOSE,POINT OF CARE 188 MG/DL (70-110)
[2023-07-03] MEDS: MetFORMIN HCL 500 MG TABLET PO SCH ×2 (06:34→16:18)
[2023-07-03] MEDS: INSULIN LISPRO 100 UNITS/ML SQ PRN ×4 (06:41→20:57)
[2023-07-03] MEDS: PIOGLITAZONE HCL 30 MG TABLET PO SCH (08:33)
[2023-07-03] MEDS: SULFAMETHOX/TRIMETH DS 800-160 MG/TABLET PO SCH ×2 (08:34→16:18)
[2023-07-03] MEDS: GABAPENTIN 300 MG CAPSULE PO SCH ×3 (08:34→16:18)
[2023-07-03 11:26] LABS: GLUCOMETER DEV NAME(LOC) BV3N.; GLUCOSE,POINT OF CARE 259 MG/DL (70-110)
[2023-07-03] MEDS: LORazepam 1 MG TABLET PO PRN ×3 (12:32→20:56)
[2023-07-03] MEDS: HALOPERIDOL 5 MG TABLET PO PRN ×2 (16:18→20:56)
[2023-07-03 16:35] LABS: GLUCOMETER DEV NAME(LOC) BV3N.; GLUCOSE,POINT OF CARE 245 MG/DL (70-110)
[2023-07-03] MEDS: SIMVASTATIN 40 MG TABLET PO SCH (20:55)
[2023-07-03 21:11] LABS: GLUCOMETER DEV NAME(LOC) BV3N.; GLUCOSE,POINT OF CARE 228 MG/DL (70-110)
[2023-07-04] VITALS (7 sets, daily range): BP systolic 130–141; BP diastolic 82–84; PULSE 81–90; RESP 17–19; TEMP 97.7–98.4; O2SAT 97–99
[2023-07-04] MEDS: MetFORMIN HCL 500 MG TABLET PO SCH ×2 (06:36→16:52)
[2023-07-04] MEDS: PIOGLITAZONE HCL 30 MG TABLET PO SCH (08:41)
[2023-07-04] MEDS: LORazepam 1 MG TABLET PO PRN ×3 (08:42→20:52)
[2023-07-04] MEDS: SULFAMETHOX/TRIMETH DS 800-160 MG/TABLET PO SCH ×2 (08:42→16:52)
[2023-07-04] MEDS: GABAPENTIN 300 MG CAPSULE PO SCH ×3 (08:42→16:52)
[2023-07-04] MEDS: HALOPERIDOL 5 MG TABLET PO PRN ×3 (08:42→20:52)
[2023-07-04 14:41] LABS: GLUCOMETER DEV NAME(LOC) BV3N.; GLUCOSE,POINT OF CARE 215 MG/DL (70-110)
[2023-07-04] MEDS: INSULIN LISPRO 100 UNITS/ML SQ PRN ×2 (16:55→20:54)
[2023-07-04 17:31] LABS: GLUCOMETER DEV NAME(LOC) BV3N.; GLUCOSE,POINT OF CARE 222 MG/DL (70-110)
[2023-07-04 20:51] LABS: GLUCOMETER DEV NAME(LOC) BV3N.; GLUCOSE,POINT OF CARE 210 MG/DL (70-110)
[2023-07-04] MEDS: SIMVASTATIN 40 MG TABLET PO SCH (20:52)
[2023-07-05] VITALS (8 sets, daily range): BP systolic 106–128; BP diastolic 60–80; PULSE 77–92; RESP 18–20; TEMP 97.9–98.7; O2SAT 97–99
[2023-07-05 03:42] LABS: GLUCOMETER DEV NAME(LOC) POC.BV; POC SARS-COV2 AG, FIA NEGATIVE (NEGATIVE)
[2023-07-05 06:32] LABS: GLUCOMETER DEV NAME(LOC) BV3N.; GLUCOSE,POINT OF CARE 232 MG/DL (70-110)
[2023-07-05] MEDS: MetFORMIN HCL 500 MG TABLET PO SCH ×2 (06:35→16:47)
[2023-07-05] MEDS: INSULIN LISPRO 100 UNITS/ML SQ PRN ×3 (06:47→16:50)
[2023-07-05] MEDS: GABAPENTIN 300 MG CAPSULE PO SCH ×3 (08:33→16:47)
[2023-07-05] MEDS: PIOGLITAZONE HCL 30 MG TABLET PO SCH (08:34)
[2023-07-05] MEDS: HALOPERIDOL 5 MG TABLET PO PRN ×3 (08:34→23:27)
[2023-07-05] MEDS: LORazepam 1 MG TABLET PO PRN ×2 (08:34→16:47)
[2023-07-05] MEDS: SULFAMETHOX/TRIMETH DS 800-160 MG/TABLET PO SCH ×2 (08:34→16:47)
[2023-07-05 11:46] LABS: GLUCOMETER DEV NAME(LOC) BV3N.; GLUCOSE,POINT OF CARE 228 MG/DL (70-110)
[2023-07-05 16:46] LABS: GLUCOMETER DEV NAME(LOC) BV3N.; GLUCOSE,POINT OF CARE 300 MG/DL (70-110)
[2023-07-05] MEDS: SIMVASTATIN 40 MG TABLET PO SCH (20:56)
[2023-07-06] VITALS (8 sets, daily range): BP systolic 130–145; BP diastolic 73–80; PULSE 85–90; RESP 18; TEMP 97.9–98.7; O2SAT 96
[2023-07-06 05:51] LABS: GLUCOMETER DEV NAME(LOC) BV3N.; GLUCOSE,POINT OF CARE 147 MG/DL (70-110)
[2023-07-06] MEDS: INSULIN LISPRO 100 UNITS/ML SQ PRN ×4 (06:26→20:34)
[2023-07-06] MEDS: MetFORMIN HCL 500 MG TABLET PO SCH ×2 (06:27→16:29)
[2023-07-06] MEDS: SULFAMETHOX/TRIMETH DS 800-160 MG/TABLET PO SCH ×2 (08:27→16:29)
[2023-07-06] MEDS: HALOPERIDOL 5 MG TABLET PO PRN ×4 (08:27→20:48)
[2023-07-06] MEDS: PIOGLITAZONE HCL 30 MG TABLET PO SCH (08:27)
[2023-07-06] MEDS: GABAPENTIN 300 MG CAPSULE PO SCH ×3 (08:27→16:29)
[2023-07-06] MEDS: LORazepam 1 MG TABLET PO PRN ×3 (08:27→16:29)
[2023-07-06 12:01] LABS: GLUCOMETER DEV NAME(LOC) BV3N.; GLUCOSE,POINT OF CARE 174 MG/DL (70-110)
[2023-07-06 17:01] LABS: GLUCOMETER DEV NAME(LOC) BV3N.; GLUCOSE,POINT OF CARE 298 MG/DL (70-110)
[2023-07-06] MEDS: SIMVASTATIN 40 MG TABLET PO SCH (20:30)
[2023-07-06 20:36] LABS: GLUCOMETER DEV NAME(LOC) BV3N.; GLUCOSE,POINT OF CARE 161 MG/DL (70-110)
[2023-07-07] VITALS (8 sets, daily range): BP systolic 112–130; BP diastolic 69–78; PULSE 83–89; RESP 18; TEMP 97–98; O2SAT 98–99
[2023-07-07 06:26] LABS: GLUCOMETER DEV NAME(LOC) BV3N.; GLUCOSE,POINT OF CARE 186 MG/DL (70-110)
[2023-07-07] MEDS: MetFORMIN HCL 500 MG TABLET PO SCH ×2 (06:51→16:41)
[2023-07-07] MEDS: INSULIN LISPRO 100 UNITS/ML SQ PRN ×2 (06:55→11:31)
[2023-07-07] MEDS: GABAPENTIN 300 MG CAPSULE PO SCH ×3 (08:27→16:48)
[2023-07-07] MEDS: SULFAMETHOX/TRIMETH DS 800-160 MG/TABLET PO SCH ×2 (08:27→16:46)
[2023-07-07] MEDS: PIOGLITAZONE HCL 30 MG TABLET PO SCH (08:28)
[2023-07-07 11:26] LABS: GLUCOMETER DEV NAME(LOC) BV3N.; GLUCOSE,POINT OF CARE 195 MG/DL (70-110)
[2023-07-07] MEDS: SIMVASTATIN 40 MG TABLET PO SCH (21:00)
[2023-07-07] MEDS ORDERED: SIMVASTATIN 20 MG TABLET PO SCH (22:30)
[2023-07-08] VITALS (9 sets, daily range): BP systolic 110–128; BP diastolic 72–80; PULSE 86–94; RESP 17–18; TEMP 97.2–98.1; O2SAT 97–99
[2023-07-08] MEDS: LORazepam 1 MG TABLET PO PRN ×4 (03:08→16:34)
[2023-07-08] MEDS: HALOPERIDOL 5 MG TABLET PO PRN ×4 (03:08→16:35)
[2023-07-08] MEDS: MetFORMIN HCL 500 MG TABLET PO SCH ×2 (06:35→16:34)
[2023-07-08] MEDS: PIOGLITAZONE HCL 30 MG TABLET PO SCH (08:15)
[2023-07-08] MEDS: GABAPENTIN 300 MG CAPSULE PO SCH ×3 (08:15→16:34)
[2023-07-08] MEDS: SULFAMETHOX/TRIMETH DS 800-160 MG/TABLET PO SCH ×2 (08:15→16:34)
[2023-07-08] MEDS: INSULIN LISPRO 100 UNITS/ML SQ PRN ×3 (11:27→21:16)
[2023-07-08 12:06] LABS: GLUCOMETER DEV NAME(LOC) BV3N.; GLUCOSE,POINT OF CARE 223 MG/DL (70-110)
[2023-07-08 16:51] LABS: GLUCOMETER DEV NAME(LOC) BV3N.; GLUCOSE,POINT OF CARE 309 MG/DL (70-110)
[2023-07-08 20:25] LABS: GLUCOMETER DEV NAME(LOC) BV3N.; GLUCOSE,POINT OF CARE 221 MG/DL (70-110)
[2023-07-08] MEDS ORDERED: SIMVASTATIN 40 MG TABLET PO SCH (21:00)
[2023-07-08] MEDS: SIMVASTATIN 40 MG TABLET PO SCH (21:16)
[2023-07-09 02:04] VITALS: TEMP 97.8
[2023-07-09 05:51] LABS: GLUCOMETER DEV NAME(LOC) BV3N.; GLUCOSE,POINT OF CARE 232 MG/DL (70-110)
[2023-07-09 06:06] VITALS: TEMP 98.1
[2023-07-09] MEDS: MetFORMIN HCL 500 MG TABLET PO SCH ×2 (06:25→16:09)
[2023-07-09] MEDS: INSULIN LISPRO 100 UNITS/ML SQ PRN ×2 (06:28→20:32)
[2023-07-09] MEDS: GABAPENTIN 300 MG CAPSULE PO SCH ×3 (08:13→16:09)
[2023-07-09] MEDS: PIOGLITAZONE HCL 30 MG TABLET PO SCH (08:13)
[2023-07-09] MEDS: SULFAMETHOX/TRIMETH DS 800-160 MG/TABLET PO SCH ×2 (08:13→16:09)
[2023-07-09 08:49] VITALS: BP 140/76; PULSE 87; RESP 18; TEMP 97.7; O2SAT 99
[2023-07-09 13:58] VITALS: TEMP 97.4
[2023-07-09 20:15] VITALS: BP 140/83; PULSE 86; RESP 20; TEMP 98.2; O2SAT 96
[2023-07-09] MEDS: LORazepam 1 MG TABLET PO PRN (20:23)
[2023-07-09] MEDS: HALOPERIDOL 5 MG TABLET PO PRN (20:23)
[2023-07-09] MEDS: SIMVASTATIN 40 MG TABLET PO SCH (20:23)
[2023-07-09 20:55] LABS: GLUCOMETER DEV NAME(LOC) BV3N.; GLUCOSE,POINT OF CARE 200 MG/DL (70-110)
[2023-07-10 06:16] LABS: GLUCOMETER DEV NAME(LOC) BV3N.; GLUCOSE,POINT OF CARE 199 MG/DL (70-110)
[2023-07-10] MEDS: INSULIN LISPRO 100 UNITS/ML SQ PRN ×3 (06:32→21:08)
[2023-07-10] MEDS: MetFORMIN HCL 500 MG TABLET PO SCH ×2 (06:33→17:18)
[2023-07-10] MEDS: SULFAMETHOX/TRIMETH DS 800-160 MG/TABLET PO SCH ×2 (08:18→17:18)
[2023-07-10] MEDS: GABAPENTIN 300 MG CAPSULE PO SCH ×3 (08:18→17:18)
[2023-07-10] MEDS: PIOGLITAZONE HCL 30 MG TABLET PO SCH (08:18)
[2023-07-10 08:38] VITALS: BP 150/80; PULSE 80; RESP 20; TEMP 97.9; O2SAT 98
[2023-07-10 17:16] LABS: GLUCOMETER DEV NAME(LOC) BV3N.; GLUCOSE,POINT OF CARE 288 MG/DL (70-110)
[2023-07-10] MEDS: HALOPERIDOL 5 MG TABLET PO PRN ×2 (17:18→21:33)
[2023-07-10] MEDS: LORazepam 1 MG TABLET PO PRN ×2 (17:18→21:33)
[2023-07-10 20:12] VITALS: BP 140/79; PULSE 90; RESP 20; TEMP 97.9; O2SAT 98
[2023-07-10 20:55] LABS: GLUCOMETER DEV NAME(LOC) BV3N.; GLUCOSE,POINT OF CARE 231 MG/DL (70-110)
[2023-07-10] MEDS: SIMVASTATIN 40 MG TABLET PO SCH (21:07)
[2023-07-10 23:16] LABS: GLUCOMETER DEV NAME(LOC) POC.BV; POC SARS-COV2 AG, FIA NEGATIVE (NEGATIVE)
[2023-07-11 03:57] VITALS: BP 138/87; PULSE 67; RESP 19; TEMP 97.3; O2SAT 98
[2023-07-11 05:46] LABS: GLUCOMETER DEV NAME(LOC) 3E.C; GLUCOSE,POINT OF CARE 350 MG/DL (70-110)
[2023-07-11] MEDS: MetFORMIN HCL 500 MG TABLET PO SCH ×2 (07:02→17:20)
[2023-07-11] MEDS: INSULIN LISPRO 100 UNITS/ML SQ PRN ×4 (07:06→21:03)
[2023-07-11] MEDS: PIOGLITAZONE HCL 30 MG TABLET PO SCH (09:14)
[2023-07-11] MEDS: HALOPERIDOL 5 MG TABLET PO PRN ×2 (09:16→21:54)
[2023-07-11] MEDS: GABAPENTIN 300 MG CAPSULE PO SCH ×3 (09:16→16:15)
[2023-07-11 11:06] VITALS: BP 163/85; PULSE 95; RESP 18; TEMP 97.6; O2SAT 95
[2023-07-11 11:21] LABS: GLUCOMETER DEV NAME(LOC) 3E.C; GLUCOSE,POINT OF CARE 175 MG/DL (70-110)
[2023-07-11] MEDS: LORazepam 1 MG TABLET PO PRN ×2 (16:15→21:54)
[2023-07-11 16:31] LABS: GLUCOMETER DEV NAME(LOC) 3E.C; GLUCOSE,POINT OF CARE 228 MG/DL (70-110)
[2023-07-11 20:43] VITALS: BP 127/68; PULSE 72; RESP 18; TEMP 97.8; O2SAT 95
[2023-07-11 21:21] LABS: GLUCOMETER DEV NAME(LOC) 3E.C; GLUCOSE,POINT OF CARE 247 MG/DL (70-110)
[2023-07-11] MEDS: SIMVASTATIN 40 MG TABLET PO SCH (21:54)
[2023-07-11] MEDS: ZOLPIDEM TARTRATE 10 MG TABLET PO PRN (22:35)
[2023-07-12 06:02] LABS: GLUCOMETER DEV NAME(LOC) 3E.C; GLUCOSE,POINT OF CARE 199 MG/DL (70-110)
[2023-07-12] MEDS: MetFORMIN HCL 500 MG TABLET PO SCH ×2 (06:50→17:19)
[2023-07-12] MEDS: INSULIN LISPRO 100 UNITS/ML SQ PRN ×4 (07:00→21:23)
[2023-07-12] MEDS: PIOGLITAZONE HCL 30 MG TABLET PO SCH (08:48)
[2023-07-12] MEDS: HALOPERIDOL 5 MG TABLET PO PRN ×2 (08:49→14:19)
[2023-07-12] MEDS: GABAPENTIN 300 MG CAPSULE PO SCH ×3 (08:49→16:01)
[2023-07-12 10:03] VITALS: BP 152/85; PULSE 78; RESP 17; TEMP 97.8; O2SAT 97
[2023-07-12 11:26] LABS: GLUCOMETER DEV NAME(LOC) 3E.C; GLUCOSE,POINT OF CARE 229 MG/DL (70-110)
[2023-07-12] MEDS: LORazepam 1 MG TABLET PO PRN (12:26)
[2023-07-12 16:21] LABS: GLUCOMETER DEV NAME(LOC) 3E.C; GLUCOSE,POINT OF CARE 256 MG/DL (70-110)
[2023-07-12 20:21] LABS: GLUCOMETER DEV NAME(LOC) 3E.C; GLUCOSE,POINT OF CARE 296 MG/DL (70-110)
[2023-07-12] MEDS: SIMVASTATIN 40 MG TABLET PO SCH (21:03)
[2023-07-12 21:55] VITALS: BP 131/86; PULSE 79; RESP 18; TEMP 97.2; O2SAT 96
[2023-07-13] MEDS: ZOLPIDEM TARTRATE 10 MG TABLET PO PRN ×2 (00:10→21:33)
[2023-07-13 05:47] LABS: GLUCOMETER DEV NAME(LOC) 3E.C; GLUCOSE,POINT OF CARE 219 MG/DL (70-110)
[2023-07-13] MEDS: MetFORMIN HCL 500 MG TABLET PO SCH ×2 (06:53→17:43)
[2023-07-13] MEDS: INSULIN LISPRO 100 UNITS/ML SQ PRN ×4 (07:06→21:07)
[2023-07-13] MEDS: PIOGLITAZONE HCL 30 MG TABLET PO SCH (08:28)
[2023-07-13] MEDS: MUPIROCIN CALCIUM 2% 22 GM OINTMENT NASAL SCH ×2 (08:28→16:37)
[2023-07-13] MEDS: GABAPENTIN 300 MG CAPSULE PO SCH ×3 (08:29→16:38)
[2023-07-13] MEDS: HALOPERIDOL 5 MG TABLET PO PRN ×3 (08:29→20:38)
[2023-07-13 09:00] VITALS: TEMP 97.6
[2023-07-13 11:36] LABS: GLUCOMETER DEV NAME(LOC) 3E.C; GLUCOSE,POINT OF CARE 188 MG/DL (70-110)
[2023-07-13] MEDS: LORazepam 1 MG TABLET PO PRN ×2 (12:16→20:38)
[2023-07-13 16:31] LABS: GLUCOMETER DEV NAME(LOC) 3E.C; GLUCOSE,POINT OF CARE 192 MG/DL (70-110)
[2023-07-13] MEDS: SIMVASTATIN 40 MG TABLET PO SCH (20:38)
[2023-07-13 21:01] LABS: GLUCOMETER DEV NAME(LOC) 3E.C; GLUCOSE,POINT OF CARE 295 MG/DL (70-110)
[2023-07-13 21:56] VITALS: BP 117/65; PULSE 72; RESP 18; TEMP 97.7; O2SAT 96
[2023-07-14 05:46] LABS: GLUCOMETER DEV NAME(LOC) 3E.C; GLUCOSE,POINT OF CARE 159 MG/DL (70-110)
[2023-07-14] MEDS: MetFORMIN HCL 500 MG TABLET PO SCH ×2 (06:48→17:36)
[2023-07-14] MEDS: INSULIN LISPRO 100 UNITS/ML SQ PRN ×4 (06:49→21:29)
[2023-07-14] MEDS: PIOGLITAZONE HCL 30 MG TABLET PO SCH (08:51)
[2023-07-14] MEDS: GABAPENTIN 300 MG CAPSULE PO SCH ×3 (08:51→17:04)
[2023-07-14] MEDS: MUPIROCIN CALCIUM 2% 22 GM OINTMENT NASAL SCH ×2 (08:51→17:04)
[2023-07-14 11:26] LABS: GLUCOMETER DEV NAME(LOC) 3E.C; GLUCOSE,POINT OF CARE 215 MG/DL (70-110)
[2023-07-14 11:34] VITALS: BP 127/75; PULSE 80; RESP 18; TEMP 97.3; O2SAT 97
[2023-07-14 17:17] LABS: GLUCOMETER DEV NAME(LOC) 3E.C; GLUCOSE,POINT OF CARE 166 MG/DL (70-110)
[2023-07-14 20:35] VITALS: BP 145/81; PULSE 87; RESP 18; TEMP 97.3; O2SAT 97
[2023-07-14] MEDS: SIMVASTATIN 40 MG TABLET PO SCH (21:27)
[2023-07-14] MEDS: ZOLPIDEM TARTRATE 10 MG TABLET PO PRN (21:27)
[2023-07-14 22:41] LABS: GLUCOMETER DEV NAME(LOC) 3E.C; GLUCOSE,POINT OF CARE 233 MG/DL (70-110)
[2023-07-15] MEDS ORDERED: RINGERS SOLUTION,LACTATED 1,000 ML IV ONE ×2 (05:45→05:50)
[2023-07-15] MEDS ORDERED: ETHYL ALCOHOL 62% ANTISEPTIC NASAL SANITIZER 0.6 ML AMPUL NASAL ONE (05:45)
[2023-07-15] MEDS ORDERED: BUPIVACAINE HCL/PF 0.5% 30 ML VIAL ONE (06:34)
[2023-07-15] MEDS ORDERED: LIDOCAINE/PF 1% 30 ML VIAL ONE (06:36)
[2023-07-15] MEDS ORDERED: SODIUM CL IRRIG SOLN BAG 0 ML IRRIG ONE (06:39)
[2023-07-15] MEDS: INSULIN LISPRO 100 UNITS/ML SQ PRN ×4 (06:56→21:54)
[2023-07-15 07:20] LABS: GLUCOMETER DEV NAME(LOC) 3E.C; GLUCOSE,POINT OF CARE 196 MG/DL (70-110)
[2023-07-15 07:21] LABS: ANION GAP 6 mmol/L (8-16); BASOPHILS % (AUTO) 0.5 % (0.0-2.0); CALCIUM, TOTAL 8.9 mg/dL (8.8-10.5); CARBON DIOXIDE 26 mmol/L (22-29); CHLORIDE 103 mmol/L (98-107); CREATININE 0.65 mg/dL (0.60-1.30); EOSINOPHILS % (AUTO) 6.8 % (1.0-6.0); GLOMERULAR FILTR. RATE CALC > 60 mL/min (>60); GLUCOSE,RANDOM 180 mg/dL (70-110); HEMATOCRIT 46.4 % (41-53); LYMPHOCYTES # (AUTO) 1.5 K/uL (1.0-4.8); LYMPHOCYTES % (AUTO) 31.2 % (22.0-44.0); MEAN CORPUSCULAR HEMOGLOBIN 32.7 pg (26.0-34.0); MEAN CORPUSCULAR HGB CONC 34.5 G/dL (31.0-37.0); MEAN CORPUSCULAR VOLUME 95 fL (80-100); MONOCYTES # (AUTO) 0.5 K/uL (0.1-1.0); MONOCYTES % (AUTO) 9.8 % (2.0-9.0); NEUTROPHILS # (AUTO) 2.4 K/uL (1.8-7.7); NEUTROPHILS % (AUTO) 51.7 % (40.0-70.0); PLATELET COUNT (AUTO) 193 K/uL (150-450); POTASSIUM 4.2 mmol/L (3.5-5.1); RED BLOOD CELL COUNT(AUTO) 4.89 MIL/uL (4.50-5.90); RED CELL DISTRIBUTION WIDTH 13.6 % (11.5-14.5); SODIUM SERUM 135 mmol/L (136-145); UREA NITROGEN, BLOOD 14 mg/dL (7-18); WHITE BLOOD COUNT (AUTO) 4.7 K/uL (4.5-11.0)
[2023-07-15] MEDS: MetFORMIN HCL 500 MG TABLET PO SCH ×2 (07:27→17:33)
[2023-07-15 08:00] VITALS: BP 117/78; PULSE 76; RESP 18; TEMP 97.1; O2SAT 76
[2023-07-15] MEDS ORDERED: MEPERIDINE-PF 25 MG/ML VIAL IVP PRN (08:00)
[2023-07-15] MEDS ORDERED: HYDROmorphone HCL 2 MG/ML SYRINGE IVP PRN (08:00)
[2023-07-15] MEDS ORDERED: OXYGEN THERAPY IH SCH (08:00)
[2023-07-15] MEDS ORDERED: FentaNYL CITRATE PF 100 MCG/2 ML VIAL IVP PRN (08:00)
[2023-07-15] MEDS: GABAPENTIN 300 MG CAPSULE PO SCH ×3 (10:16→17:33)
[2023-07-15] MEDS: MUPIROCIN CALCIUM 2% 22 GM OINTMENT NASAL SCH ×2 (10:17→17:36)
[2023-07-15] MEDS: PIOGLITAZONE HCL 30 MG TABLET PO SCH (10:17)
[2023-07-15 11:46] LABS: GLUCOMETER DEV NAME(LOC) 3E.C; GLUCOSE,POINT OF CARE 239 MG/DL (70-110)
[2023-07-15 16:46] LABS: GLUCOMETER DEV NAME(LOC) 3E.C; GLUCOSE,POINT OF CARE 187 MG/DL (70-110)
[2023-07-15 20:51] LABS: GLUCOMETER DEV NAME(LOC) 3E.C; GLUCOSE,POINT OF CARE 149 MG/DL (70-110)
[2023-07-15 21:01] VITALS: BP 133/78; PULSE 81; RESP 18; TEMP 97.3; O2SAT 99
[2023-07-15] MEDS: SIMVASTATIN 40 MG TABLET PO SCH (21:04)
[2023-07-15] MEDS: ZOLPIDEM TARTRATE 10 MG TABLET PO PRN (22:12)
[2023-07-16 05:51] LABS: GLUCOMETER DEV NAME(LOC) 3E.C; GLUCOSE,POINT OF CARE 190 MG/DL (70-110)
[2023-07-16] MEDS: INSULIN LISPRO 100 UNITS/ML SQ PRN ×4 (06:36→21:34)
[2023-07-16] MEDS: MetFORMIN HCL 500 MG TABLET PO SCH ×2 (06:50→17:16)
[2023-07-16 09:15] VITALS: BP 144/88; PULSE 81; RESP 18; TEMP 98; O2SAT 97
[2023-07-16] MEDS: GABAPENTIN 300 MG CAPSULE PO SCH ×3 (09:43→17:16)
[2023-07-16] MEDS: PIOGLITAZONE HCL 30 MG TABLET PO SCH (09:44)
[2023-07-16] MEDS: MUPIROCIN CALCIUM 2% 22 GM OINTMENT NASAL SCH ×2 (11:33→17:17)
[2023-07-16 11:46] LABS: GLUCOMETER DEV NAME(LOC) 3E.C; GLUCOSE,POINT OF CARE 183 MG/DL (70-110)
[2023-07-16 16:16] LABS: GLUCOMETER DEV NAME(LOC) 3E.C; GLUCOSE,POINT OF CARE 165 MG/DL (70-110)
[2023-07-16] MEDS: SIMVASTATIN 40 MG TABLET PO SCH (20:26)
[2023-07-16 20:35] LABS: GLUCOMETER DEV NAME(LOC) 3E.C; GLUCOSE,POINT OF CARE 125 MG/DL (70-110)
[2023-07-16 20:46] VITALS: BP 117/75; PULSE 71; RESP 18; TEMP 97.8; O2SAT 98
[2023-07-16] MEDS: ZOLPIDEM TARTRATE 10 MG TABLET PO PRN (21:01)
[2023-07-17 06:02] LABS: GLUCOMETER DEV NAME(LOC) 3E.C; GLUCOSE,POINT OF CARE 203 MG/DL (70-110)
[2023-07-17] MEDS: INSULIN LISPRO 100 UNITS/ML SQ PRN ×4 (06:49→21:08)
[2023-07-17] MEDS: MetFORMIN HCL 500 MG TABLET PO SCH ×2 (07:00→18:27)
[2023-07-17] MEDS: GABAPENTIN 300 MG CAPSULE PO SCH ×3 (08:50→18:27)
[2023-07-17] MEDS: PIOGLITAZONE HCL 30 MG TABLET PO SCH (08:50)
[2023-07-17] MEDS: MUPIROCIN CALCIUM 2% 22 GM OINTMENT NASAL SCH ×2 (08:50→18:28)
[2023-07-17 10:43] VITALS: BP 123/84; RESP 18; O2SAT 97
[2023-07-17 11:57] LABS: GLUCOMETER DEV NAME(LOC) 3E.C; GLUCOSE,POINT OF CARE 223 MG/DL (70-110)
[2023-07-17] MEDS ORDERED: TUBERCULIN, PURIFIED PROTEIN DERIVATIVE 5 TU/0.1 ML SYRINGE ID ONE (14:15)
[2023-07-17 16:17] LABS: GLUCOMETER DEV NAME(LOC) 3E.C; GLUCOSE,POINT OF CARE 170 MG/DL (70-110)
[2023-07-17] MEDS: SIMVASTATIN 40 MG TABLET PO SCH (20:35)
[2023-07-17 20:40] LABS: GLUCOMETER DEV NAME(LOC) 3E.C; GLUCOSE,POINT OF CARE 156 MG/DL (70-110)
[2023-07-17 21:52] VITALS: BP 129/76; PULSE 85; RESP 18; TEMP 97.8
[2023-07-18 05:51] LABS: GLUCOMETER DEV NAME(LOC) 3E.C; GLUCOSE,POINT OF CARE 168 MG/DL (70-110)
[2023-07-18] MEDS: MetFORMIN HCL 500 MG TABLET PO SCH ×2 (06:55→17:57)
[2023-07-18] MEDS: INSULIN LISPRO 100 UNITS/ML SQ PRN ×4 (07:04→21:08)
[2023-07-18 08:20] VITALS: BP 139/92; PULSE 74; RESP 18; TEMP 97.8; O2SAT 97
[2023-07-18] MEDS: PIOGLITAZONE HCL 30 MG TABLET PO SCH (08:53)
[2023-07-18] MEDS: GABAPENTIN 300 MG CAPSULE PO SCH ×3 (08:53→17:57)
[2023-07-18 11:26] LABS: GLUCOMETER DEV NAME(LOC) 3E.C; GLUCOSE,POINT OF CARE 176 MG/DL (70-110)
[2023-07-18 17:01] LABS: GLUCOMETER DEV NAME(LOC) 3E.C; GLUCOSE,POINT OF CARE 178 MG/DL (70-110)
[2023-07-18 20:18] VITALS: BP 119/73; PULSE 72; RESP 18; TEMP 97.9; O2SAT 98
[2023-07-18 20:41] LABS: GLUCOMETER DEV NAME(LOC) 3E.C; GLUCOSE,POINT OF CARE 178 MG/DL (70-110)
[2023-07-18] MEDS: SIMVASTATIN 40 MG TABLET PO SCH (20:44)
[2023-07-18] MEDS: ZOLPIDEM TARTRATE 10 MG TABLET PO PRN (20:45)
[2023-07-18] MEDS ORDERED: DEXTROSE 50%-WATER 25 GM/50 ML SYG IVP PRN (23:45)
[2023-07-19 06:01] LABS: GLUCOMETER DEV NAME(LOC) 3E.C; GLUCOSE,POINT OF CARE 162 MG/DL (70-110)
[2023-07-19] MEDS: MetFORMIN HCL 500 MG TABLET PO SCH ×2 (06:44→17:37)
[2023-07-19] MEDS: INSULIN LISPRO 100 UNITS/ML SQ PRN ×4 (06:47→21:50)
[2023-07-19] MEDS: ASCORBIC ACID 500 MG TABLET PO SCH (08:57)
[2023-07-19] MEDS: MULTIVITAMINS WITH MINERALS, THERAPEUTIC TABLET PO SCH (08:57)
[2023-07-19] MEDS: GABAPENTIN 300 MG CAPSULE PO SCH ×3 (08:57→17:37)
[2023-07-19] MEDS: PIOGLITAZONE HCL 30 MG TABLET PO SCH (08:57)
[2023-07-19] MEDS: ZINC SULFATE 220 MG CAPSULE PO SCH (08:57)
[2023-07-19 09:54] VITALS: BP 143/82; PULSE 75; RESP 18; TEMP 97.7; O2SAT 98
[2023-07-19 11:31] LABS: GLUCOMETER DEV NAME(LOC) 3E.C; GLUCOSE,POINT OF CARE 158 MG/DL (70-110)
[2023-07-19] MEDS: HALOPERIDOL DECANOATE 100 MG/ML VIAL IM SCH (14:13)
[2023-07-19 17:27] LABS: GLUCOMETER DEV NAME(LOC) 3E.C; GLUCOSE,POINT OF CARE 169 MG/DL (70-110)
[2023-07-19 20:26] LABS: GLUCOMETER DEV NAME(LOC) 3E.C; GLUCOSE,POINT OF CARE 216 MG/DL (70-110)
[2023-07-19] MEDS: SIMVASTATIN 40 MG TABLET PO SCH (20:28)
[2023-07-19 20:54] VITALS: BP 130/76; PULSE 76; RESP 18; TEMP 97.5
[2023-07-19] MEDS: ZOLPIDEM TARTRATE 10 MG TABLET PO PRN (21:53)
[2023-07-20 05:51] LABS: GLUCOMETER DEV NAME(LOC) 3E.C; GLUCOSE,POINT OF CARE 128 MG/DL (70-110)
[2023-07-20] MEDS: INSULIN LISPRO 100 UNITS/ML SQ PRN ×4 (06:41→21:06)
[2023-07-20] MEDS: MetFORMIN HCL 500 MG TABLET PO SCH ×2 (06:41→17:03)
[2023-07-20] MEDS: PIOGLITAZONE HCL 30 MG TABLET PO SCH (09:36)
[2023-07-20] MEDS: MULTIVITAMINS WITH MINERALS, THERAPEUTIC TABLET PO SCH (09:36)
[2023-07-20] MEDS: ASCORBIC ACID 500 MG TABLET PO SCH (09:36)
[2023-07-20] MEDS: ZINC SULFATE 220 MG CAPSULE PO SCH (09:36)
[2023-07-20] MEDS: GABAPENTIN 300 MG CAPSULE PO SCH ×3 (09:36→17:03)
[2023-07-20 10:45] VITALS: BP 142/80; PULSE 85; RESP 16; TEMP 96.3; O2SAT 98
[2023-07-20 11:26] LABS: GLUCOMETER DEV NAME(LOC) 3E.C; GLUCOSE,POINT OF CARE 169 MG/DL (70-110)
[2023-07-20 17:11] LABS: GLUCOMETER DEV NAME(LOC) 3E.C; GLUCOSE,POINT OF CARE 150 MG/DL (70-110)
[2023-07-20] MEDS: SIMVASTATIN 40 MG TABLET PO SCH (20:33)
[2023-07-20 21:31] LABS: GLUCOMETER DEV NAME(LOC) 3E.C; GLUCOSE,POINT OF CARE 218 MG/DL (70-110)
[2023-07-20] MEDS: ZOLPIDEM TARTRATE 10 MG TABLET PO PRN (21:53)
[2023-07-20 21:57] VITALS: BP 129/85; PULSE 81; RESP 19; TEMP 97.6; O2SAT 98
[2023-07-21 05:51] LABS: GLUCOMETER DEV NAME(LOC) 3E.C; GLUCOSE,POINT OF CARE 147 MG/DL (70-110)
[2023-07-21] MEDS: INSULIN LISPRO 100 UNITS/ML SQ PRN ×4 (06:39→21:09)
[2023-07-21] MEDS: MetFORMIN HCL 500 MG TABLET PO SCH ×2 (06:44→16:22)
[2023-07-21] MEDS: PIOGLITAZONE HCL 30 MG TABLET PO SCH (09:17)
[2023-07-21] MEDS: GABAPENTIN 300 MG CAPSULE PO SCH ×3 (09:17→16:22)
[2023-07-21] MEDS: ASCORBIC ACID 500 MG TABLET PO SCH (09:17)
[2023-07-21] MEDS: MULTIVITAMINS WITH MINERALS, THERAPEUTIC TABLET PO SCH (09:17)
[2023-07-21] MEDS: ZINC SULFATE 220 MG CAPSULE PO SCH (09:18)
[2023-07-21 10:17] VITALS: BP 139/76; PULSE 81; RESP 18; TEMP 98.2; O2SAT 98
[2023-07-21 11:46] LABS: GLUCOMETER DEV NAME(LOC) 3E.C; GLUCOSE,POINT OF CARE 229 MG/DL (70-110)
[2023-07-21 17:17] LABS: GLUCOMETER DEV NAME(LOC) 3E.C; GLUCOSE,POINT OF CARE 139 MG/DL (70-110)
[2023-07-21 20:26] LABS: GLUCOMETER DEV NAME(LOC) 3E.C; GLUCOSE,POINT OF CARE 254 MG/DL (70-110)
[2023-07-21] MEDS: SIMVASTATIN 40 MG TABLET PO SCH (20:38)
[2023-07-21] MEDS: ZOLPIDEM TARTRATE 10 MG TABLET PO PRN (20:38)
[2023-07-21 21:25] VITALS: BP 133/82; RESP 18
[2023-07-22 05:36] LABS: GLUCOMETER DEV NAME(LOC) 3E.C; GLUCOSE,POINT OF CARE 174 MG/DL (70-110)
[2023-07-22] MEDS: INSULIN LISPRO 100 UNITS/ML SQ PRN ×4 (06:38→21:36)
[2023-07-22] MEDS: MetFORMIN HCL 500 MG TABLET PO SCH ×2 (06:38→18:17)
[2023-07-22 08:05] VITALS: BP 119/74; PULSE 94; RESP 18; TEMP 97.3; O2SAT 99
[2023-07-22] MEDS: GABAPENTIN 300 MG CAPSULE PO SCH ×3 (10:04→18:17)
[2023-07-22] MEDS: PIOGLITAZONE HCL 30 MG TABLET PO SCH (10:04)
[2023-07-22] MEDS: ASCORBIC ACID 500 MG TABLET PO SCH (10:04)
[2023-07-22] MEDS: ZINC SULFATE 220 MG CAPSULE PO SCH (10:04)
[2023-07-22] MEDS: MULTIVITAMINS WITH MINERALS, THERAPEUTIC TABLET PO SCH (10:05)
[2023-07-22 12:07] LABS: GLUCOMETER DEV NAME(LOC) 3E.C; GLUCOSE,POINT OF CARE 195 MG/DL (70-110)
[2023-07-22 17:31] LABS: GLUCOMETER DEV NAME(LOC) 3E.C; GLUCOSE,POINT OF CARE 176 MG/DL (70-110)
[2023-07-22 20:26] LABS: GLUCOMETER DEV NAME(LOC) 3E.C; GLUCOSE,POINT OF CARE 224 MG/DL (70-110)
[2023-07-22] MEDS: SIMVASTATIN 40 MG TABLET PO SCH (20:26)
[2023-07-22] MEDS: ZOLPIDEM TARTRATE 10 MG TABLET PO PRN (20:27)
[2023-07-22 21:48] VITALS: BP 128/79; PULSE 81; RESP 18; TEMP 97.4
[2023-07-23 05:36] LABS: GLUCOMETER DEV NAME(LOC) 3E.C; GLUCOSE,POINT OF CARE 186 MG/DL (70-110)
[2023-07-23] MEDS: MetFORMIN HCL 500 MG TABLET PO SCH ×2 (06:36→16:29)
[2023-07-23] MEDS: INSULIN LISPRO 100 UNITS/ML SQ PRN ×4 (06:41→20:10)
[2023-07-23] MEDS: MULTIVITAMINS WITH MINERALS, THERAPEUTIC TABLET PO SCH (08:32)
[2023-07-23] MEDS: PIOGLITAZONE HCL 30 MG TABLET PO SCH (08:32)
[2023-07-23] MEDS: ASCORBIC ACID 500 MG TABLET PO SCH (08:32)
[2023-07-23] MEDS: GABAPENTIN 300 MG CAPSULE PO SCH ×3 (08:32→16:30)
[2023-07-23] MEDS: ZINC SULFATE 220 MG CAPSULE PO SCH (08:33)
[2023-07-23 09:45] VITALS: BP 133/87; PULSE 68; RESP 20; TEMP 97; O2SAT 97
[2023-07-23 11:56] LABS: GLUCOMETER DEV NAME(LOC) 3E.C; GLUCOSE,POINT OF CARE 209 MG/DL (70-110)
[2023-07-23 16:46] LABS: GLUCOMETER DEV NAME(LOC) 3E.C; GLUCOSE,POINT OF CARE 154 MG/DL (70-110)
[2023-07-23 21:26] LABS: GLUCOMETER DEV NAME(LOC) 3E.C; GLUCOSE,POINT OF CARE 211 MG/DL (70-110)
[2023-07-23 21:53] VITALS: BP 113/65; PULSE 79; RESP 19; TEMP 98.2; O2SAT 98
[2023-07-23] MEDS: SIMVASTATIN 40 MG TABLET PO SCH (21:55)
[2023-07-23] MEDS: ZOLPIDEM TARTRATE 10 MG TABLET PO PRN (21:55)
[2023-07-24 05:41] LABS: GLUCOMETER DEV NAME(LOC) 3E.C; GLUCOSE,POINT OF CARE 174 MG/DL (70-110)
[2023-07-24] MEDS: INSULIN LISPRO 100 UNITS/ML SQ PRN ×4 (06:39→21:12)
[2023-07-24] MEDS: MetFORMIN HCL 500 MG TABLET PO SCH ×2 (06:57→16:07)
[2023-07-24] MEDS: PIOGLITAZONE HCL 30 MG TABLET PO SCH (08:21)
[2023-07-24] MEDS: ZINC SULFATE 220 MG CAPSULE PO SCH (08:21)
[2023-07-24] MEDS: MULTIVITAMINS WITH MINERALS, THERAPEUTIC TABLET PO SCH (08:21)
[2023-07-24] MEDS: ASCORBIC ACID 500 MG TABLET PO SCH (08:21)
[2023-07-24] MEDS: GABAPENTIN 300 MG CAPSULE PO SCH ×3 (08:21→16:07)
[2023-07-24 09:48] VITALS: BP 136/91; PULSE 80; RESP 18; TEMP 97; O2SAT 97
[2023-07-24 11:46] LABS: GLUCOMETER DEV NAME(LOC) 3E.C; GLUCOSE,POINT OF CARE 150 MG/DL (70-110)
[2023-07-24 16:21] LABS: GLUCOMETER DEV NAME(LOC) 3E.C; GLUCOSE,POINT OF CARE 171 MG/DL (70-110)
[2023-07-24 21:03] VITALS: BP 127/75; PULSE 72; RESP 19; TEMP 97.7; O2SAT 98
[2023-07-24 21:11] LABS: GLUCOMETER DEV NAME(LOC) 3E.C; GLUCOSE,POINT OF CARE 142 MG/DL (70-110)
[2023-07-24] MEDS: ZOLPIDEM TARTRATE 10 MG TABLET PO PRN (21:41)
[2023-07-24] MEDS: SIMVASTATIN 40 MG TABLET PO SCH (21:41)
[2023-07-25] MEDS: INSULIN LISPRO 100 UNITS/ML SQ PRN ×4 (06:31→21:06)
[2023-07-25] MEDS: MetFORMIN HCL 500 MG TABLET PO SCH ×2 (06:37→16:12)
[2023-07-25 07:20] LABS: GLUCOMETER DEV NAME(LOC) 3E.C; GLUCOSE,POINT OF CARE 176 MG/DL (70-110)
[2023-07-25] MEDS: PIOGLITAZONE HCL 30 MG TABLET PO SCH (08:53)
[2023-07-25] MEDS: ZINC SULFATE 220 MG CAPSULE PO SCH (08:53)
[2023-07-25] MEDS: GABAPENTIN 300 MG CAPSULE PO SCH ×3 (08:53→16:12)
[2023-07-25] MEDS: MULTIVITAMINS WITH MINERALS, THERAPEUTIC TABLET PO SCH (08:53)
[2023-07-25] MEDS: ASCORBIC ACID 500 MG TABLET PO SCH (08:53)
[2023-07-25 09:00] VITALS: BP 142/81; PULSE 74; RESP 18; TEMP 97.6; O2SAT 97
[2023-07-25 11:36] LABS: GLUCOMETER DEV NAME(LOC) 3E.C; GLUCOSE,POINT OF CARE 175 MG/DL (70-110)
[2023-07-25 16:41] LABS: GLUCOMETER DEV NAME(LOC) 3E.C; GLUCOSE,POINT OF CARE 161 MG/DL (70-110)
[2023-07-25 21:06] LABS: GLUCOMETER DEV NAME(LOC) 3E.C; GLUCOSE,POINT OF CARE 173 MG/DL (70-110)
[2023-07-25 21:24] VITALS: RESP 19
[2023-07-25] MEDS: ZOLPIDEM TARTRATE 10 MG TABLET PO PRN (21:30)
[2023-07-25] MEDS: SIMVASTATIN 40 MG TABLET PO SCH (21:30)
[2023-07-26] MEDS: MetFORMIN HCL 500 MG TABLET PO SCH ×2 (06:40→16:16)
[2023-07-26] MEDS: INSULIN LISPRO 100 UNITS/ML SQ PRN ×4 (06:41→21:10)
[2023-07-26 07:01] LABS: GLUCOMETER DEV NAME(LOC) 3E.C; GLUCOSE,POINT OF CARE 167 MG/DL (70-110)
[2023-07-26] MEDS: PIOGLITAZONE HCL 30 MG TABLET PO SCH (08:40)
[2023-07-26] MEDS: ASCORBIC ACID 500 MG TABLET PO SCH (08:40)
[2023-07-26] MEDS: GABAPENTIN 300 MG CAPSULE PO SCH ×3 (08:40→16:16)
[2023-07-26] MEDS: ZINC SULFATE 220 MG CAPSULE PO SCH (08:40)
[2023-07-26] MEDS: MULTIVITAMINS WITH MINERALS, THERAPEUTIC TABLET PO SCH (08:40)
[2023-07-26 10:51] VITALS: BP 154/99; PULSE 71; RESP 18; TEMP 97.6; O2SAT 98
[2023-07-26 11:46] LABS: GLUCOMETER DEV NAME(LOC) 3E.C; GLUCOSE,POINT OF CARE 137 MG/DL (70-110)
[2023-07-26 17:16] LABS: GLUCOMETER DEV NAME(LOC) 3E.C; GLUCOSE,POINT OF CARE 214 MG/DL (70-110)
[2023-07-26 21:00] LABS: GLUCOMETER DEV NAME(LOC) 3E.C; GLUCOSE,POINT OF CARE 219 MG/DL (70-110)
[2023-07-26] MEDS: SIMVASTATIN 40 MG TABLET PO SCH (21:17)
[2023-07-26] MEDS: ZOLPIDEM TARTRATE 10 MG TABLET PO PRN (21:17)
[2023-07-26 22:19] VITALS: BP 113/73; PULSE 77; RESP 17; TEMP 97.2; O2SAT 95
[2023-07-26 22:25] VITALS: BP 113/73; PULSE 77; RESP 18; TEMP 97.2; O2SAT 95
[2023-07-27 05:51] LABS: GLUCOMETER DEV NAME(LOC) 3E.C; GLUCOSE,POINT OF CARE 170 MG/DL (70-110)
[2023-07-27] MEDS: INSULIN LISPRO 100 UNITS/ML SQ PRN ×4 (06:41→21:37)
[2023-07-27] MEDS: MetFORMIN HCL 500 MG TABLET PO SCH ×2 (07:04→16:32)
[2023-07-27] MEDS: ASCORBIC ACID 500 MG TABLET PO SCH (08:37)
[2023-07-27] MEDS: PIOGLITAZONE HCL 30 MG TABLET PO SCH (08:37)
[2023-07-27] MEDS: MULTIVITAMINS WITH MINERALS, THERAPEUTIC TABLET PO SCH (08:37)
[2023-07-27] MEDS: GABAPENTIN 300 MG CAPSULE PO SCH ×3 (08:37→16:32)
[2023-07-27] MEDS: ZINC SULFATE 220 MG CAPSULE PO SCH (08:37)
[2023-07-27 11:02] VITALS: BP 143/81; PULSE 78; RESP 18; TEMP 97.7; O2SAT 97
[2023-07-27 11:56] LABS: GLUCOMETER DEV NAME(LOC) 3E.C; GLUCOSE,POINT OF CARE 158 MG/DL (70-110)
[2023-07-27 17:06] LABS: GLUCOMETER DEV NAME(LOC) 3E.C; GLUCOSE,POINT OF CARE 120 MG/DL (70-110)
[2023-07-27 20:17] VITALS: BP 128/79; PULSE 66; RESP 18; TEMP 97.1; O2SAT 97
[2023-07-27 20:56] LABS: GLUCOMETER DEV NAME(LOC) 3E.C; GLUCOSE,POINT OF CARE 235 MG/DL (70-110)
[2023-07-27] MEDS: SIMVASTATIN 40 MG TABLET PO SCH (21:13)
[2023-07-27] MEDS: ZOLPIDEM TARTRATE 10 MG TABLET PO PRN (21:13)
[2023-07-28 05:51] LABS: GLUCOMETER DEV NAME(LOC) 3E.C; GLUCOSE,POINT OF CARE 172 MG/DL (70-110)
[2023-07-28] MEDS: INSULIN LISPRO 100 UNITS/ML SQ PRN ×4 (06:56→21:22)
[2023-07-28] MEDS: MetFORMIN HCL 500 MG TABLET PO SCH ×2 (07:03→17:31)
[2023-07-28 08:52] VITALS: BP 143/90; PULSE 90; RESP 20; TEMP 97.6; O2SAT 98
[2023-07-28] MEDS: ASCORBIC ACID 500 MG TABLET PO SCH (09:21)
[2023-07-28] MEDS: PIOGLITAZONE HCL 30 MG TABLET PO SCH (09:21)
[2023-07-28] MEDS: GABAPENTIN 300 MG CAPSULE PO SCH ×3 (09:21→17:31)
[2023-07-28] MEDS: ZINC SULFATE 220 MG CAPSULE PO SCH (09:21)
[2023-07-28] MEDS: MULTIVITAMINS WITH MINERALS, THERAPEUTIC TABLET PO SCH (09:22)
[2023-07-28 11:36] LABS: GLUCOMETER DEV NAME(LOC) 3E.C; GLUCOSE,POINT OF CARE 184 MG/DL (70-110)
[2023-07-28 17:01] LABS: GLUCOMETER DEV NAME(LOC) 3E.C; GLUCOSE,POINT OF CARE 128 MG/DL (70-110)
[2023-07-28 20:29] VITALS: BP 133/78; PULSE 88; RESP 18; TEMP 97.8
[2023-07-28] MEDS: ZOLPIDEM TARTRATE 10 MG TABLET PO PRN (20:47)
[2023-07-28] MEDS: SIMVASTATIN 40 MG TABLET PO SCH (20:48)
[2023-07-28 21:41] LABS: GLUCOMETER DEV NAME(LOC) 3E.C; GLUCOSE,POINT OF CARE 290 MG/DL (70-110)
[2023-07-29] MEDS: MetFORMIN HCL 500 MG TABLET PO SCH ×2 (06:40→18:10)
[2023-07-29] MEDS: INSULIN LISPRO 100 UNITS/ML SQ PRN ×4 (07:01→21:11)
[2023-07-29 07:16] LABS: GLUCOMETER DEV NAME(LOC) 3E.C; GLUCOSE,POINT OF CARE 170 MG/DL (70-110)
[2023-07-29] MEDS: GABAPENTIN 300 MG CAPSULE PO SCH ×3 (09:52→18:10)
[2023-07-29] MEDS: ASCORBIC ACID 500 MG TABLET PO SCH (09:52)
[2023-07-29] MEDS: PIOGLITAZONE HCL 30 MG TABLET PO SCH (09:52)
[2023-07-29] MEDS: MULTIVITAMINS WITH MINERALS, THERAPEUTIC TABLET PO SCH (09:52)
[2023-07-29 10:34] VITALS: BP 151/88; PULSE 85; RESP 18; TEMP 97.1; O2SAT 97
[2023-07-29 11:36] LABS: GLUCOMETER DEV NAME(LOC) 3E.C; GLUCOSE,POINT OF CARE 197 MG/DL (70-110)
[2023-07-29 16:41] LABS: GLUCOMETER DEV NAME(LOC) 3E.C; GLUCOSE,POINT OF CARE 192 MG/DL (70-110)
[2023-07-29] MEDS: ZOLPIDEM TARTRATE 10 MG TABLET PO PRN (20:41)
[2023-07-29] MEDS: SIMVASTATIN 40 MG TABLET PO SCH (20:41)
[2023-07-29 21:16] LABS: GLUCOMETER DEV NAME(LOC) 3E.C; GLUCOSE,POINT OF CARE 136 MG/DL (70-110)
[2023-07-29 21:57] VITALS: RESP 17
[2023-07-30] MEDS: MetFORMIN HCL 500 MG TABLET PO SCH ×2 (06:44→16:11)
[2023-07-30] MEDS: INSULIN LISPRO 100 UNITS/ML SQ PRN ×4 (06:47→21:19)
[2023-07-30 07:16] LABS: GLUCOMETER DEV NAME(LOC) 3E.C; GLUCOSE,POINT OF CARE 206 MG/DL (70-110)
[2023-07-30] MEDS: MULTIVITAMINS WITH MINERALS, THERAPEUTIC TABLET PO SCH (08:32)
[2023-07-30] MEDS: ASCORBIC ACID 500 MG TABLET PO SCH (08:32)
[2023-07-30] MEDS: GABAPENTIN 300 MG CAPSULE PO SCH ×3 (08:32→16:11)
[2023-07-30] MEDS: PIOGLITAZONE HCL 30 MG TABLET PO SCH (08:32)
[2023-07-30 10:12] VITALS: BP 103/60; PULSE 80; RESP 16; TEMP 97.1; O2SAT 97
[2023-07-30 12:16] LABS: GLUCOMETER DEV NAME(LOC) 3E.C; GLUCOSE,POINT OF CARE 199 MG/DL (70-110)
[2023-07-30 16:56] LABS: GLUCOMETER DEV NAME(LOC) 3E.C; GLUCOSE,POINT OF CARE 213 MG/DL (70-110)
[2023-07-30] MEDS: ZOLPIDEM TARTRATE 10 MG TABLET PO PRN (20:56)
[2023-07-30] MEDS: HALOPERIDOL 5 MG TABLET PO SCH (20:57)
[2023-07-30] MEDS: SIMVASTATIN 40 MG TABLET PO SCH (20:57)
[2023-07-30 21:01] LABS: GLUCOMETER DEV NAME(LOC) 3E.C; GLUCOSE,POINT OF CARE 139 MG/DL (70-110)
[2023-07-30 21:54] VITALS: RESP 17
[2023-07-31] MEDS: MetFORMIN HCL 500 MG TABLET PO SCH ×2 (06:33→16:27)
[2023-07-31] MEDS: INSULIN LISPRO 100 UNITS/ML SQ PRN ×4 (06:43→21:03)
[2023-07-31 07:11] LABS: GLUCOMETER DEV NAME(LOC) 3E.C; GLUCOSE,POINT OF CARE 108 MG/DL (70-110)
[2023-07-31] MEDS: PIOGLITAZONE HCL 30 MG TABLET PO SCH (08:43)
[2023-07-31] MEDS: GABAPENTIN 300 MG CAPSULE PO SCH ×3 (08:43→16:27)
[2023-07-31] MEDS: MULTIVITAMINS WITH MINERALS, THERAPEUTIC TABLET PO SCH (08:43)
[2023-07-31] MEDS: ASCORBIC ACID 500 MG TABLET PO SCH (08:43)
[2023-07-31] MEDS: HALOPERIDOL 5 MG TABLET PO PRN (09:36)
[2023-07-31] MEDS: LORazepam 1 MG TABLET PO PRN (09:36)
[2023-07-31 09:47] VITALS: BP 157/89; PULSE 70; RESP 18; TEMP 97.7; O2SAT 95
[2023-07-31 11:41] LABS: GLUCOMETER DEV NAME(LOC) 3E.C; GLUCOSE,POINT OF CARE 153 MG/DL (70-110)
[2023-07-31 17:36] LABS: GLUCOMETER DEV NAME(LOC) 3E.C; GLUCOSE,POINT OF CARE 184 MG/DL (70-110)
[2023-07-31 20:35] LABS: GLUCOMETER DEV NAME(LOC) 3E.C; GLUCOSE,POINT OF CARE 210 MG/DL (70-110)
[2023-07-31] MEDS: HALOPERIDOL 5 MG TABLET PO SCH (21:19)
[2023-07-31] MEDS: ZOLPIDEM TARTRATE 10 MG TABLET PO PRN (21:29)
[2023-07-31] MEDS: SIMVASTATIN 40 MG TABLET PO SCH (21:29)
[2023-07-31 22:13] VITALS: BP 131/79; PULSE 79; RESP 18; TEMP 98.2; O2SAT 97
[2023-08-01 04:36] LABS: GLUCOMETER DEV NAME(LOC) 3E.C; GLUCOSE,POINT OF CARE 187 MG/DL (70-110)
[2023-08-01] MEDS: MetFORMIN HCL 500 MG TABLET PO SCH ×2 (06:39→18:51)
[2023-08-01] MEDS: INSULIN LISPRO 100 UNITS/ML SQ PRN ×4 (06:45→21:10)
[2023-08-01 09:46] VITALS: BP 142/99; PULSE 94; RESP 18; TEMP 97.9; O2SAT 98
[2023-08-01] MEDS: PIOGLITAZONE HCL 30 MG TABLET PO SCH (11:58)
[2023-08-01] MEDS: ASCORBIC ACID 500 MG TABLET PO SCH (11:58)
[2023-08-01] MEDS: GABAPENTIN 300 MG CAPSULE PO SCH ×3 (12:00→18:52)
[2023-08-01] MEDS: MULTIVITAMINS WITH MINERALS, THERAPEUTIC TABLET PO SCH (12:00)
[2023-08-01 12:02] LABS: GLUCOMETER DEV NAME(LOC) 3E.C; GLUCOSE,POINT OF CARE 127 MG/DL (70-110)
[2023-08-01 17:01] LABS: GLUCOMETER DEV NAME(LOC) 3E.C; GLUCOSE,POINT OF CARE 160 MG/DL (70-110)
[2023-08-01 20:41] LABS: GLUCOMETER DEV NAME(LOC) 3E.C; GLUCOSE,POINT OF CARE 130 MG/DL (70-110)
[2023-08-01] MEDS: SIMVASTATIN 40 MG TABLET PO SCH (20:52)
[2023-08-01] MEDS: ZOLPIDEM TARTRATE 10 MG TABLET PO PRN (20:52)
[2023-08-01] MEDS: HALOPERIDOL 5 MG TABLET PO SCH (20:52)
[2023-08-01 21:23] VITALS: BP 114/69; PULSE 70; RESP 18; TEMP 96.9; O2SAT 99
[2023-08-02 06:21] LABS: GLUCOMETER DEV NAME(LOC) 3E.C; GLUCOSE,POINT OF CARE 144 MG/DL (70-110)
[2023-08-02] MEDS: MetFORMIN HCL 500 MG TABLET PO SCH ×2 (06:34→17:37)
[2023-08-02] MEDS: INSULIN LISPRO 100 UNITS/ML SQ PRN ×4 (06:39→21:43)
[2023-08-02] MEDS: MULTIVITAMINS WITH MINERALS, THERAPEUTIC TABLET PO SCH (08:40)
[2023-08-02] MEDS: PIOGLITAZONE HCL 30 MG TABLET PO SCH (08:40)
[2023-08-02] MEDS: GABAPENTIN 300 MG CAPSULE PO SCH ×3 (08:40→17:37)
[2023-08-02] MEDS: ASCORBIC ACID 500 MG TABLET PO SCH (08:40)
[2023-08-02 09:00] VITALS: BP 137/76; PULSE 86; RESP 18; TEMP 97.9; O2SAT 98
[2023-08-02 11:46] LABS: GLUCOMETER DEV NAME(LOC) 3E.C; GLUCOSE,POINT OF CARE 139 MG/DL (70-110)
[2023-08-02 17:41] LABS: GLUCOMETER DEV NAME(LOC) 3E.C; GLUCOSE,POINT OF CARE 212 MG/DL (70-110)
[2023-08-02 20:25] VITALS: BP 138/79; PULSE 90; RESP 18; TEMP 97.8; O2SAT 97
[2023-08-02] MEDS: SIMVASTATIN 40 MG TABLET PO SCH (21:22)
[2023-08-02] MEDS: HALOPERIDOL 5 MG TABLET PO SCH (21:22)
[2023-08-02 21:31] LABS: GLUCOMETER DEV NAME(LOC) 3E.C; GLUCOSE,POINT OF CARE 148 MG/DL (70-110)
[2023-08-03 05:36] LABS: GLUCOMETER DEV NAME(LOC) 3E.C; GLUCOSE,POINT OF CARE 160 MG/DL (70-110)
[2023-08-03] MEDS: MetFORMIN HCL 500 MG TABLET PO SCH ×2 (07:00→17:05)
[2023-08-03] MEDS: INSULIN LISPRO 100 UNITS/ML SQ PRN ×4 (07:01→21:07)
[2023-08-03 09:00] VITALS: BP 136/72; PULSE 77; RESP 18; TEMP 97.2
[2023-08-03] MEDS: MULTIVITAMINS WITH MINERALS, THERAPEUTIC TABLET PO SCH (09:03)
[2023-08-03] MEDS: PIOGLITAZONE HCL 30 MG TABLET PO SCH (09:03)
[2023-08-03] MEDS: GABAPENTIN 300 MG CAPSULE PO SCH ×3 (09:03→17:05)
[2023-08-03] MEDS: ASCORBIC ACID 500 MG TABLET PO SCH (09:03)
[2023-08-03 11:37] LABS: GLUCOMETER DEV NAME(LOC) 3E.C; GLUCOSE,POINT OF CARE 164 MG/DL (70-110)
[2023-08-03] MEDS: LORazepam 1 MG TABLET PO PRN (13:19)
[2023-08-03] MEDS: HALOPERIDOL 5 MG TABLET PO PRN (13:19)
[2023-08-03 16:26] LABS: GLUCOMETER DEV NAME(LOC) 3E.C; GLUCOSE,POINT OF CARE 131 MG/DL (70-110)
[2023-08-03 20:53] LABS: GLUCOMETER DEV NAME(LOC) 3E.C; GLUCOSE,POINT OF CARE 187 MG/DL (70-110)
[2023-08-03] MEDS: SIMVASTATIN 40 MG TABLET PO SCH (21:28)
[2023-08-03] MEDS: HALOPERIDOL 5 MG TABLET PO SCH (21:29)
[2023-08-03] MEDS: ZOLPIDEM TARTRATE 10 MG TABLET PO PRN (21:29)
[2023-08-03 22:53] VITALS: BP 138/70; PULSE 85; RESP 18; TEMP 97.8; O2SAT 98
[2023-08-04] MEDS: INSULIN LISPRO 100 UNITS/ML SQ PRN ×3 (06:35→21:24)
[2023-08-04] MEDS: MetFORMIN HCL 500 MG TABLET PO SCH ×2 (06:48→17:55)
[2023-08-04 07:12] LABS: GLUCOMETER DEV NAME(LOC) 3E.C; GLUCOSE,POINT OF CARE 147 MG/DL (70-110)
[2023-08-04 08:00] VITALS: BP 145/78; PULSE 81; RESP 18; TEMP 97.2; O2SAT 96
[2023-08-04] MEDS: PIOGLITAZONE HCL 30 MG TABLET PO SCH (09:48)
[2023-08-04] MEDS: ASCORBIC ACID 500 MG TABLET PO SCH (09:49)
[2023-08-04] MEDS: GABAPENTIN 300 MG CAPSULE PO SCH ×3 (09:50→17:55)
[2023-08-04] MEDS: MULTIVITAMINS WITH MINERALS, THERAPEUTIC TABLET PO SCH (09:50)
[2023-08-04 12:16] LABS: GLUCOMETER DEV NAME(LOC) 3E.C; GLUCOSE,POINT OF CARE 150 MG/DL (70-110)
[2023-08-04 17:32] LABS: GLUCOMETER DEV NAME(LOC) 3E.C; GLUCOSE,POINT OF CARE 101 MG/DL (70-110)
[2023-08-04 20:18] VITALS: BP 128/78; PULSE 81; RESP 19; TEMP 97.2; O2SAT 99
[2023-08-04] MEDS: SIMVASTATIN 40 MG TABLET PO SCH (21:01)
[2023-08-04] MEDS: HALOPERIDOL 5 MG TABLET PO SCH (21:01)
[2023-08-04] MEDS: ZOLPIDEM TARTRATE 10 MG TABLET PO PRN (21:02)
[2023-08-04 21:43] LABS: GLUCOMETER DEV NAME(LOC) 3E.C; GLUCOSE,POINT OF CARE 239 MG/DL (70-110)
[2023-08-05] MEDS: MetFORMIN HCL 500 MG TABLET PO SCH ×2 (06:32→18:10)
[2023-08-05] MEDS: INSULIN LISPRO 100 UNITS/ML SQ PRN ×4 (06:37→21:43)
[2023-08-05 07:27] LABS: GLUCOMETER DEV NAME(LOC) 3E.C; GLUCOSE,POINT OF CARE 167 MG/DL (70-110)
[2023-08-05] MEDS: MULTIVITAMINS WITH MINERALS, THERAPEUTIC TABLET PO SCH (09:31)
[2023-08-05] MEDS: LORazepam 1 MG TABLET PO PRN (09:31)
[2023-08-05] MEDS: ASCORBIC ACID 500 MG TABLET PO SCH (09:31)
[2023-08-05] MEDS: PIOGLITAZONE HCL 30 MG TABLET PO SCH (09:32)
[2023-08-05] MEDS: HALOPERIDOL 5 MG TABLET PO PRN (09:32)
[2023-08-05] MEDS: GABAPENTIN 300 MG CAPSULE PO SCH ×3 (09:32→18:09)
[2023-08-05 11:56] LABS: GLUCOMETER DEV NAME(LOC) 3E.C; GLUCOSE,POINT OF CARE 121 MG/DL (70-110)
[2023-08-05 12:51] VITALS: BP 144/93; PULSE 78; RESP 17; TEMP 96.9; O2SAT 99
[2023-08-05 16:16] LABS: GLUCOMETER DEV NAME(LOC) 3E.C; GLUCOSE,POINT OF CARE 145 MG/DL (70-110)
[2023-08-05 20:57] LABS: GLUCOMETER DEV NAME(LOC) 3E.C; GLUCOSE,POINT OF CARE 203 MG/DL (70-110)
[2023-08-05] MEDS: HALOPERIDOL 5 MG TABLET PO SCH (21:07)
[2023-08-05] MEDS: SIMVASTATIN 40 MG TABLET PO SCH (21:08)
[2023-08-05] MEDS: ZOLPIDEM TARTRATE 10 MG TABLET PO PRN (21:08)
[2023-08-05 21:20] VITALS: BP 120/73; PULSE 79; RESP 18; TEMP 98.3; O2SAT 97
[2023-08-06 06:26] LABS: GLUCOMETER DEV NAME(LOC) 3E.C; GLUCOSE,POINT OF CARE 155 MG/DL (70-110)
[2023-08-06] MEDS: INSULIN LISPRO 100 UNITS/ML SQ PRN ×4 (06:45→21:34)
[2023-08-06] MEDS: MetFORMIN HCL 500 MG TABLET PO SCH ×2 (06:54→17:18)
[2023-08-06] MEDS: GABAPENTIN 300 MG CAPSULE PO SCH ×3 (08:46→17:18)
[2023-08-06] MEDS: MULTIVITAMINS WITH MINERALS, THERAPEUTIC TABLET PO SCH (08:46)
[2023-08-06] MEDS: PIOGLITAZONE HCL 30 MG TABLET PO SCH (08:46)
[2023-08-06] MEDS: ASCORBIC ACID 500 MG TABLET PO SCH (08:46)
[2023-08-06 10:00] VITALS: BP 136/87; PULSE 75; RESP 18; TEMP 98; O2SAT 98
[2023-08-06 11:46] LABS: GLUCOMETER DEV NAME(LOC) 3E.C; GLUCOSE,POINT OF CARE 129 MG/DL (70-110)
[2023-08-06 16:31] LABS: GLUCOMETER DEV NAME(LOC) 3E.C; GLUCOSE,POINT OF CARE 97 MG/DL (70-110)
[2023-08-06 21:01] LABS: GLUCOMETER DEV NAME(LOC) 3E.C; GLUCOSE,POINT OF CARE 260 MG/DL (70-110)
[2023-08-06] MEDS: SIMVASTATIN 40 MG TABLET PO SCH (21:08)
[2023-08-06] MEDS: HALOPERIDOL 5 MG TABLET PO SCH (21:08)
[2023-08-06] MEDS: ZOLPIDEM TARTRATE 10 MG TABLET PO PRN (21:08)
[2023-08-06 22:02] VITALS: BP 116/69; PULSE 78; RESP 19; TEMP 98; O2SAT 97
[2023-08-07 06:26] LABS: GLUCOMETER DEV NAME(LOC) 3E.C; GLUCOSE,POINT OF CARE 134 MG/DL (70-110)
[2023-08-07] MEDS: INSULIN LISPRO 100 UNITS/ML SQ PRN ×4 (06:39→21:34)
[2023-08-07] MEDS: MetFORMIN HCL 500 MG TABLET PO SCH ×2 (06:49→16:59)
[2023-08-07] MEDS: GABAPENTIN 300 MG CAPSULE PO SCH ×3 (08:33→16:59)
[2023-08-07] MEDS: ASCORBIC ACID 500 MG TABLET PO SCH (08:33)
[2023-08-07] MEDS: MULTIVITAMINS WITH MINERALS, THERAPEUTIC TABLET PO SCH (08:33)
[2023-08-07] MEDS: PIOGLITAZONE HCL 30 MG TABLET PO SCH (08:33)
[2023-08-07 11:04] VITALS: BP 128/90; PULSE 82; RESP 19; TEMP 97.8; O2SAT 98
[2023-08-07 11:41] LABS: GLUCOMETER DEV NAME(LOC) 3E.C; GLUCOSE,POINT OF CARE 120 MG/DL (70-110)
[2023-08-07 17:01] LABS: GLUCOMETER DEV NAME(LOC) 3E.C; GLUCOSE,POINT OF CARE 190 MG/DL (70-110)
[2023-08-07 20:00] VITALS: BP 126/69; PULSE 76; RESP 18; TEMP 97.8; O2SAT 97
[2023-08-07 21:01] LABS: GLUCOMETER DEV NAME(LOC) 3E.C; GLUCOSE,POINT OF CARE 163 MG/DL (70-110)
[2023-08-07] MEDS: HALOPERIDOL 5 MG TABLET PO SCH (21:03)
[2023-08-07] MEDS: SIMVASTATIN 40 MG TABLET PO SCH (21:04)
[2023-08-08 06:02] LABS: GLUCOMETER DEV NAME(LOC) 3E.C; GLUCOSE,POINT OF CARE 156 MG/DL (70-110)
[2023-08-08] MEDS: MetFORMIN HCL 500 MG TABLET PO SCH ×2 (06:47→16:29)
[2023-08-08] MEDS: INSULIN LISPRO 100 UNITS/ML SQ PRN ×4 (06:48→21:39)
[2023-08-08] MEDS: MULTIVITAMINS WITH MINERALS, THERAPEUTIC TABLET PO SCH (08:42)
[2023-08-08] MEDS: ASCORBIC ACID 500 MG TABLET PO SCH (08:42)
[2023-08-08] MEDS: HALOPERIDOL 5 MG TABLET PO PRN (08:42)
[2023-08-08] MEDS: GABAPENTIN 300 MG CAPSULE PO SCH ×3 (08:42→16:29)
[2023-08-08] MEDS: PIOGLITAZONE HCL 30 MG TABLET PO SCH (08:42)
[2023-08-08 09:00] VITALS: BP 127/75; PULSE 78; RESP 17; TEMP 97.1; O2SAT 96
[2023-08-08 11:42] LABS: GLUCOMETER DEV NAME(LOC) 3E.C; GLUCOSE,POINT OF CARE 141 MG/DL (70-110)
[2023-08-08 17:01] LABS: GLUCOMETER DEV NAME(LOC) 3E.C; GLUCOSE,POINT OF CARE 143 MG/DL (70-110)
[2023-08-08 20:41] LABS: GLUCOMETER DEV NAME(LOC) 3E.C; GLUCOSE,POINT OF CARE 175 MG/DL (70-110)
[2023-08-08] MEDS: HALOPERIDOL 5 MG TABLET PO SCH (20:54)
[2023-08-08] MEDS: SIMVASTATIN 40 MG TABLET PO SCH (20:54)
[2023-08-08 22:08] VITALS: BP 145/82; PULSE 73; RESP 18; TEMP 98; O2SAT 98
[2023-08-09 06:06] LABS: GLUCOMETER DEV NAME(LOC) 3E.C; GLUCOSE,POINT OF CARE 161 MG/DL (70-110)
[2023-08-09] MEDS: MetFORMIN HCL 500 MG TABLET PO SCH ×2 (06:51→19:07)
[2023-08-09] MEDS: INSULIN LISPRO 100 UNITS/ML SQ PRN ×4 (06:51→21:36)
[2023-08-09 08:00] VITALS: BP 148/85; PULSE 85; RESP 18; TEMP 97.2
[2023-08-09] MEDS: LORazepam 1 MG TABLET PO PRN (09:56)
[2023-08-09] MEDS: ASCORBIC ACID 500 MG TABLET PO SCH (09:57)
[2023-08-09] MEDS: MULTIVITAMINS WITH MINERALS, THERAPEUTIC TABLET PO SCH (09:57)
[2023-08-09] MEDS: GABAPENTIN 300 MG CAPSULE PO SCH ×3 (09:57→19:07)
[2023-08-09] MEDS: HALOPERIDOL 5 MG TABLET PO PRN (09:57)
[2023-08-09] MEDS: PIOGLITAZONE HCL 30 MG TABLET PO SCH (09:57)
[2023-08-09 11:31] LABS: GLUCOMETER DEV NAME(LOC) 3E.C; GLUCOSE,POINT OF CARE 167 MG/DL (70-110)
[2023-08-09 17:31] LABS: GLUCOMETER DEV NAME(LOC) 3E.C; GLUCOSE,POINT OF CARE 146 MG/DL (70-110)
[2023-08-09 20:36] LABS: GLUCOMETER DEV NAME(LOC) 3E.C; GLUCOSE,POINT OF CARE 202 MG/DL (70-110)
[2023-08-09 20:39] VITALS: BP 144/82; PULSE 83; RESP 18; TEMP 97.5; O2SAT 98
[2023-08-09] MEDS: SIMVASTATIN 40 MG TABLET PO SCH (20:39)
[2023-08-09] MEDS: HALOPERIDOL 5 MG TABLET PO SCH (20:40)
[2023-08-09] MEDS: ZOLPIDEM TARTRATE 10 MG TABLET PO PRN (22:55)
[2023-08-10 06:21] LABS: GLUCOMETER DEV NAME(LOC) 3E.C; GLUCOSE,POINT OF CARE 133 MG/DL (70-110)
[2023-08-10] MEDS: MetFORMIN HCL 500 MG TABLET PO SCH ×2 (06:48→16:21)
[2023-08-10] MEDS: INSULIN LISPRO 100 UNITS/ML SQ PRN ×4 (06:50→21:21)
[2023-08-10] MEDS: GABAPENTIN 300 MG CAPSULE PO SCH ×3 (08:53→16:21)
[2023-08-10] MEDS: ASCORBIC ACID 500 MG TABLET PO SCH (08:53)
[2023-08-10] MEDS: PIOGLITAZONE HCL 30 MG TABLET PO SCH (08:53)
[2023-08-10] MEDS: MULTIVITAMINS WITH MINERALS, THERAPEUTIC TABLET PO SCH (08:53)
[2023-08-10 09:00] VITALS: BP 149/98; PULSE 84; RESP 18; TEMP 96.9; O2SAT 95
[2023-08-10 11:36] LABS: GLUCOMETER DEV NAME(LOC) 3E.C; GLUCOSE,POINT OF CARE 139 MG/DL (70-110)
[2023-08-10 17:12] LABS: GLUCOMETER DEV NAME(LOC) 3E.C; GLUCOSE,POINT OF CARE 125 MG/DL (70-110)
[2023-08-10 20:46] LABS: GLUCOMETER DEV NAME(LOC) 3E.C; GLUCOSE,POINT OF CARE 162 MG/DL (70-110)
[2023-08-10] MEDS: HALOPERIDOL 5 MG TABLET PO SCH (20:56)
[2023-08-10] MEDS: SIMVASTATIN 40 MG TABLET PO SCH (20:56)
[2023-08-10] MEDS: ZOLPIDEM TARTRATE 10 MG TABLET PO PRN (21:08)
[2023-08-10 22:03] VITALS: BP 139/91; PULSE 90; RESP 20; TEMP 97.6; O2SAT 98
[2023-08-11 06:17] LABS: GLUCOMETER DEV NAME(LOC) 3E.C; GLUCOSE,POINT OF CARE 128 MG/DL (70-110)
[2023-08-11] MEDS: INSULIN LISPRO 100 UNITS/ML SQ PRN ×4 (06:45→21:08)
[2023-08-11] MEDS: MetFORMIN HCL 500 MG TABLET PO SCH ×2 (06:49→16:57)
[2023-08-11] MEDS: MULTIVITAMINS WITH MINERALS, THERAPEUTIC TABLET PO SCH (08:08)
[2023-08-11] MEDS: ASCORBIC ACID 500 MG TABLET PO SCH (08:08)
[2023-08-11] MEDS: PIOGLITAZONE HCL 30 MG TABLET PO SCH (08:08)
[2023-08-11] MEDS: GABAPENTIN 300 MG CAPSULE PO SCH ×3 (08:08→16:56)
[2023-08-11 09:43] VITALS: BP 142/91; PULSE 85; RESP 19; TEMP 97.4; O2SAT 100
[2023-08-11 11:46] LABS: GLUCOMETER DEV NAME(LOC) 3E.C; GLUCOSE,POINT OF CARE 129 MG/DL (70-110)
[2023-08-11 16:26] LABS: GLUCOMETER DEV NAME(LOC) 3E.C; GLUCOSE,POINT OF CARE 100 MG/DL (70-110)
[2023-08-11 20:41] LABS: GLUCOMETER DEV NAME(LOC) 3E.C; GLUCOSE,POINT OF CARE 268 MG/DL (70-110)
[2023-08-11] MEDS: HALOPERIDOL 5 MG TABLET PO SCH (21:00)
[2023-08-11] MEDS: SIMVASTATIN 40 MG TABLET PO SCH (21:00)
[2023-08-11] MEDS: ZOLPIDEM TARTRATE 10 MG TABLET PO PRN (21:01)
[2023-08-11 21:27] VITALS: BP 105/66; PULSE 78; RESP 18; TEMP 97.8; O2SAT 98
[2023-08-12 06:11] LABS: GLUCOMETER DEV NAME(LOC) 3E.C; GLUCOSE,POINT OF CARE 149 MG/DL (70-110)
[2023-08-12] MEDS: INSULIN LISPRO 100 UNITS/ML SQ PRN ×4 (06:52→21:09)
[2023-08-12] MEDS: MetFORMIN HCL 500 MG TABLET PO SCH ×2 (06:54→17:28)
[2023-08-12] MEDS: GABAPENTIN 300 MG CAPSULE PO SCH ×3 (09:20→17:28)
[2023-08-12] MEDS: ASCORBIC ACID 500 MG TABLET PO SCH (09:21)
[2023-08-12] MEDS: HALOPERIDOL 5 MG TABLET PO PRN (09:21)
[2023-08-12] MEDS: PIOGLITAZONE HCL 30 MG TABLET PO SCH (09:21)
[2023-08-12] MEDS: MULTIVITAMINS WITH MINERALS, THERAPEUTIC TABLET PO SCH (09:21)
[2023-08-12 10:45] VITALS: BP 148/105; PULSE 74; RESP 18; TEMP 97.8; O2SAT 98
[2023-08-12 11:46] LABS: GLUCOMETER DEV NAME(LOC) 3E.C; GLUCOSE,POINT OF CARE 116 MG/DL (70-110)
[2023-08-12 16:31] LABS: GLUCOMETER DEV NAME(LOC) 3E.C; GLUCOSE,POINT OF CARE 130 MG/DL (70-110)
[2023-08-12 21:01] LABS: GLUCOMETER DEV NAME(LOC) 3E.C; GLUCOSE,POINT OF CARE 192 MG/DL (70-110)
[2023-08-12] MEDS: HALOPERIDOL 5 MG TABLET PO SCH (21:08)
[2023-08-12] MEDS: SIMVASTATIN 40 MG TABLET PO SCH (21:08)
[2023-08-12 22:01] VITALS: BP 122/69; PULSE 84; RESP 18; TEMP 98.2; O2SAT 98
[2023-08-13 06:21] LABS: GLUCOMETER DEV NAME(LOC) 3E.C; GLUCOSE,POINT OF CARE 152 MG/DL (70-110)
[2023-08-13] MEDS: INSULIN LISPRO 100 UNITS/ML SQ PRN ×4 (06:42→21:29)
[2023-08-13] MEDS: MetFORMIN HCL 500 MG TABLET PO SCH ×2 (06:44→18:09)
[2023-08-13] MEDS: MULTIVITAMINS WITH MINERALS, THERAPEUTIC TABLET PO SCH (08:50)
[2023-08-13] MEDS: GABAPENTIN 300 MG CAPSULE PO SCH ×3 (08:50→18:09)
[2023-08-13] MEDS: ASCORBIC ACID 500 MG TABLET PO SCH (08:51)
[2023-08-13] MEDS: PIOGLITAZONE HCL 30 MG TABLET PO SCH (08:51)
[2023-08-13 09:37] VITALS: BP 129/90; PULSE 90; RESP 18; TEMP 96.9; O2SAT 97
[2023-08-13 11:31] LABS: GLUCOMETER DEV NAME(LOC) 3E.C; GLUCOSE,POINT OF CARE 102 MG/DL (70-110)
[2023-08-13 16:31] LABS: GLUCOMETER DEV NAME(LOC) 3E.C; GLUCOSE,POINT OF CARE 123 MG/DL (70-110)
[2023-08-13 20:22] LABS: GLUCOMETER DEV NAME(LOC) 3E.C; GLUCOSE,POINT OF CARE 130 MG/DL (70-110)
[2023-08-13] MEDS: SIMVASTATIN 40 MG TABLET PO SCH (20:33)
[2023-08-13] MEDS: HALOPERIDOL 5 MG TABLET PO SCH (20:33)
[2023-08-13 21:11] VITALS: BP 125/78; PULSE 89; RESP 18; TEMP 97.2
[2023-08-13] MEDS: ZOLPIDEM TARTRATE 10 MG TABLET PO PRN (21:28)
[2023-08-14 05:36] LABS: GLUCOMETER DEV NAME(LOC) 3E.C; GLUCOSE,POINT OF CARE 151 MG/DL (70-110)
[2023-08-14] MEDS: INSULIN LISPRO 100 UNITS/ML SQ PRN ×4 (06:41→21:15)
[2023-08-14] MEDS: MetFORMIN HCL 500 MG TABLET PO SCH ×2 (06:41→17:19)
[2023-08-14] MEDS: MULTIVITAMINS WITH MINERALS, THERAPEUTIC TABLET PO SCH (10:16)
[2023-08-14] MEDS: ASCORBIC ACID 500 MG TABLET PO SCH (10:16)
[2023-08-14] MEDS: PIOGLITAZONE HCL 30 MG TABLET PO SCH (10:16)
[2023-08-14] MEDS: GABAPENTIN 300 MG CAPSULE PO SCH ×3 (10:16→17:19)
[2023-08-14 11:35] LABS: GLUCOMETER DEV NAME(LOC) 3E.C; GLUCOSE,POINT OF CARE 112 MG/DL (70-110)
[2023-08-14 12:34] VITALS: BP 137/79; PULSE 70; RESP 18; TEMP 96.7; O2SAT 97
[2023-08-14 17:21] LABS: GLUCOMETER DEV NAME(LOC) 3E.C; GLUCOSE,POINT OF CARE 127 MG/DL (70-110)
[2023-08-14 21:00] LABS: GLUCOMETER DEV NAME(LOC) 3E.C; GLUCOSE,POINT OF CARE 150 MG/DL (70-110)
[2023-08-14 21:01] VITALS: BP 143/86; PULSE 80; RESP 18; TEMP 96.9; O2SAT 97
[2023-08-14] MEDS: HALOPERIDOL 5 MG TABLET PO SCH (21:23)
[2023-08-14] MEDS: SIMVASTATIN 40 MG TABLET PO SCH (21:23)
[2023-08-14] MEDS: ZOLPIDEM TARTRATE 10 MG TABLET PO PRN (21:23)
[2023-08-15] MEDS: MetFORMIN HCL 500 MG TABLET PO SCH ×2 (06:34→18:18)
[2023-08-15] MEDS: INSULIN LISPRO 100 UNITS/ML SQ PRN ×3 (06:37→18:19)
[2023-08-15 06:46] LABS: GLUCOMETER DEV NAME(LOC) 3E.C; GLUCOSE,POINT OF CARE 151 MG/DL (70-110)
[2023-08-15 08:42] VITALS: BP 133/85; PULSE 82; RESP 18; TEMP 97; O2SAT 100
[2023-08-15] MEDS: GABAPENTIN 300 MG CAPSULE PO SCH ×3 (10:18→18:18)
[2023-08-15] MEDS: PIOGLITAZONE HCL 30 MG TABLET PO SCH (10:18)
[2023-08-15] MEDS: MULTIVITAMINS WITH MINERALS, THERAPEUTIC TABLET PO SCH (10:18)
[2023-08-15] MEDS: ASCORBIC ACID 500 MG TABLET PO SCH (10:18)
[2023-08-15] MEDS: HALOPERIDOL 5 MG TABLET PO PRN (12:00)
[2023-08-15] MEDS: LORazepam 1 MG TABLET PO PRN (12:00)
[2023-08-15 12:11] LABS: GLUCOMETER DEV NAME(LOC) 3E.C; GLUCOSE,POINT OF CARE 136 MG/DL (70-110)
[2023-08-15 17:37] LABS: GLUCOMETER DEV NAME(LOC) 3E.C; GLUCOSE,POINT OF CARE 100 MG/DL (70-110)
[2023-08-15 21:06] LABS: GLUCOMETER DEV NAME(LOC) 3E.C; GLUCOSE,POINT OF CARE 187 MG/DL (70-110)
[2023-08-15] MEDS: HALOPERIDOL 5 MG TABLET PO SCH (21:32)
[2023-08-15] MEDS: SIMVASTATIN 40 MG TABLET PO SCH (21:33)
[2023-08-15] MEDS: ZOLPIDEM TARTRATE 10 MG TABLET PO PRN (21:33)
[2023-08-15 23:21] VITALS: BP 117/82; PULSE 84; RESP 18; TEMP 97.9
[2023-08-16 02:03] LABS: COVID AG,FIA SOURCE NASAL SWAB
[2023-08-16 03:10] LABS: SARS-COV2 (COVID) ANTIGEN,FIA Negative (Negative)
[2023-08-16 05:31] LABS: GLUCOMETER DEV NAME(LOC) 3E.C; GLUCOSE,POINT OF CARE 147 MG/DL (70-110)
[2023-08-16] MEDS: MetFORMIN HCL 500 MG TABLET PO SCH ×2 (06:55→17:33)
[2023-08-16] MEDS: ASCORBIC ACID 500 MG TABLET PO SCH (08:36)
[2023-08-16] MEDS: MULTIVITAMINS WITH MINERALS, THERAPEUTIC TABLET PO SCH (08:36)
[2023-08-16] MEDS: PIOGLITAZONE HCL 30 MG TABLET PO SCH (08:36)
[2023-08-16] MEDS: GABAPENTIN 300 MG CAPSULE PO SCH ×3 (08:36→16:50)
[2023-08-16 09:14] VITALS: BP 145/87; PULSE 85; RESP 18; TEMP 97.2; O2SAT 98
[2023-08-16 11:46] LABS: GLUCOMETER DEV NAME(LOC) 3E.C; GLUCOSE,POINT OF CARE 146 MG/DL (70-110)
[2023-08-16] MEDS: INSULIN LISPRO 100 UNITS/ML SQ PRN ×3 (12:24→21:15)
[2023-08-16 16:50] LABS: GLUCOMETER DEV NAME(LOC) 3E.C; GLUCOSE,POINT OF CARE 125 MG/DL (70-110)
[2023-08-16] MEDS: SIMVASTATIN 40 MG TABLET PO SCH (20:50)
[2023-08-16] MEDS: HALOPERIDOL 5 MG TABLET PO SCH (20:50)
[2023-08-16 21:16] LABS: GLUCOMETER DEV NAME(LOC) 3E.C; GLUCOSE,POINT OF CARE 147 MG/DL (70-110)
[2023-08-16 22:33] VITALS: BP 128/75; PULSE 78; RESP 18; TEMP 98.2; O2SAT 96
[2023-08-17 06:11] LABS: GLUCOMETER DEV NAME(LOC) 3E.C; GLUCOSE,POINT OF CARE 124 MG/DL (70-110)
[2023-08-17] MEDS: INSULIN LISPRO 100 UNITS/ML SQ PRN ×4 (06:44→21:21)
[2023-08-17] MEDS: MetFORMIN HCL 500 MG TABLET PO SCH ×2 (06:45→16:55)
[2023-08-17 08:40] VITALS: BP 144/81; PULSE 77; RESP 18; TEMP 98; O2SAT 97
[2023-08-17] MEDS: PIOGLITAZONE HCL 30 MG TABLET PO SCH (09:06)
[2023-08-17] MEDS: ASCORBIC ACID 500 MG TABLET PO SCH (09:07)
[2023-08-17] MEDS: GABAPENTIN 300 MG CAPSULE PO SCH ×3 (09:07→16:55)
[2023-08-17] MEDS: MULTIVITAMINS WITH MINERALS, THERAPEUTIC TABLET PO SCH (09:07)
[2023-08-17 11:56] LABS: GLUCOMETER DEV NAME(LOC) 3E.C; GLUCOSE,POINT OF CARE 113 MG/DL (70-110)
[2023-08-17 16:51] LABS: GLUCOMETER DEV NAME(LOC) 3E.C; GLUCOSE,POINT OF CARE 232 MG/DL (70-110)
[2023-08-17 20:49] VITALS: BP 141/80; PULSE 78; RESP 18; TEMP 97.7; O2SAT 98
[2023-08-17] MEDS: SIMVASTATIN 40 MG TABLET PO SCH (21:19)
[2023-08-17] MEDS: HALOPERIDOL 5 MG TABLET PO SCH (21:20)
[2023-08-17 21:36] LABS: GLUCOMETER DEV NAME(LOC) 3E.C; GLUCOSE,POINT OF CARE 129 MG/DL (70-110)
[2023-08-18] MEDS: INSULIN LISPRO 100 UNITS/ML SQ PRN ×4 (05:57→21:33)
[2023-08-18 06:06] LABS: GLUCOMETER DEV NAME(LOC) 3E.C; GLUCOSE,POINT OF CARE 152 MG/DL (70-110)
[2023-08-18] MEDS: MetFORMIN HCL 500 MG TABLET PO SCH ×2 (06:34→18:08)
[2023-08-18 08:59] VITALS: BP_SYST 137; PULSE 78; RESP 18; TEMP 97.9; O2SAT 98
[2023-08-18] MEDS: MULTIVITAMINS WITH MINERALS, THERAPEUTIC TABLET PO SCH (10:56)
[2023-08-18] MEDS: PIOGLITAZONE HCL 30 MG TABLET PO SCH (10:56)
[2023-08-18] MEDS: ASCORBIC ACID 500 MG TABLET PO SCH (10:56)
[2023-08-18] MEDS: GABAPENTIN 300 MG CAPSULE PO SCH ×3 (10:56→18:08)
[2023-08-18 12:11] LABS: GLUCOMETER DEV NAME(LOC) 3E.C; GLUCOSE,POINT OF CARE 148 MG/DL (70-110)
[2023-08-18] MEDS: HALOPERIDOL DECANOATE 100 MG/ML VIAL IM SCH (15:20)
[2023-08-18 16:41] LABS: GLUCOMETER DEV NAME(LOC) 3E.C; GLUCOSE,POINT OF CARE 143 MG/DL (70-110)
[2023-08-18] MEDS: ZOLPIDEM TARTRATE 10 MG TABLET PO PRN (20:56)
[2023-08-18] MEDS: SIMVASTATIN 40 MG TABLET PO SCH (20:56)
[2023-08-18] MEDS: HALOPERIDOL 5 MG TABLET PO SCH (20:56)
[2023-08-18 21:28] VITALS: BP 130/81; PULSE 76; RESP 18; TEMP 97.8; O2SAT 98
[2023-08-18 22:51] LABS: GLUCOMETER DEV NAME(LOC) 3E.C; GLUCOSE,POINT OF CARE 101 MG/DL (70-110)
[2023-08-19] MEDS: LORazepam 1 MG TABLET PO PRN (02:20)
[2023-08-19] MEDS: INSULIN LISPRO 100 UNITS/ML SQ PRN ×4 (06:46→21:31)
[2023-08-19] MEDS: MetFORMIN HCL 500 MG TABLET PO SCH ×2 (06:47→18:09)
[2023-08-19 07:06] LABS: GLUCOMETER DEV NAME(LOC) 3E.C; GLUCOSE,POINT OF CARE 134 MG/DL (70-110)
[2023-08-19 09:13] VITALS: BP 136/75; PULSE 70; RESP 18; TEMP 97.2; O2SAT 100
[2023-08-19] MEDS: GABAPENTIN 300 MG CAPSULE PO SCH ×3 (10:22→18:10)
[2023-08-19] MEDS: MULTIVITAMINS WITH MINERALS, THERAPEUTIC TABLET PO SCH (10:22)
[2023-08-19] MEDS: ASCORBIC ACID 500 MG TABLET PO SCH (10:23)
[2023-08-19] MEDS: PIOGLITAZONE HCL 30 MG TABLET PO SCH (10:23)
[2023-08-19 11:37] LABS: GLUCOMETER DEV NAME(LOC) 3E.C; GLUCOSE,POINT OF CARE 175 MG/DL (70-110)
[2023-08-19 17:46] LABS: GLUCOMETER DEV NAME(LOC) 3E.C; GLUCOSE,POINT OF CARE 141 MG/DL (70-110)
[2023-08-19 20:50] VITALS: BP 101/79; PULSE 79; RESP 18; TEMP 97.1; O2SAT 98
[2023-08-19] MEDS: HALOPERIDOL 5 MG TABLET PO SCH (21:05)
[2023-08-19] MEDS: SIMVASTATIN 40 MG TABLET PO SCH (21:05)
[2023-08-19 21:27] LABS: COVID AG,FIA SOURCE NASAL SWAB
[2023-08-19 21:46] LABS: GLUCOMETER DEV NAME(LOC) 3E.C; GLUCOSE,POINT OF CARE 128 MG/DL (70-110)
[2023-08-19 21:48] LABS: SARS-COV2 (COVID) ANTIGEN,FIA Negative (Negative)
[2023-08-20] MEDS: MetFORMIN HCL 500 MG TABLET PO SCH (06:47)
[2023-08-20] MEDS: INSULIN LISPRO 100 UNITS/ML SQ PRN ×2 (06:49→11:54)
[2023-08-20 07:17] LABS: GLUCOMETER DEV NAME(LOC) 3E.C; GLUCOSE,POINT OF CARE 151 MG/DL (70-110)
[2023-08-20] MEDS: MULTIVITAMINS WITH MINERALS, THERAPEUTIC TABLET PO SCH (08:12)
[2023-08-20] MEDS: GABAPENTIN 300 MG CAPSULE PO SCH ×2 (08:12→12:13)
[2023-08-20] MEDS: ASCORBIC ACID 500 MG TABLET PO SCH (08:12)
[2023-08-20] MEDS: PIOGLITAZONE HCL 30 MG TABLET PO SCH (08:12)
[2023-08-20] MEDS: LORazepam 1 MG TABLET PO PRN (11:19)
[2023-08-20] MEDS: HALOPERIDOL 5 MG TABLET PO PRN (11:19)
[2023-08-20 11:47] LABS: GLUCOMETER DEV NAME(LOC) 3E.C; GLUCOSE,POINT OF CARE 147 MG/DL (70-110)
[2023-08-20] MEDS ORDERED: HALO100V36 IM (13:00)
[2023-08-20 14:31] VITALS: BP 141/101; PULSE 82; RESP 18; TEMP 98.6; O2SAT 98
== END 2023-08-20 15:13 | disposition home or self-care (01) | DRG 750 ==
LOC: EMS 19:24 → B2S 06-16 00:06 → B3A 06-17 18:30 → 3EI 07-11 03:29
PROVIDERS: ADMIT Psychiatry & Neurology Psychiatry; ATTEND Psychiatry & Neurology Psychiatry
PROC: 0JBR0ZZ Excision of Left Foot Subcutaneous Tissue and Fascia, Open Approach (ICD-10-PCS; principal; 2023-07-15)
DX: F25.1 Schizoaffective disorder, depressive type (principal); E11.52 Type 2 diabetes mellitus with diabetic peripheral angiopathy with gangrene; R45.851 Suicidal ideations; M86.8X7 Other osteomyelitis, ankle and foot; L97.529 Non-pressure chronic ulcer of other part of left foot with unspecified severity; E11.42 Type 2 diabetes mellitus with diabetic polyneuropathy; L02.612 Cutaneous abscess of left foot; E11.69 Type 2 diabetes mellitus with other specified complication; E11.621 Type 2 diabetes mellitus with foot ulcer; Z20.822 Contact with and (suspected) exposure to COVID-19; E11.65 Type 2 diabetes mellitus with hyperglycemia; G47.00 Insomnia, unspecified; I10 Essential (primary) hypertension; E55.9 Vitamin D deficiency, unspecified; K59.00 Constipation, unspecified; Z90.49 Acquired absence of other specified parts of digestive tract; Z79.84 Long term (current) use of oral hypoglycemic drugs; Z79.899 Other long term (current) drug therapy; Z59.00 Homelessness unspecified
CPT/HCPCS: 80048; 80053; 80307; 82962; 85025; 87081; 99285; G0480; J1200; J1630; J1631; J1815; J2060; J3490; J7120

== ENCOUNTER 2023-07-15 08:42 | Day surgery (SDC) | payer OTHER ==
[~2023-07-15 08:42] MED LIST changes: +BUPIVACAINE HCL/PF 0.5% 30 ML VIAL ONE; +LIDOCAINE/PF 1% 30 ML VIAL ONE; +RINGERS SOLUTION,LACTATED 1,000 ML IV ONE; +SODIUM CL IRRIG SOLN BAG 3,000 ML IRRIG ONE
[2023-07-15] MEDS ORDERED: PROPOFOL 1% ISO-OSM 1000 MG/100 ML BOTTLE IV ONE (08:43)
[2023-07-15] MEDS ORDERED: FentaNYL CITRATE PF 100 MCG/2 ML VIAL IVP ONE (08:43)
[2023-07-15] MEDS ORDERED: MIDAZOLAM HCL 2 MG/2 ML VIAL IVP ONE (08:43)
[2023-07-15] MEDS ORDERED: 0.9% SODIUM CHLORIDE 10 ML VIAL IVP ONE (08:43)
[2023-07-15] MEDS ORDERED: CeFAZolin SODIUM 1 GM VIAL IVP ONE (08:43)
== END 2023-07-15 09:05 | disposition home or self-care (01) ==
LOC: SDS 08:42
PROVIDERS: ATTEND Podiatrist Foot & Ankle Surgery
DX: E11.621 Type 2 diabetes mellitus with foot ulcer (principal); L97.529 Non-pressure chronic ulcer of other part of left foot with unspecified severity; M86.8X7 Other osteomyelitis, ankle and foot; I10 Essential (primary) hypertension; F32.A Depression, unspecified
CPT/HCPCS: 11426; 87206; 87101; 88305; 87015; J3490 ×2; J0690; J3010; J2250; J2704; 87070; 87205; Z7610